=== PATIENT | male | born 1940 | race Caucasian/White ===

== ENCOUNTER 2017-10-22 15:08 | Emergency (ER) | payer MEDICARE, OTHER, SELFPAY ==
[2017-10-22 15:10] VITALS: BP 136/49; PULSE 59; RESP 16; TEMP 36.8; O2SAT 96; BMI 30.8
--- NOTE | 2017-10-22 15:30 | RAD_ITS ---
STUDY: X-RAY - LEFT HAND REASON FOR EXAM: Male, 76 years old. Nail in fingers. TECHNIQUE: 3 view(s) of the hand. COMPARISON: None. FINDINGS: There is a nail spanning the middle phalanges of the left third and fourth fingers. The remainder of the visualized osseous structures are within normal limits. There is no dislocation. There are no radiodense foreign bodies. RAD/Hand Min 3 Views IMPRESSION: Nail spanning the middle phalanges of the left third and fourth fingers. Electronically Signed: Edward Rossi, at 15:54 EDT Tel , Service support ,
--- NOTE | 2017-10-22 15:41 | ED.VISSUMM ---
- ER Visit Summary Date of Service: 10/22/17 Chief Complaint: Nail through and through left long and ring fingers History of Present Illness: The patient is a 76 M past medical history of gout. On no blood thinners. Patient states he was making plantars at home using a pneumatic nail gun and accidentally put a nail through and through his left long finger and then through and through his left ring finger. He is right-hand dominant. States his last tetanus shot was 38 years ago. Physical Examination: Well appearing older male. Vital signs are stable afebrile. Exam is unremarkable except his left hand the palmar distal aspect of the left ring finger is a through and through nail and then he goes into and through and through the distal end of the left ring finger. Both are neurovascularly intact with distal cap refill and touch sensation. Test Results: X-ray of the left hand shows an obvious nail through and through both the left long and ring fingers. There does not appear to be any bony injury. Emergency Department Course and Treatment: Removal of the hardware nail through and through the left long and ring fingers. Digital block of both the long and ring fingers. Once proper anesthetic was obtained. I made an small incision on the ulnar side of the left long finger easily remove the nail from the skin there. There is no involvement of the tendon bone or joint. Then I pulled the nail out of the through and through injury of the left ring finger. Both areas were cleaned thoroughly and washed with saline and also cleaned with iodine. After I removed the nail he had full range of motion back with flexion-extension both the left ring and long fingers. Patient tolerated the procedure exceedingly well. Treatment Plan: Tetanus updated. Keflex 500 4 times daily for 1 week. Follow-up his primary care physician. Both wounds be cleaned and dressed. Disposition: Discharge Impression: Hardware nail through and through soft tissue injury of the left long and ring fingers. Hardware nail removed by ER physician Digital blocks ?2 by ER physician of the left long and ring fingers. This note was generated with [employer] dictation software. It may contain incorrect words, spelling, and punctuation that were not noted in review of the chart prior to signing ED Disposition - Plan for ED Patient: Chief Complaint: Upper Extremity Injury Referrals: Florentino Wright MD [STAFF PHYSICIAN] -
[2017-10-22] MEDS: Diphth,Pertuss(Acell),Tet Vac 0.5 ML Vial IM (15:42)
--- NOTE | 2017-10-22 15:44 | ED.DCSUM_ITS ---
- ER Visit Summary Date of Service: 10/22/17 Chief Complaint: Nail through and through left long and ring fingers History of Present Illness: The patient is a 76 M past medical history of gout. On no blood thinners. Patient states he was making plantars at home using a pneumatic nail gun and accidentally put a nail through and through his left long finger and then through and through his left ring finger. He is right- hand dominant. States his last tetanus shot was 38 years ago. Physical Examination: Well appearing older male. Vital signs are stable afebrile. Exam is unremarkable except his left hand the palmar distal aspect of the left ring finger is a through and through nail and then he goes into and through and through the distal end of the left ring finger. Both are neurovascularly intact with distal cap refill and touch sensation. Test Results: X-ray of the left hand shows an obvious nail through and through both the left long and ring fingers. There does not appear to be any bony injury. Emergency Department Course and Treatment: Removal of the hardware nail through and through the left long and ring fingers. Digital block of both the long and ring fingers. Once proper anesthetic was obtained. I made an small incision on the ulnar side of the left long finger easily remove the nail from the skin there. There is no involvement of the tendon bone or joint. Then I pulled the nail out of the through and through injury of the left ring finger. Both areas were cleaned thoroughly and washed with saline and also cleaned with iodine. After I removed the nail he had full range of motion back with flexion- extension both the left ring and long fingers. Patient tolerated the procedure exceedingly well. Treatment Plan: Tetanus updated. Keflex 500 4 times daily for 1 week. Follow- up his primary care physician. Both wounds be cleaned and dressed. Disposition: Discharge Impression: Hardware nail through and through soft tissue injury of the left long and ring fingers. Hardware nail removed by ER physician Digital blocks ?2 by ER physician of the left long and ring fingers. This note was generated with [employer] dictation software. It may contain incorrect words, spelling, and punctuation that were not noted in review of the chart prior to signing ED Disposition - Plan for ED Patient: Chief Complaint: Upper Extremity Injury Referrals: Florentino Wright MD [STAFF PHYSICIAN] -
--- NOTE | 2017-10-22 16:10 | ED.DEP ---
ED Disposition - Plan for ED Patient: Disposition: Home or Assisted Living Chief Complaint: Upper Extremity Injury Instructions: ED Wound Puncture General Prescriptions: Cephalexin [Keflex] 500 mg PO Q6 7 Days cap Referrals: Choco Burgos DO [Primary Care Provider] - 3-5 Days Additional Instructions: Clean both fingers twice daily and apply antibiotic ointment to the puncture wounds. Return if redness, fever or streaks up the arm. These are all signs of infection. Vicodin as needed for pain. Keflex 1 pill 4 times a day till gone try to prevent infection. Follow-up with in 3-5 days or return to ER if worse.
[2017-10-22] MEDS: Cephalexin 250 MG Capsule 500 MG PO (16:43)
[2017-10-22 16:44] VITALS: BP 132/75; PULSE 58; RESP 14; O2SAT 99
== END 2017-10-22 16:45 | disposition home or self-care (01) ==
PROVIDERS: Emergency Provider Emergency Medicine; Family Provider Family Medicine; PCP Family Medicine
DX: S61.243A Puncture wound with foreign body of left middle finger without damage to nail, initial encounter (principal); S61.245A Puncture wound with foreign body of left ring finger without damage to nail, initial encounter; M10.9 Gout, unspecified; Z23 Encounter for immunization; Z79.899 Other long term (current) drug therapy; W45.0XXA Nail entering through skin, initial encounter; W29.4XXA Contact with nail gun, initial encounter; Y93.89 Activity, other specified; Y92.008 Other place in unspecified non-institutional (private) residence as the place of occurrence of the external cause; Y99.8 Other external cause status
CPT/HCPCS: 10120; 73130; 90715; 99283

== ENCOUNTER → 2018-03-27 16:18 | Outpatient (CLI) | payer MEDICARE, OTHER, SELFPAY ==
[2018-03-27 17:41] LABS: Absolute Lymphocyte Count 2.61 X10^3/ul (0.83-4.51); Absolute Neutrophil Count 3.4 X10^3/uL (2.0-7.7); Basophil# 0.01 X10^3/uL; Basophil% 0.1 % (0-1); Eosinophil# 0.22 X10^3/uL; Eosinophils% 3.1 % (0-5); Hematocrit 44.4 % (40-54); Hemoglobin 14.4 g/dl (13.0-16.5); Lymphocyte # 2.61 X10^3/ul (4.0); Lymphocyte % 36.8 % (19-41); Mean Corp Hgb Conc 32.4 g/gl (32-36); Mean Corpuscular Hgb 33.8 pg (27.0-32.0); Mean Corpuscular Volume 104.2 fL (80-94); Mean Platelet Vol. 9.9 fl (6.2-12.0); Monocyte# 0.88 X10^3/uL; Monocyte% 12.4 % (0-10); Neutrophil # 3.36 X10^3/uL (2.7-7.7); Neutrophil % 47.5 % (47-70); Platelet Count 272 K/mm3 (150-450); RBC Distribution Width CV 13.7 % (11.6-14.6); RBC Distribution Width SD 52.5 fl (35.1-43.9); Red Blood Count 4.26 M/mm3 (4.6-6.2); White Blood Count 7.1 K/mm3 (4.4-11.0)
[2018-03-27 17:46] LABS: POSITIVE COUNT NO; POSITIVE DIFFERENTIAL NO; POSITIVE MORPHOLOGY NO
[2018-03-27 18:29] LABS: ALB/GLOB Ratio 1.2 RATIO (0.9-2.4); AST(SGOT) 25 U/L (15-37); Alanine Aminotransfer ALT/SGPT 41 U/L (16-61); Albumin, Serum 4.1 g/dL (3.2-5.0); Alkaline Phosphatase 65 U/L (45-117); Anion Gap 7 (5-15); BUN 22 mg/dL (7-18); BUN/Creat Ratio 20.8 RATIO (10-20); Calcium,Total 8.5 mg/dL (8.5-10.1); Chloride 102 mmol/L (98-107); Cholesterol 135 mg/dL (200); Creatinine, Serum 1.06 mg/dL (0.70-1.30); EST Glomerular Filtration Rate 72 mL/min (>60); Est Glom Filt Rate - Afr Amer 87 mL/min (>60); Globulin 3.5 g/dL (2.2-4.2); Glucose 102 mg/dL (74-106); High Density Lipoprotein 29 mg/dL; Potassium 4.1 mmol/L (3.5-5.1); Protein, Total 7.6 g/dL (6.4-8.2); Sodium Level 139 mmol/L (136-145); T4 Free Direct 0.88 ng/dL (0.76-1.46); Thyroid Stim Hormone (TSH) 2.07 uIU/mL (0.358-3.74); Triglycerides 327 mg/dL; Very Low Density Lipoprotein 65 mg/dL (5-40)
== END ==
PROVIDERS: Visit Provider Family Medicine
DX: M10.9 Gout, unspecified (principal); M19.90 Unspecified osteoarthritis, unspecified site; R00.1 Bradycardia, unspecified; E78.5 Hyperlipidemia, unspecified; I87.2 Venous insufficiency (chronic) (peripheral); R13.10 Dysphagia, unspecified
CPT/HCPCS: 36415; 80053; 80061; 84439; 84443; 84550; 85025

== ENCOUNTER → 2018-03-31 13:05 | Outpatient (CLI) | payer MEDICARE, OTHER, SELFPAY ==
--- NOTE | 2018-03-31 13:00 | SP.MBSS_ITS ---
PRIMARY / SECONDARY DIAGNOSIS: dysphagia (R13.10) REFERRING PHYSICIAN: Dr. Choco Burgos MD CURRENT DIET: regular textures, thin liquids DENTITION: WFL MENTAL STATUS: WNL, mild disfluencies RESPIRATORY STATUS: O2 via room air PREVIOUS MODIFIED BARIUM SWALLOW STUDY: none REASON FOR REFERRAL: Patient is a 77 year old male referred for a modified barium swallow (MBS) study to objectively assess the Patients oropharyngeal swallow function under fluoroscopy secondary to reported issues with PO intake tolerance, to include a persistent globus sensation that occurs approximately 5-10 minutes into a meal with perceived aerophagia, with the Patient reporting sensations that his swallow will occasionally ?slow down? and ?build up? within the substernal area. The Patient reports initial onset approximately 8-10 years prior, with multiple endoscopic assessments performed secondary to esophageal ulcers, with the Patient further reporting a prior esophageal dilatation that occurred during this timeframe (approximately 5 years prior). The Patients symptoms have gradually increased, though not significantly, and often are ameliorated with a liquid chaser. The Patient denies odynophagia, substernal discomfort, ageusia / dysgeusia, early satiety, xerostomia, or sialorrhea; further denies any aspiration related pulmonary complications. The Patient reports losing 10lbs over the last year, though this is intentional. The Patient ambulated to the study without difficulties, denies any limitations regarding ambulation, is independent for all ADL?s and IADL?s, no significant medical complications reported. MEDICAL HISTORY: Peptic ulcer with hemorrhage, arthritis, gout, prior rotator cuff surgery, chronic back pain. STUDY FINDINGS: Patient participated in a Modified Barium Swallow (MBS) study on 03/31/2018. Dr. Herring was the radiologist present for this evaluation. This study was recorded in the lateral view and images were sent to PACs for storage. The following consistencies were presented to this patient for analysis of oropharyngeal swallow function: thin liquids, pudding, and a regular textured, Smita Doone cookie. Results of the MBS are as follows: PENETRATION / ASPIRATION SCALE (HEARD): 1 = does not enter airway 2 = enters airway/above vocal folds/ejected 3 = enters airway/above vocal folds/not ejected 4 = enters airway/contacts vocal folds/ejected 5 = enters airway/contacts vocal folds/not ejected 6 = enters airway/below vocal folds/ejected 7 = enters airway/below vocal folds/not ejected despite effort 8 = enters airway/below vocal folds/no effort VIDEOFLOROSCOPIC SCALE SCORE (HEARD): Grade I = aspiration of material that has penetrated into the laryngeal vestibule, intact cough reflex Grade II = aspiration < 10 % of the bolus, intact cough reflex Grade III = aspiration of < 10 % of the bolus, reduced cough reflex or aspiration of > 10 % of the bolus, intact cough reflex Grade IV = aspiration of > 10 % of the bolus, reduced cough reflex PENETRATION / ASPIRATION SCALE (SCORE) WITH VIDEOFLOROSCOPIC SCALE SCORE: Thin liquid - 5 mL tsp.: 1 Thin liquids via cup (single sip): 1 Thin liquids via cup (single sip): 1 Thin liquids via cup (single sip): 1 Pudding via spoon: 1 Regular textured cookie: 1 Thin liquids via straw (single sip): 1 Thin liquids via straw (sequential swallows): 8 - Grade III Thin liquids via straw (single sip): 1, 8* - Grade III Thin liquids via straw (single sip): 1 Thin liquids via straw (single sip): 1 * denotes post prandial migration of previously penetrated / aspirated materials IMPRESSION: DIAGNOSIS: mild oropharyngeal dysphagia (R13.12) ORAL PHASE CHARACTERIZED BY: LABIAL SEAL: no labial escape TONGUE CONTROL DURING BOLUS MANIPULATION: cohesive bolus between tongue to palatal seal BOLUS PREPARATION / MASTICATION: timely and efficient chewing and mashing BOLUS TRANSPORT / LINGUAL MOTION: brisk tongue motion ORAL RESIDUE: trace residue lining oral structures PHARYNGEAL PHASE CHARACTERIZED BY: INITIATION OF PHARYNGEAL SWALLOW: bolus head in pyriforms at first hyoid excursion during sequential trials of thin liquids via straw; bolus head in valleculae at first hyoid excursion across all remaining trials SOFT PALATE ELEVATION: no bolus between soft palate and pharyngeal wall LARYNGEAL ELEVATION: complete superior movement of thyroid cartilage with complete approximation of arytenoids cartilage to epiglottic petiole ANTERIOR HYOID EXCURSION: complete anterior movement EPIGLOTTIC MOVEMENT: complete epiglottic inversion LARYNGEAL VESTIBULE CLOSURE AT HEIGHT OF SWALLOW: complete laryngeal vestibule closure with no air/contrast in laryngeal vestibule PHARYNGEAL STRIPPING WAVE: pharyngeal stripping wave present / complete PHARYNGOESOPHAGEAL SEGMENT OPENING: complete distension and complete duration with no obstruction of flow TONGUE BASE RETRACTION: trace column of contrast between tongue base and posterior pharyngeal wall PHARYNGEAL RESIDUE: trace residue within or on pharyngeal structures ESOPHAGEAL PHASE CHARACTERIZED BY: ESOPHAGEAL BOLUS CLEARANCE IN THE UPRIGHT POSITION: complete clearance; esophageal coating EFFECTS OF TREATMENT STRATEGIES ATTEMPTED: Cough and reswallow = effective Reduced bolus size = effective DIET TEXTURE RECOMMENDATIONS: Will recommend a regular textured, thin liquid diet. 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 The Patients swallow profile was primarily marked by pharyngeal swallow timing / dyssynchrony leading to prandial penetration and subsequent SILENT aspiration during sequential ingestion of thin liquids via straw, though was within normal limits across all remaining trials with reduced bolus volumes. Sufficient volitional cough was elicited upon clinician prompting to expel all penetrated and aspirated materials. Mild cricopharyngeal bar located at the C-6 level, no effect on pharyngoesophageal motility. RECOMMENDATIONS: The above mentioned aspiration event occurred with a very small amount of contrast that is not unsurprising when considering the properties of silent aspiration (tendency to occur with smaller volumes / viscosities), with the remaining trials demonstrating a functional oropharyngeal swallow process. When considering the entire study results, and the Patients overall good health, sufficient ambulatory functioning, and lack of pulmonary or neurological compromise, recommendations to continue with regular textures and thin liquids appear appropriate. No concerning esophageal findings were present, though based on the Patients reported symptoms and history of esophageal dilatation it would be appropriate to consider further referral for esophageal workup via hydrator. The Patient was able to comprehend and express recommended intake precautions detailed above with sufficient detail to suggest high likelihood of compliance. Provided brief overview of signs and symptoms of aspiration, with recommendations for the Patient to further discuss symptoms with PCP. No further skilled speech- language services warranted at this time targeting dysphagia. ADDITIONAL COMMENTS/RECOMMENDATIONS: Results and recommendations were discussed with the Patient immediately following MBS completion, with the Patient verbalizing understanding and agreement with all recommendations and education provided. IMAGE COUNT: [id number] G-CODES: SWALLOWING [id number] Current Status: CI SWALLOWING G8997 Goal Status: CI SWALLOWING G8998 Discharge Status: BUTCH Geller M.A. CCC-TRAPEZE ARTIST [facility] Speech-Language Pathology Department [email or web address]
--- NOTE | 2018-03-31 13:07 | RAD_ITS ---
STUDY: SWALLOWING STUDY REASON FOR EXAM: Male, 77 years old. Dysphagia. TECHNIQUE: The examination was performed with Speech Pathology in attendance. Under fluoroscopic observation, the patient ingested thin barium, thick barium, barium pudding, and barium coated cracker. FLUOROSCOPY TIME: 1:54 minutes/seconds. 1781 spot images were obtained. RADIOLOGIST INVOLVEMENT: Radiologist was present and providing direct supervision. COMPARISON: None. FINDINGS: The following was observed during swallowing of the various mixtures of barium: Thin Barium: There was no evidence of aspiration or laryngeal penetration. Barium Pudding: There was no evidence of aspiration or laryngeal penetration. Barium Coated Cracker: There was no evidence of aspiration or laryngeal penetration. RAD/Swallowing Function w/Video IMPRESSION: Normal tailored barium swallow study. No evidence of increased risk for aspiration. The swallow study findings were discussed with the patient by the speech pathologist at the conclusion of the examination. Please see speech pathology report for more information and recommendations. Electronically Signed: Destin Herring MD at 14:03 EDT Tel [phone], Service support ,
== END ==
PROVIDERS: Family Provider Family Medicine; PCP Family Medicine; Referring Provider Family Medicine; Visit Provider Family Medicine
DX: R13.10 Dysphagia, unspecified (principal)
CPT/HCPCS: 74230; 92611; G8996; G8997; G8998

== ENCOUNTER → 2019-05-09 08:40 | Outpatient (CLI) | payer MEDICARE, OTHER, SELFPAY ==
[2019-05-09 12:43] LABS: Absolute Lymphocyte Count 1.98 X10^3/uL (0.83-4.51); Absolute Neutrophil Count 2.5 X10^3/uL (2.0-7.7); Basophil# 0.02 X10^3/uL; Basophil% 0.4 % (0-1); Eosinophil# 0.35 X10^3/uL; Eosinophils% 6.4 % (0-5); Hemoglobin 13.4 g/dL (13.0-16.5); Lymphocyte # 1.98 X10^3/ul (4.0); Lymphocyte % 36.2 % (19-41); Mean Corp Hgb Conc 32.7 g/dL (32-36); Mean Corpuscular Hgb 34.1 pg (27.0-32.0); Mean Corpuscular Volume 104.3 fL (80-94); Mean Platelet Vol. 9.9 fl (6.2-12.0); Monocyte# 0.63 X10^3/uL; Monocyte% 11.5 % (0-10); NRBC Flagged by Analyzer 0 % (0-5); Neutrophil # 2.49 X10^3/uL (2.7-7.7); Neutrophil % 45.5 % (47-70); Platelet Count 301 K/mm3 (150-450); RBC Distribution Width CV 13.5 % (11.6-14.6); RBC Distribution Width SD 52.8 fl (35.1-43.9); Red Blood Count 3.93 M/mm3 (4.6-6.2); White Blood Count 5.5 K/mm3 (4.4-11.0)
[2019-05-09 13:04] LABS: AST(SGOT) 15 U/L (15-37); Alanine Aminotransfer ALT/SGPT 23 U/L (16-61); Albumin, Serum 3.7 g/dL (3.2-5.0); Alkaline Phosphatase 81 U/L (45-117); Anion Gap 5 (5-15); BUN 20 mg/dL (7-18); BUN/Creat Ratio 19.4 RATIO (10-20); Calcium,Total 8.5 mg/dL (8.5-10.1); Chloride 105 mmol/L (98-107); Cholesterol 136 mg/dL (200); Creatinine, Serum 1.03 mg/dL (0.70-1.30); EST Glomerular Filtration Rate 74 mL/min (>60); Est Glom Filt Rate - Afr Amer 90 mL/min (>60); Globulin 3.6 g/dL (2.2-4.2); Glucose 97 mg/dL (74-106); High Density Lipoprotein 34 mg/dL; PSA,Total - Annual Screen 1.06 ng/mL (0.00-4.00); Potassium 4.2 mmol/L (3.5-5.1); Protein, Total 7.3 g/dL (6.4-8.2); Sodium Level 139 mmol/L (136-145); Triglycerides 123 mg/dL; Uric Acid 3.8 mg/dL (3.5-7.2); Very Low Density Lipoprotein 25 mg/dL (5-40)
== END ==
PROVIDERS: Family Provider Family Medicine; PCP Family Medicine; Visit Provider Family Medicine
DX: E78.5 Hyperlipidemia, unspecified (principal); M10.9 Gout, unspecified; Z51.81 Encounter for therapeutic drug level monitoring; Z12.5 Encounter for screening for malignant neoplasm of prostate
CPT/HCPCS: 36415; 80053; 80061; 84153; 84550; 85025; G0103

== ENCOUNTER 2019-05-31 12:08 | Emergency (ER) | payer MEDICARE, OTHER, SELFPAY ==
[2019-05-31 12:10] VITALS: BP 65/40; PULSE 90; RESP 16; TEMP 36.7; BMI 30.5
[2019-05-31] MEDS: 0.9% Normal Saline 1,000 ML 999 ML IV ×2 (12:10→12:45)
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
--- NOTE | 2019-05-31 12:12 | EKG12_ITS ---
Test Reason : HAND LACERATION Blood Pressure : / mmHG Vent. Rate : 057 BPM Atrial Rate : 057 BPM P-R Int : 144 ms QRS Dur : 066 ms QT Int : 448 ms P-R-T Axes : 091 069 032 degrees QTc Int : 436 ms Sinus bradycardia with Fusion complexes Otherwise normal ECG Confirmed by SWATHI CALLAWAY, BEVERLY ([id number]), commercial production editor JOSE MARK ([id number]) on 06/01/2019 10:15:21 AM Referred By: MANGO Confirmed By:MAYTE ECHEVARRIA MD
[2019-05-31] MEDS: Ondansetron 4 MG/2 ML Vial IV (12:15)
--- NOTE | 2019-05-31 12:15 | ED.DCSUM_ITS ---
History of Present Illness Chief Complaint: Laceration Informant: Patient, Retreader Onset: Today Context: Sudden Onset Timing: Continuous Quality: Injury left wrist Location: Left wrist Current Severity: Moderate Maximum Severity: Moderate Worsened by: Miter saw Relieved by: Nothing Associated Symptoms: Unable to extend fingers or thumb Narrative: Patient is a 78-year-old [id number] male with history of gout who presents by ambulance after sustaining significant injury to the left wrist. Last tetanus 1 year ago. He states he had a bagel to eat at 0600 and cheese at 1100. Patient denies antibiotic allergies. Patient denies history of coronary disease or respiratory disease. Prior similar symptoms: No Recent Illness/Hospitalization: No - Past Medical History (1) History of gout Status: Acute Past Medical History - Allergies and Home Meds Allergies/Adverse Reactions: Allergies No Known Allergies Allergy (Verified 10/22/17 15:10) Primary Care Physician: Choco Burgos DO [Primary Care Provider] - Prior records reviewed: Yes Surgical History: no surgical history Lives: Alone Smoking Status: Former smoker Alcohol: None Drugs: None Review of Systems General: Denies: Chills, Fever Eyes: Denies: Visual changes - bilaterally, Blurred Vision - bilaterally Cardiovascular: Denies: Chest pain, Palpitations Respiratory: Denies: Dyspnea, Dyspnea on exertion Gastrointestinal: Reports: Nausea. Denies: Abdominal pain, Vomiting, Diarrhea Genitourinary: Denies: Dysuria, Frequency Musculoskeletal: Reports: Extremity Pain. Denies: Myalgias, Arthralgias, Neck pain, Back pain Skin: Reports: Wounds. Denies: Rash Neurological: Reports: Weakness, Parasthesia, Numbness. Denies: Headache Endocrine: Denies: Polyuria, Polydipsia Hematologic: Denies: Easy bruising, Easy bleeding Physical Exam Vital Signs/Narrative: Vital Signs Temp Pulse Resp BP 05/31/19 12:10 98.0 F 90 16 65/40 L Inital Vital Signs reviewed: Yes General: Well nourished, Well developed, No Acute Distress Head: Normocephalic, Atraumatic Eyes: Perrl, EOMI. Negative for: Pale conjunctiva, Scleral icterus ENT: Moist mucous membranes, No rhinorrhea Neck: Supple, Nontender, No lymphadenopathy, No JVD Cardiovascular: Regular rate, Regular rhythm, No murmurs, Normal S1, Normal S2 Respiratory: No distress, CTA bilaterally, Chest nontender Abdomen: Soft, Nontender, Nondistended, Normal bowel sounds Back: Nontender, Normal Inspection Extremities: No edema, - - There is a transverse laceration dorsal side left wrist. Patient is unable to extend his thumb, index finger, long finger, ring finger or little finger. Two-point discrimination is absent in all of his finge rs. Cap refill is delayed. Skin: Normal color, No rash Neurological: Alert, Oriented x3, Cranial nerves II-XII grossly intact, Normal Strength, Normal Sensation Psychological: Normal affect, Normal Mood Diagnostic/Tx/Re-eval 05/31/19 12:12 Wrist 2 Views [RAD] Stat Laboratory Results 05/31/19 05/31/19 12:24 12:24 WBC 6.5 RBC 3.38 L Hgb 11.8 L Hct 36.2 L MCV 107.1 H MCH 34.9 H MCHC 32.6 RDW Std Deviation 52.7 H RDW Coeff of Bola 13.5 Plt Count 239 MPV 9.9 Immature Gran % (Auto) 0.200 Neut % (Auto) 37.4 L Lymph % (Auto) 46.[address] [place] % (Auto) 9.7 Eos % (Auto) 5.6 H Baso % (Auto) 0.3 Absolute Neuts (auto) 2.4 Absolute Lymphs (auto) 3.03 Nucleated RBC % 0 Sodium 143 Potassium 3.6 Chloride 109 H Carbon Dioxide 26.0 Anion Gap 8 BUN 25 H Creatinine 1.09 Estim Creat Clear Calc 55.85 Est GFR (MDRD) Af Amer 84 Est GFR (MDRD) Non-Af 69 BUN/Creatinine Ratio 22.9 H Glucose 123 H Calcium 8.2 L 2 view x-ray of the wrist reveals multiple fragments on the lateral view. There is no significant involvement of the carpal bones or distal radius or ulna. Case was discussed with Dr. Ramirez. He was made aware of patient's history, physical findings and concern. He recommended the bleeding sites be ligated. There were 3 bleeding sites. One I believe is arterial. Using 4-0 Vicryl [id number] stitches were placed. Bleeding was under control. Tourniquet was released. Patient's fingers are now pink with normal capillary refill. Patient was placed in a short arm volar plaster splint. - EKG Initial EKG Interpretation: Sinus Bradycardia - Sinus bradycardia with a ventricular rate of 57. KS interval 146 ms. QS duration 66 ms. QT duration 448 ms. Boomer is normal. With the computer is reading his fusion beats is artifact. - Medical Decision Making X-ray of the wrist was obtained to delineate extent of injury. He received a gram of Ancef. He is made n.p.o. Appropriate preop blood work was obtained. He was referred to [facility]. He became hypotensive. Suspect this is a vagal response since he is bradycardic and pale. He will receive a 500 cc bolus. Since he is complaining of pain is hypotensive he received fentanyl for the pain and for Zofran for nausea. Impression: 1. Complex laceration left wrist, traumatic arthrotomy 2. Laceration of the extensor pollicis longus, extensor pollicis brevis, extensor indicis tendon, extensor commonness tendon and extensor minimus tendon 3. Traumatic paresthesia Procedures - Upper Extremity Splints Upper Extremity Splint: Plaster, - - Short arm volar Splint Fabrication: Fabricated Location: Left ED Disposition - Plan for ED Patient: Disposition: [facility] Diagnosis: Complex laceration left wrist Referrals: Choco Burgos DO [Primary Care Provider] -
[2019-05-31 12:16] VITALS: BP 84/49
[2019-05-31] MEDS: fentaNYL 100 MCG/2 ML Ampul 50 MCG IV ×2 (12:20→12:48)
[2019-05-31] MEDS: Cefazolin 1 GM/50 ML BAG IV (12:22)
[2019-05-31 12:30] VITALS: BP 128/56; PULSE 52; RESP 16; O2SAT 98
[2019-05-31 12:33] LABS: Absolute Lymphocyte Count 3.03 X10^3/uL (0.83-4.51); Absolute Neutrophil Count 2.4 X10^3/uL (2.0-7.7); Basophil# 0.02 X10^3/uL; Basophil% 0.3 % (0-1); Eosinophil# 0.36 X10^3/uL; Eosinophils% 5.6 % (0-5); Hematocrit 36.2 % (40-54); Hemoglobin 11.8 g/dL (13.0-16.5); Lymphocyte # 3.03 X10^3/ul (4.0); Lymphocyte % 46.8 % (19-41); Mean Corp Hgb Conc 32.6 g/dL (32-36); Mean Corpuscular Hgb 34.9 pg (27.0-32.0); Mean Corpuscular Volume 107.1 fL (80-94); Mean Platelet Vol. 9.9 fl (6.2-12.0); Monocyte# 0.63 X10^3/uL; Monocyte% 9.7 % (0-10); NRBC Flagged by Analyzer 0 % (0-5); Neutrophil # 2.42 X10^3/uL (2.7-7.7); Neutrophil % 37.4 % (47-70); Platelet Count 239 K/mm3 (150-450); RBC Distribution Width CV 13.5 % (11.6-14.6); RBC Distribution Width SD 52.7 fl (35.1-43.9); Red Blood Count 3.38 M/mm3 (4.6-6.2); White Blood Count 6.5 K/mm3 (4.4-11.0)
--- NOTE | 2019-05-31 12:35 | ED.RN ---
CAT TOURNIQUET APPLIED BY EMS
--- NOTE | 2019-05-31 12:39 | ED.RN ---
DR. COBIAN AT BEDSIDE SUTURING
[2019-05-31 12:45] LABS: Anion Gap 8 (5-15); BUN 25 mg/dL (7-18); BUN/Creat Ratio 22.9 RATIO (10-20); Calcium,Total 8.2 mg/dL (8.5-10.1); Chloride 109 mmol/L (98-107); Creatinine, Serum 1.09 mg/dL (0.70-1.30); EST Glomerular Filtration Rate 69 mL/min (>60); Est Glom Filt Rate - Afr Amer 84 mL/min (>60); Estimated Creatinine Clearance 55.85 ml/min; Glucose 123 mg/dL (74-106); Potassium 3.6 mmol/L (3.5-5.1); Sodium Level 143 mmol/L (136-145)
--- NOTE | 2019-05-31 12:45 | ED.RN ---
CAT TOURNIQUET REMOVED, BLEEDING CONTROLLED AFTER SUTURING. GAUZE AND SPLINT APPLIED BY DR. COBIAN.
[2019-05-31 12:54] VITALS: BP 116/52; PULSE 60; RESP 17; O2SAT 98
== END 2019-05-31 13:11 | disposition short-term general hospital (02) ==
PROVIDERS: Emergency Provider Emergency Medicine; Family Provider Family Medicine; PCP Family Medicine
DX: S61.512A Laceration without foreign body of left wrist, initial encounter (principal); S66.822A Laceration of other specified muscles, fascia and tendons at wrist and hand level, left hand, initial encounter; R20.2 Paresthesia of skin; R00.1 Bradycardia, unspecified; M10.9 Gout, unspecified; Z79.899 Other long term (current) drug therapy; Z87.891 Personal history of nicotine dependence; W26.9XXA Contact with unspecified sharp object(s), initial encounter; Y93.89 Activity, other specified; Y92.89 Other specified places as the place of occurrence of the external cause; Y99.8 Other external cause status
CPT/HCPCS: 29125; 73100; 80048; 85025; 93005; 96365; 96375; 99285; J7030; A4216; J2405

== ENCOUNTER 2019-08-30 09:00 | Outpatient (RCR) | payer MEDICARE, OTHER, SELFPAY ==
--- NOTE | 2019-06-13 11:57 | HP.OTEVAL ---
Patient's Visit Information RUTH GUZMAN is a 78 year old M, referred to Occupational Therapy by Sen Ramirez MD, with a diagnosis of left hand injury extensor tendon/ carpal bone fracture. Date of Evaluation: 06/12/19 Occupational Therapist: Phuong Gómez, MILE/Henry, CHT - Subjective Subjective: This 78-year-old male was seen for OT eval with dx of left-hand laceration- pt states while working on making wooden steps pt had contact with power saw- This happened on 05/31/19. Pt underwent left hand tenosynovectomy of left hand and wrist/ Repair of ECRB and ECU- pt arrives with custom orthosis- one resting and one for exercises. Per Dr. herrera pt can perform ROM digits at PIP/ tendon glides in exercise splint. - ADLs Comments: pt limited with all ADLs and IADLs at this time- pt states his dtr livers two houses down from him and helps him as needed. - Pain left hand 4 Pain Intensity Range: 3, 6 - ROM ROM Comments: left IF PIP 0/90. left MF PIP 0/75. left RF PIP 0/75. left LF PIP 0/70. left MCP resting at 15* flex. full left thumb ROM - Strength Strength Comments: will test at later date - Edema Wrist: right 18cm left 19.5cm PIP: right MF 6.6 left MF 7.0 Proximal Phalanx: right 21cm left 22cm - Sensation Sensation Comments: reports light touch on dorsal side of hand- limited sensation around incisiion - Quick DASH-Disab of Arm,Shoulder& Hand Quick DASH Score: 52.2725 - Goals Goal:100% adherence to protocol: Yes Comment: ECRB and ECU repair protocol- dr. gruber Goal:Daily scar massage when approriate: Yes Goal:ROM equal to unaffected hand: Yes Goal:Automotive Worker Foreman/Pinch strength at least 75% of unaffected hand: Yes Goal:No pain with affected hand use: Yes Goal:PIP Circumferences equal to unaffected hand: Yes Goal:Full use of affected hand in daily activities including: Yes Goal:Decrease scar hypersensitivity: Yes - Rehabilitation General Assessment: pt is 1 week and 5 days s/p from ECRB and ECU repair and tenosynovectomy of left hand and wrist. Due to healing structures pt limited with ROM and use of his left hand for ADLs and IADLs. Pt demo need for skilled OT services 1-2x week for 6-8 weeks. Today therapist adj. pt custom orthosis to increase comfort and fit, Therapist ed. pt on scar mtg, desensitization, ed. on tendon protocol and healing. Therapist instructed pt in PIP ROM of digits and tendon glide ex while in exercise orthosis. Pt demo understanding and agree to POC. Rehabilitation Potential: Good - Anticipated Interventions Anticipated Interventions: A/AAROM/PROM, Strengthening, Edema Control, Scar Care, Triggerpoint Release, Desensitization, Sensory Retraining, Modalities, Orthoses, Joint Protection/Energy Conservation, Ergonomic Education - Visit Plan Frequency: 1-2x /Week Duration: 6 Weeks TEXT: Thank you for the opportunity to evaluate your patient. For Medicare and Medicare HMO plans, please review the plan of care and approve it. It will need to be FAXED BACK to us at [phone] for Medicare purposes. Please let me know if there are questions or concerns regarding this plan of care. Physician Signature: Date:
--- NOTE | 2019-07-12 12:28 | HP.OTREVAL ---
Sen Ramirez MD, It has been my pleasure to treat RUTH GUZMAN over the last 10 visits for left hand injury extensor tendon/ carpal bone fracture. Please see the progress note below for an update on the occupational therapy plan of care! Subjective: pt arrives with othosis- as he is in ex. othosis at this time pt in moving fingers more- Objective/Function: PT demo with limited left digit flex/ext and wrist flex/ext- with MCP supported pt demo with full digit PIP and DIP flex/ext. No ability to ext MCP they are demo with 15* lag. wrist flex of 15* and ext to 0*. Therapist adj. night orthosis to increase MCPs at rest to 0* and changed strapping to decrease pts initiation of wrist flex. with exercise orthosis. Pt demo with possible scar adhesions limiting pts ROM progress at this time. Therapist is has pt using elastomer at night for scar, scar mtg, place and hold wrist ext/ and MCP ext exercise.- pt in exercise orthosis to increase tendon glides- pt performing opposition of digits, edema control and wrist flex/ext ex to increase pts functional ROM. Plan Frequency: 1-2x /Week Duration: 6 Weeks Plan: pt to see Tuesday07/20/19 Anticipated Interventions Anticipated Interventions: A/AAROM/PROM, Strengthening, Edema Control, Scar Care, Triggerpoint Release, Desensitization, Sensory Retraining, Modalities, Orthoses, Joint Protection/Energy Conservation, Ergonomic Education Please do not hesitate to contact me at [phone] by phone or if you have questions or concerns regarding this new plan of care! Sincerely, Phuong Gómez, DAKSHAR/L, CHT
--- NOTE | 2019-08-28 09:39 | HP.OTREVAL ---
Sne Ramirez MD, It has been my pleasure to treat RUTH GUZMAN over the last 21 visits for left hand injury extensor tendon/ carpal bone fracture. Please see the progress note below for an update on the occupational therapy plan of care! Subjective: pt states he is doing ok hasn't notice a change in his ROM. pt reports he using his hand as much as he can- and cont. use of night orthosis. Objective/Function: Pt demo limited digit ext- therapy has used Manual scar edel. functional estim to stimulate ext. mech- use of FES with flex of digits to get counterfource from FES wrist ext. left wrist 35/25. 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 left lateral pinch 10#. left tripod pinch 8#. MCP TROM 30* average-. pt has been wearing orthosis that places his wrist and digits in hyper-extension- pt has reverse blocking orthosis- pt useing elastomer at night and attempting to return use of left hand with daily occupations. Plan Frequency: 1-2x /Week Duration: 6 Weeks Plan: pt return to for re-check- will see what doctor decides from there. Anticipated Interventions Anticipated Interventions: A/AAROM/PROM, Strengthening, Edema Control, Scar Care, Triggerpoint Release, Desensitization, Sensory Retraining, Modalities, Orthoses, Joint Protection/Energy Conservation, Ergonomic Education Please do not hesitate to contact me at [phone] by phone or if you have questions or concerns regarding this new plan of care! Sincerely, Phuong Gómez, OTR/L, CHT
--- NOTE | 2019-11-13 12:02 | HP.OTDCSUM ---
It has been my pleasure to treat RUTH GUZMAN under orders from Dr. Sen Ramirez MD, for the diagnosis of left hand injury extensor tendon/ carpal bone fracture for a total of 22 visit(s). Please see the following information for a summary of their discharge status. % Improvement: 70 Objective/Function: Pt demo limited digit ext- therapy has used Manual scar edel. functional estim to stimulate ext. mech- use of FES with flex of digits to get counterfource from FES wrist ext. left wrist 35/25. left manager customer service 32#. left lateral pinch 10#. left tripod pinch 8#. MCP TROM 30* average-. pt has been wearing orthosis that places his wrist and digits in hyper-extension- pt has reverse blocking orthosis- pt useing elastomer at night and attempting to return use of left hand with daily occupations. Patient Goals: Regain Mobility, Use Hand/Wrist/Arm Normally Again, Be More Independent in ADLS Goal:100% adherence to protocol: Yes Goal:Daily scar massage when approriate: Yes Goal:ROM equal to unaffected hand: Yes Goal:Porter Head/Pinch strength at least 75% of unaffected hand: Yes Goal:No pain with affected hand use: Yes Goal:PIP Circumferences equal to unaffected hand: Yes Goal:Full use of affected hand in daily activities including: Yes Goal:Decrease scar hypersensitivity: Yes Plan: will place pt on hold If there are questions or concerns regarding this patient's occupational therapy, please fell free to call me at [phone]. Thank you for the referral of this patient. Sincerely, Phuong Gómez, OTR/L, CHT
== END 2019-08-30 19:00 | disposition home or self-care (01) ==
LOC: OT 09:00
PROVIDERS: Family Provider Family Medicine; PCP Family Medicine; Referring Provider Orthopaedic Surgery; Visit Provider Orthopaedic Surgery
DX: S66.901D Unspecified injury of unspecified muscle, fascia and tendon at wrist and hand level, right hand, subsequent encounter (principal); S66.902D Unspecified injury of unspecified muscle, fascia and tendon at wrist and hand level, left hand, subsequent encounter; S62.109D Fracture of unspecified carpal bone, unspecified wrist, subsequent encounter for fracture with routine healing; W31.2XXD Contact with powered woodworking and forming machines, subsequent encounter
CPT/HCPCS: 97035; 97110; 97140; 97166; 97530; 97763

== ENCOUNTER → 2019-11-23 11:38 | Outpatient (CLI) | payer MEDICARE, OTHER, SELFPAY ==
[2019-11-23 15:20] LABS: Absolute Lymphocyte Count 1.82 X10^3/uL (0.83-4.51); Absolute Neutrophil Count 2.3 X10^3/uL (2.0-7.7); Basophil# 0.02 X10^3/uL; Basophil% 0.4 % (0-1); Eosinophils% 4.1 % (0-5); Hematocrit 37.7 % (40-54); Hemoglobin 12.1 g/dL (13.0-16.5); Lymphocyte # 1.82 X10^3/ul (4.0); Lymphocyte % 37.4 % (19-41); Mean Corp Hgb Conc 32.1 g/dL (32-36); Mean Corpuscular Hgb 33.8 pg (27.0-32.0); Mean Corpuscular Volume 105.3 fL (80-94); Mean Platelet Vol. 10.1 fl (6.2-12.0); Monocyte# 0.48 X10^3/uL; Monocyte% 9.9 % (0-10); NRBC Flagged by Analyzer 0 % (0-5); Neutrophil # 2.34 X10^3/uL (2.7-7.7); Neutrophil % 48.2 % (47-70); Platelet Count 284 K/mm3 (150-450); RBC Distribution Width CV 15.3 % (11.6-14.6); RBC Distribution Width SD 59.9 fl (35.1-43.9); Red Blood Count 3.58 M/mm3 (4.6-6.2); White Blood Count 4.9 K/mm3 (4.4-11.0)
[2019-11-23 15:46] LABS: Erythrocyte Sedimentation Rate 19 mm/hr (0-20)
[2019-11-23 16:59] LABS: Ferritin 32 ng/mL (26-388); Folates, (Folic Acid) > 100.00 ng/mL (3.1-55.4); Free T3 2.8 pg/mL (2.18-3.98); Iron 116 ug/dL (65-175); Prolactin 7.1 ng/mL; T4 Free Direct 0.93 ng/dL (0.76-1.46); T4 Total, Thyroxin 7.7 ug/dL (4.5-12.1); Thyroid Stim Hormone (TSH) 2.34 uIU/mL (0.358-3.74)
[2019-11-23 18:00] LABS: Vitamin B12 > 2000 pg/mL (211-911)
[2019-11-30 02:52] LABS: Methylmalonic Acid Bld 199
[2019-12-04 16:08] LABS: Endomysial Antibody IgA Negative (Negative); Immunoglobulin A 294 mg/dL (61-437); Testosterone, % Free 1.41 % (1.50-4.20); Testosterone, Free 3.31 ng/dL (5.00-21.00); Thyroxin Bind Glob (TBG) 11 ug/mL (13-39)
[2019-12-05 09:38] LABS: Anti-Thyroglobulin AB 1.9 IU/mL (0.0-0.9); Testosterone, Total 235 ng/dL (264-916); Thyroglobulin RIA 69 ng/mL (.); Thyroid Peroxidase AB 71 IU/mL (0-34); t-Transglutaminase IgA <2 U/mL (0-3)
== END ==
PROVIDERS: PCP Family Medicine; Visit Provider Family Medicine
DX: R53.83 Other fatigue (principal); R94.6 Abnormal results of thyroid function studies; R20.2 Paresthesia of skin; K21.9 Gastro-esophageal reflux disease without esophagitis; R10.9 Unspecified abdominal pain; E53.8 Deficiency of other specified B group vitamins; D53.9 Nutritional anemia, unspecified; M62.81 Muscle weakness (generalized); R79.89 Other specified abnormal findings of blood chemistry
CPT/HCPCS: 36415; 82024; 82607; 82728; 82746; 82784; 83516; 83540; 83921; 84146; 84402; 84403; 84432; 84436; 84439; 84442; 84443; 84481; 85025; 85652; 86255; 86376; 86800

== ENCOUNTER 2020-04-17 21:38 | Emergency (ER) | payer MEDICARE, OTHER, SELFPAY ==
[2020-04-17 21:39] VITALS: BP 139/50; PULSE 65; RESP 16; TEMP 36.3; O2SAT 98; BMI 29.7
--- NOTE | 2020-04-17 21:59 | ED.VISSUMM ---
- ER Visit Summary Date of Service: 04/17/20 Chief Complaint: Right hand pain History of Present Illness: The patient is a 79 M who presents with pain in his right hand. Patient states he had carpal tunnel surgery today. Patient states he was told to have it checked if his fingers turn blue. Patient noted some blueness of his right fifth finger. Patient describes the pain as mild aching. Patient states he was having some paresthesias in his right hand prior to his surgery and these have not changed. Patient denies any weakness. Patient states he has been keeping his hand elevated. Physical Examination: Vital signs are stable. Patient is afebrile. Patient is in no acute distress. Examination of the right hand reveals some ecchymosis over the palmar aspect of the right hand as well as the palmar aspect of the right fifth finger. There is no cyanosis. Capillary refill is less than 2 seconds in all digits. Sensation was intact to light touch in all digits. A volar splint was in place. Range of motion of the right wrist was limited secondary to the splint. Emergency Department Course and Treatment: The Robert wrap was removed. Some of the Webril cast padding was cut on the ulnar aspect of the right hand. The Robert wrap was replaced loosely. Patient was instructed to keep his hand elevated. Patient was instructed to follow-up with his surgeon as scheduled. Patient understood and was agreeable with the plan. All questions were answered. Disposition: Discharge home Impression: Postoperative ecchymosis This note was generated with [employer] dictation software. It may contain incorrect words, spelling, and punctuation that were not noted in review of the chart prior to signing ED Disposition - Plan for ED Patient: Disposition: Home or Assisted Living Diagnosis: Postoperative ecchymosis Instructions: ED EXTREMITY CONTUSION Upper Referrals: Choco Burgos DO [Primary Care Provider] - 5-7 Days Sen Ramirez MD [NON-STAFF] - Keep Dustin appointment
== END 2020-04-17 22:12 | disposition home or self-care (01) ==
LOC: ED 22:11
PROVIDERS: Emergency Provider Emergency Medicine; PCP Family Medicine
DX: M79.641 Pain in right hand (principal)
CPT/HCPCS: 99282

== ENCOUNTER 2020-04-27 13:35 | Emergency (ER) | payer MEDICARE, OTHER, SELFPAY ==
[2020-04-27] VITALS (14 sets, daily range): BP systolic 108–145; BP diastolic 50–77; PULSE 53–82; RESP 13–22; TEMP 36.9; O2SAT 99–100; BMI 34.4
--- NOTE | 2020-04-27 14:03 | RAD_ITS ---
STUDY: X-RAY - LEFT ANKLE REASON FOR EXAM: Male, 79 years old. DOG TRIPPED PT, INJURING LEFT ANKLE WITH FALL, DEFORMITY, HEARD BONES POP WHEN HE FELL. NO LOC. TECHNIQUE: 2 view(s) of the ankle. COMPARISON: None. FINDINGS: There is an osseous density projecting over the distal tibia on both AP and lateral views. Abnormal orientation of the talus on the AP view with rotation of the mid and forefoot. Widening of the medial and anterior tibiotalar articulation. There is soft tissue swelling. RAD/Ankle 2 Views IMPRESSION: Fracture dislocation of the tibiotalar articulation, limited detail on [address] is recommended. Electronically Signed: Nishant Ga MD (Brooks) at 14:34 EST , Service support ,
--- NOTE | 2020-04-27 14:04 | ED.VISSUMM ---
- ER Visit Summary Date of Service: 04/27/20 Chief Complaint: Fall History of Present Illness: The patient is a 79 M who presents after a fall that occurred today. Patient states his dog was running and knocked him over. Patient states he twisted his left ankle and felt a pop. Patient states the pain is aching. Patient states pain is worse with any movement. Patient denies any paresthesias or weakness. Patient denies any head injury or loss of consciousness. Patient denies any other injuries. Physical Examination: Vital signs are stable. Patient is afebrile. Patient is in no acute distress. Musculoskeletal exam reveals tenderness over the left ankle. There is a deformity noted. Pedal pulses are equal bilaterally. Sensation was intact to light touch in all digits capillary refill was less than 2 seconds in all digits. There is no tenderness over the proximal fibula or fifth metatarsal. Test Results: Two-view x-rays of the left ankle were obtained. My interpretation, there is a fracture of the distal fibula and dislocation of the tibiotalar joint. The radiologist also interpreted the x-ray and agrees. Repeat x-rays of the left ankle were obtained. There were 3 views. My interpretation, there is near complete reduction of the tibiotalar joint and good alignment of the distal fibula fracture. There is still some widening of the medial joint space. Radiologist also interpreted the x-rays and agrees. Emergency Department Course and Treatment: Patient was given a dose of morphine here initially. Patient was consented for conscious sedation. Patient agrees with conscious sedation. Patient was given a dose of propofol, 70 mg IV. Patient was sedated with this. The ankle was reduced. A well-padded custom made posterior and sugar tong splint was applied using Ortho-Glass. Patient tolerated the procedure well. There were no episodes of hypoxia. Patient awoke at the end of the procedure without difficulty. Repeat x-rays were obtained. Patient had recent carpal tunnel surgery at [facility] and wishes to follow-up with [facility]. Patient was advised that his hand surgeon will not follow his ankle fracture but another orthopedic surgeon there will. Patient states he has a prescription for Vicodin at home. Patient was advised to use this as needed for pain. Patient understands and is agreeable with the plan. All questions were answered. Disposition: Discharge home Impression: 1. Acute fracture dislocation left ankle This note was generated with Dragon dictation software. It may contain incorrect words, spelling, and punctuation that were not noted in review of the chart prior to signing ED Disposition - Plan for ED Patient: Disposition: Home or Assisted Living Diagnosis: Fracture dislocation of left ankle joint Instructions: ED Ankle Fracture Referrals: Choco Burgos DO [Primary Care Provider] - 5-7 Days Additional Instructions: Follow-up with [facility] orthopedic surgery for further treatment of your fracture. This may require surgery. Call tomorrow to schedule an appointment.
[2020-04-27] MEDS: Morphine 4 MG/ML Syringe IV (14:09)
[2020-04-27] MEDS: Propofol 200 MG/20 ML Vial IV BOLUS (15:47)
--- NOTE | 2020-04-27 15:59 | RAD_ITS ---
STUDY: X-RAY - LEFT ANKLE REASON FOR EXAM: Male, 79 years old. post reduction left ankle TECHNIQUE: 3 view(s) of the ankle. COMPARISON: None. FINDINGS: Obliquely oriented fracture of the distal fibula identified. There is improved alignment of the tibiotalar articulation with persistent widening of the medial joint. Calcaneal enthesophyte and spur present. The visualized subtalar, talonavicular, calcaneocuboid and tarsal articulations are normal. There is soft tissue swelling. RAD/Ankle min 3 Views IMPRESSION: Near complete reduction of tibiotalar joint dislocation. LOPEZ C distal fibular fracture. Electronically Signed: Nishant Ga MD (Brooks) at 16:24 EST , Service support ,
== END 2020-04-27 17:32 | disposition home or self-care (01) ==
PROVIDERS: Emergency Provider Emergency Medicine; PCP Family Medicine
DX: S82.892A Other fracture of left lower leg, initial encounter for closed fracture (principal); W01.0XXA Fall on same level from slipping, tripping and stumbling without subsequent striking against object, initial encounter
CPT/HCPCS: 27788; 29515; 73600; 73610; 96374; 96375; 99152; 99285; J7030; A4216

== ENCOUNTER → 2020-05-02 13:17 | Outpatient (CLI) | payer MEDICARE, OTHER, SELFPAY ==
[2020-04-27 13:39] VITALS: BMI 34.4
--- NOTE | 2020-05-02 13:23 | CT_ITS ---
STUDY: CT LEFT ANKLE WITHOUT CONTRAST REASON FOR EXAM: Male, 79 years old. FRACTURE LEFT ANKLE 04/27/20. HIT BY RUNNING DOG RADIATION DOSAGE (If Supplied By Facility): CTDIvol = ( 6.26 ) mGy, DLP = ( 159.93 ) mGycm TECHNIQUE: Thin section transaxial imaging of the ankle was obtained, with sagittal and coronal reconstructed images. Individualized dose optimization techniques were used for this CT. COMPARISON: and April 2020 FINDINGS: There is a fracture of the posterior distal tibia with intra-articular extension and a small, 1 mm step-off. There is a fracture of the distal fibula beginning approximately 1 cm proximal to the joint surface and extending proximally in a short oblique orientation with mild displacement of the components, approximately 5 mm. There is a lateral subluxation of the talus with respect to the tibia with widening of the medial joint space. Talus and calcaneus are intact with located subtalar joints. There is a large os trigonum. Midfoot is intact. There is soft tissue edema and peripheral arterial calcification. Appearance is stable since prior. CT/Extremity Lower without Contra IMPRESSION: 1. Stable exam. 2. Posterior malleolar fracture. 3. Lopez C distal fibular fracture. 4. Tibiotalar subluxation Electronically Signed: Lobito Cheng, at 19:00 EST Tel , Service support ,
== END ==
PROVIDERS: PCP Family Medicine; Referring Provider Physician Assistant Surgical; Visit Provider Physician Assistant Surgical
DX: S93.05XA Dislocation of left ankle joint, initial encounter (principal); S82.842A Displaced bimalleolar fracture of left lower leg, initial encounter for closed fracture
CPT/HCPCS: 73700

== ENCOUNTER 2020-05-07 19:40 | Emergency (ER) | payer MEDICARE, OTHER, SELFPAY ==
[2020-04-27 13:39] VITALS: BMI 34.4
[2020-05-07 19:41] VITALS: BP 123/43; PULSE 69; RESP 16; TEMP 36.6; O2SAT 98; BMI 29.6
--- NOTE | 2020-05-07 20:01 | EKG12_ITS ---
Test Reason : SOB Blood Pressure : / mmHG Vent. Rate : 062 BPM Atrial Rate : 062 BPM P-R Int : 158 ms QRS Dur : 076 ms QT Int : 408 ms P-R-T Axes : 024 073 052 degrees QTc Int : 414 ms Normal sinus rhythm Normal ECG Confirmed by SWATHI CALLAWAY, BEVERLY ([id number]), script editor SHARIF MARINELLI ([id number]) on 05/09/2020 2:06:06 PM Referred By: ALINE Confirmed By:MAYTE ECHEVARRIA MD
--- NOTE | 2020-05-07 20:01 | CT_ITS ---
STUDY: CTA CHEST REASON FOR EXAM: Male, 79 years old. SOB WITH NAUSEA,PT HAS FRACTURED LEG AND DUE TO HAVE SURGERY THIS WEEK RADIATION DOSAGE (If Supplied By Facility): CTDIvol = ( 13.90 ) mGy, DLP = ( 441.27 ) mGycm TECHNIQUE: The examination was performed with the intravenous administration of IV 100mL Isovue-370. Post-processing of the angiographic images was performed, with multiplanar reformation and 3D reconstruction. Individualized dose optimization techniques were used for this CT. COMPARISON: None. FINDINGS: There is no evidence of pulmonary embolus. There is no evidence of thoracic aortic aneurysm or dissection. There are patchy peripheral ground glass opacities throughout both lungs. There are no pleural effusions. There is pneumothorax. There is a 3.7 x 2.7 cm heterogeneous nodule in the left lobe of the thyroid. There is no thoracic lymphadenopathy. The heart and pericardium are within normal limits. Images through the upper abdomen demonstrate no significant abnormality. There are no destructive osseous lesions. CT/CTA Chest W/WO Contrast IMPRESSION: No evidence of pulmonary embolus. No evidence of thoracic aortic aneurysm or dissection. Patchy peripheral groundglass opacities in both lungs. COVID Pneumonia should be excluded. 3.7 x 2.7 cm heterogeneous nodule in the left lobe of the thyroid. A follow-up ultrasound is recommended. Electronically Signed: Edward Rossi, at 21:44 EST Tel , Service support ,
--- NOTE | 2020-05-07 20:04 | ED.DCSUM_ITS ---
- ER Visit Summary Date of Service: 05/07/20 Chief Complaint: [Shortness of breath] History of Present Illness: The patient is a 79 M [presents to the emergency department complaint of shortness of breath that started 11 days ago and has been intermittent. Patient states that every now and then he will have these episodes where he will feel like he cannot catch his breath or take a deep breath and he will feel very dyspneic. Patient had an episode today going to the bathroom where he was short so short of breath that he could not speak. Patient states that he broke his leg about 11 days ago and ever since that time he has been having episodes like this. Patient discussed with his physician and there was concern about possible blood clot so he presents for evaluation. Patient does not have history of PE or DVT. Patient has no heart history. Not currently having any chest discomfort. No COVID-19 exposures known. He is not had a fever or significant cough. Patient is scheduled to have surgery on his left leg in about 8 days.] Physical Examination: [HEENT-PERRLA, EOMI. Cranial nerves II through XII grossly intact. TMs clear. Mucous membranes moist. No adenopathy. Cardiovascular-regular rate and rhythm without murmur or ectopy Lungs-aeration bilaterally with some coarse breath sounds and faint rales in the bases. No significant tachypnea. No accessory muscle use or retractions. Abdomen-normoactive bowel sounds, soft, nontender, no rebound or rigidity, no peritoneal signs. Extremities-intact ?4, normal range of motion, normal pulses, atraumatic] Test Results: [CBC with differential obtained showed a white count of 6.8, hem oglobin 12.7, hematocrit 39, placed 258. Chemistries unremarkable. Covid antigen test was negative. CTA of the chest obtained showed no evidence of PE or dissection however he did have bilateral groundglass opacities consistent with Covid.] Emergency Department Course and Treatment: [Patient had a PCR Covid test ordered which will be a send out. Patient was started on dexamethasone 10 mg IV and also will be given Levaquin 750 mg p.o.] Treatment Plan: [We will be treated with Levaquin for 4 more days. He is advised to self isolate and quarantine till he gets his results back from the PCR testing. Patient advised to return if increasing shortness of breath or condition should worsen anyway.] Disposition: [Discharged home in stable condition] Impression: [Dyspnea Viral pneumonia-suspect COVID-19] This note was generated with [employer] dictation software. It may contain incorrect words, spelling, and punctuation that were not noted in review of the chart prior to signing ED Disposition - Plan for ED Patient: Referrals: Choco Burgos DO [Primary Care Provider] -
[2020-05-07] MEDS: 0.9% Normal Saline 1,000 ML 150 ML IV (20:27)
[2020-05-07] MEDS: Aspirin 81 MG TAB.CHEW 324 MG PO (20:28)
[2020-05-07 20:56] LABS: Absolute Lymphocyte Count 0.56 X10^3/uL (0.83-4.51); Absolute Neutrophil Count 5.8 X10^3/uL (2.0-7.7); Basophil# 0.01 X10^3/uL; Basophil% 0.1 % (0-1); Hematocrit 39.1 % (40-54); Hemoglobin 12.7 g/dL (13.0-16.5); Lymphocyte # 0.56 X10^3/ul (4.0); Lymphocyte % 8.2 % (19-41); Mean Corp Hgb Conc 32.5 g/dL (32-36); Mean Corpuscular Volume 104.8 fL (80-94); Mean Platelet Vol. 9.4 fl (6.2-12.0); Monocyte# 0.39 X10^3/uL; Monocyte% 5.7 % (0-10); NRBC Flagged by Analyzer 0 % (0-5); Neutrophil # 5.83 X10^3/uL (2.7-7.7); Neutrophil % 85.9 % (47-70); POSITIVE DIFFERENTIAL YES; Platelet Count 258 K/mm3 (150-450); RBC Distribution Width CV 13.6 % (11.6-14.6); RBC Distribution Width SD 52.4 fl (35.1-43.9); Red Blood Count 3.73 M/mm3 (4.6-6.2); White Blood Count 6.8 K/mm3 (4.4-11.0)
[2020-05-07 20:57] LABS: Differential Indicated SCAN CRITERIA MET
[2020-05-07 21:15] LABS: Anion Gap 5 (5-15); BUN 27 mg/dL (7-18); BUN/Creat Ratio 29.6 RATIO (10-20); Calcium,Total 8.2 mg/dL (8.5-10.1); Chloride 106 mmol/L (98-107); Creatinine, Serum 0.91 mg/dL (0.70-1.30); EST Glomerular Filtration Rate 85 mL/min (>60); Est Glom Filt Rate - Afr Amer 103 mL/min (>60); Estimated Creatinine Clearance 63.68 ml/min; Glucose 131 mg/dL (74-106); Potassium 3.7 mmol/L (3.5-5.1); Sodium Level 138 mmol/L (136-145)
[2020-05-07 22:19] VITALS: RESP 18
--- NOTE | 2020-05-07 22:23 | ED.DEP ---
ED Disposition - Plan for ED Patient: Instructions: Coronavirus Disease 2019 (COVID-19): Caring for Yourself or Others, Coronavirus Disease 2019 (COVID-19): Overview, ED Upper Resp Infec Abx Tx Prescriptions: Levofloxacin [Levaquin] 750 mg PO DAILY #4 tab Prescription Printed Referrals: Choco Burgos DO [Primary Care Provider] - 5-7 Days
[2020-05-07] MEDS: levoFLOXacin 750 MG Tablet PO (22:38)
[2020-05-07] MEDS: dexAMETHasone 10 MG/ML Vial IV (22:39)
[2020-05-07 22:44] VITALS: BP 134/65; PULSE 68; RESP 18; O2SAT 96
== END 2020-05-07 23:01 | disposition home or self-care (01) ==
LOC: ED 20:51
PROVIDERS: Emergency Provider Emergency Medicine; PCP Family Medicine
DX: R06.00 Dyspnea, unspecified (principal); J12.9 Viral pneumonia, unspecified
CPT/HCPCS: 71275; 80048; 84484; 85025; 87426; 87635; 93005; 96361; 96374; 99284; J7030; Q9967; A4216; U0003

== ENCOUNTER 2020-05-09 13:37 | Inpatient (IN) | payer MEDICARE, OTHER, SELFPAY ==
[2020-05-09] VITALS (10 sets, daily range): BP systolic 90–128; BP diastolic 52–61; PULSE 56–78; RESP 16–28; TEMP 36.8–38.7; O2SAT 92–97; BMI 29.8; BMI 28.1; BMI 28.2
--- NOTE | 2020-05-09 14:05 | RAD_ITS ---
STUDY: X-RAY CHEST REASON FOR EXAM: Male, 79 years old. Increased shortness of breath, fever, cough TECHNIQUE: Single AP portable view of the chest. COMPARISON: None. FINDINGS: EKG electrodes are seen. Infiltration is seen in the right upper lobe as well as at in the left upper lobe and both lower lobes. This is most pronounced in the right upper lobe. There is no demonstrated pleural abnormality. Normal size heart. Normal mediastinum and talita. Normal visualized pulmonary arteries. There is atherosclerotic tortuosity of the aortic arch and descending thoracic aorta. There are diffuse degenerative changes of the visualized thoracic spine. Metallic anchors are seen overlying the right humeral head. There is no demonstrated abnormality of the visualized soft tissue structures of the upper abdomen. RAD/Chest 1 View (Portable) IMPRESSION: Bilateral infiltrates more prominent in the right upper lobe. Pneumonia related to COVID should be ruled out. Electronically Signed: Destin Herring, at 14:27 EST , Service support ,
[2020-05-09 14:15] LABS: Absolute Lymphocyte Count 0.77 X10^3/uL (0.83-4.51); Absolute Neutrophil Count 12.4 X10^3/uL (2.0-7.7); Basophil# 0.01 X10^3/uL; Basophil% 0.1 % (0-1); Hematocrit 39.1 % (40-54); Hemoglobin 13.1 g/dL (13.0-16.5); Lymphocyte # 0.77 X10^3/ul (4.0); Lymphocyte % 5.7 % (19-41); Mean Corp Hgb Conc 33.5 g/dL (32-36); Mean Corpuscular Hgb 34.6 pg (27.0-32.0); Mean Corpuscular Volume 103.2 fL (80-94); Mean Platelet Vol. 9.7 fl (6.2-12.0); Monocyte# 0.37 X10^3/uL; Monocyte% 2.7 % (0-10); NRBC Flagged by Analyzer 0 % (0-5); Neutrophil # 12.35 X10^3/uL (2.7-7.7); Neutrophil % 90.8 % (47-70); Platelet Count 353 K/mm3 (150-450); RBC Distribution Width CV 13.5 % (11.6-14.6); RBC Distribution Width SD 51.6 fl (35.1-43.9); Red Blood Count 3.79 M/mm3 (4.6-6.2); White Blood Count 13.6 K/mm3 (4.4-11.0)
--- NOTE | 2020-05-09 14:16 | ED.DCSUM_ITS ---
- ER Visit Summary Date of Service: 05/09/20 Chief Complaint: Shortness of breath History of Present Illness: The patient is a [address] Burgos. He reports his shortness of breath began approximately 1 week ago. He states its been sporadic and increased overnight. It was severe overnight. It is mild currently. He reports that he has a tickle in his throat that makes him cough and it is nonproductive. He has a fever that began today. He denies sick contacts. He does wear a mask. Patient fractured his left ankle 12 days ago. He was seen in the emergency department 2 days ago and had a CT of the chest that showed no PE. CT was concerning for Covid. Test was sent and has not returned. Physical Examination: Vitals: 101.6, 06/29/1956, 78, 28, 92% on room air which is not hypoxic. General: Well-nourished and well-developed. Head: Normocephalic atraumatic. Neck: Supple, no lymphadenopathy. No JVD. Nontender. Cardiovascular: Regular rate and rhythm. No murmurs. Respiratory: No respiratory distress. Diffuse crackles bilaterally. Abdominal: Soft, nontender, nondistended, normal bowel sounds. No guarding, rebound, or peritoneal signs. Back: Nontender. Extremities: Nontender, no edema. Short leg splint on the left. He has normal sensation to light touch and less than 2-second cap refill in his toes. Skin: Normal color, no rash. Neurologic: Alert and oriented ?3. Cranial nerves II through XII are intact. Normal strength and sensation. Psych: Normal affect. Test Results: CBC shows a white count of 13.6, hematocrit 39.1, segmented neutrophils 91, lymphocytes of 6. Chem-7 shows a BUN of 22 and calcium of 8.2. LFTs show an albumin of 2.9. Fibrinogen 760. Lactic acid is 2.1. CRP is 100. Procalcitonin 0.12. Covid rapid antigen is negative. Clinical Impression(s) from Imaging Studies Chest X-Ray 05/09/20 14:05 IMPRESSION: Bilateral infiltrates more prominent in the right upper lobe. Pneumonia related to COVID should be ruled out. Electronically Signed: Destin Herring, at 14:27 EST , Service support , Emergency Department Course and Treatment: Patient had a CTA of his chest 2 days ago. This was not repeated. Patient had an IV placed. He was given dexamethasone IV and Tylenol p.o. patient is unable to ambulate. He reports that he has been hopping around with a walker at home and is so weak that he can no longer do that. He is on Levaquin already and was not given more antibiotics. Treatment Plan: In my opinion patient CT from 2 days ago and chest x-ray are consistent with Covid. He is already on Levaquin. Despite the fact that his test is negative he will be treated as Covid with false negative testing. He was discussed with Dr. Christine and will be admitted for further evaluation and treatment. Disposition: Admitted in improved condition. Impression: 1. COVID-19 infection. This note was generated with [employer] dictation software. It may contain incorrect words, spelling, and punctuation that were not noted in review of the chart prior to signing ED Disposition - Plan for ED Patient: Referrals: Choco Burgos DO [Primary Care Provider] -
[2020-05-09 14:25] LABS: Fibrinogen 760 mg/dl (203-444)
[2020-05-09 14:30] LABS: ALB/GLOB Ratio 0.7 RATIO (0.9-2.4); AST(SGOT) 27 U/L (15-37); Alanine Aminotransfer ALT/SGPT 27 U/L (16-61); Albumin, Serum 2.9 g/dL (3.2-5.0); Alkaline Phosphatase 71 U/L (45-117); Anion Gap 6 (5-15); BUN 22 mg/dL (7-18); BUN/Creat Ratio 22.1 RATIO (10-20); CPK Total, Creatine Kinase 46 U/L (39-308); Calcium,Total 8.2 mg/dL (8.5-10.1); Chloride 106 mmol/L (98-107); EST Glomerular Filtration Rate 77 mL/min (>60); Est Glom Filt Rate - Afr Amer 93 mL/min (>60); Estimated Creatinine Clearance 57.95 ml/min; Globulin 4.1 g/dL (2.2-4.2); Glucose 93 mg/dL (74-106); Potassium 3.7 mmol/L (3.5-5.1); Sodium Level 140 mmol/L (136-145)
[2020-05-09 14:33] LABS: Procalcitonin 0.12 ng/mL (0.00-0.09)
[2020-05-09 14:34] LABS: Lactic Acid 2.1 mmol/L (0.4-1.9)
[2020-05-09] MEDS: Acetaminophen 500 MG Tablet 1000 MG PO (14:44)
[2020-05-09] MEDS: dexAMETHasone 4 MG/ML Vial 6 MG IV (14:45)
[2020-05-09] MEDS: levoFLOXacin 750 MG Tablet PO (17:06)
[2020-05-09 18:10] LABS: Reflex Lactate? Y
[2020-05-09 19:29] LABS: Alkaline Phosphatase 70 U/L (45-117)
--- NOTE | 2020-05-09 19:48 | PCM.HP.STD ---
Problem List (1) Shortness of breath Status: Acute (2) Nonproductive cough Status: Acute History of Present Illness Date of Admission: 05/09/20 Chief Complaint: Increased shortness of breath, nonproductive cough The patient is a 79 year old M who was seen in the emergency room at [facility] with a chief complaint of increasing shortness of breath over the past week. He was seen in the emergency room on 05/07/2020 with complaints of some shortness of breath and underwent a work-up which included a Covid PCR test (this is not resulted yet) and a CTA of the chest which showed no evidence of pulmonary emboli. He had been placed on dexamethasone on discharge to home and Levaquin but the patient did not get either 1 of these failed-he felt that the side effects did not warrant taking the medication. Patient suffered a broken left ankle on 04/27/2020 and has been in a cast since that time and is awaiting surgery soon. Patient complains of a nonproductive cough, he did not complain of any chills to this examiner but he is running a temperature in the emergency room of 101.6. He did complain about running a temperature starting today. In the emergency room included labs which showed a white blood cell count of 13.6, hemoglobin was normal, fibrinogen was elevated at 760, BUN was 22, lactic acid was 2.1, C-reactive protein was 100, and procalcitonin was 0.12. Patient's rapid COVID-19 antigen was negative. Patient required supplemental oxygen to maintain his pulse ox above 94%. Patient will be admitted to [place] [address] for presumed Covid 19 pneumonia, he will be placed on remdesivir and dexamethasone. I had a brief discussion with infectious diseases by phone today and Dr. Enriquez recommended that based on the information I provided him, the patient be treated for probable Covid pneumonia. I will obtain a urine antigen for strep and Legionella. Past Medical History Past Medical History (Chronic Problems): Chronic Problems Peptic ulcer with hemorrhage (Chronic) Allergies No Known Allergies Allergy (Verified 04/27/20 13:36) Home Medications: Ambulatory Orders Medication Instructions Recorded Celecoxib [Celebrex] 200 mg PO DAILY 04/27/20 Hydrocodone/Acetaminophen 1 tab PO TID PRN PRN 04/27/20 [Hydrocodone-Acetamin 10-325 mg] Zolpidem Tartrate [Ambien 5 mg PO QHS PRN PRN 04/27/20 (Generic)] Allopurinol 300 mg PO DAILY 05/09/20 Levofloxacin [Levaquin] 750 mg PO DAILY 05/09/20 Surgical History: no surgical history Psychiatric History: No pertinent psych hx Lives: Alone Smoking Status: Never smoker Tobacco Use: Non-smoker Alcohol: None Drugs: None - *Family History Maternal History Items: No pertinent history Paternal History Items: No pertinent history Review of Systems Constitutional: Reports: Fever, Weakness, Fatigue. Denies: Anorexia, Chills, Night Sweats, Weight Change Eyes: Denies: Conjunctivae Inflammation, Double vision, Drainage HEENT: Denies: Difficulty Swallowing, Dysphasia, Ear Pain, Eye Pain, Hearing Changes, Nasal bleeding, Nasal Congestion, Post Nasal Drip Cardiovascular: Denies: Chest Pain, Claudication, Chest Pressure, Chest Tightness, Edema, Heaviness, Palpitations Respiratory: Reports: Shortness of Breath, Shortness of breath at rest, Shortness of breath upon exertion. Denies: Cough, Hemoptysis, Pleuritic Pain, Sputum production, Wheezing Gastrointestinal: Denies: Abdominal Pain, Constipation, Diarrhea, Hematemesis, Hematochezia, Nausea, Melena, Vomiting Genitourinary: Denies: Dysuria, Frequency, Hematuria, Hesitancy, Nocturia, Retention, Urgency Musculoskeletal: Denies: Back Pain, Foot Pain, Hand Pain, Joint Pain, Joint stiffness, Joint swelling, Joint Tenderness, Leg Pain Skin: Denies: Dryness, Jaundice, Pruritis, Rash Neurological: Denies: Blurred vision, Double vision, Slurred speech, Difficulty swallowing, Focal weakness, Headaches, Incoordination, Numbness, Tingling Psychiatric: Denies: Anxiety, Depression, Homicidal Ideations, Suicidal Ideations Endocrine: Denies: Change in Body Habitus, Heat/ Cold Intolerance, Polydipsia, Polyuria Hematologic/ Lymphatic: Denies: Adenopathy, Anemia, Easy Bruising, Easy Bleeding, Petechiae, Purpura VTE Information - Inpt Only VTE Present on Admission: No VTE Mechan Device Prophylaxis: None VTE Pharm Prophylaxis ordered?: Yes - Physical Exam Vitals/I&O's: Vital Signs Temp Pulse Resp BP Pulse Ox 98.6 F 59 L 18 103/56 L 97 05/09/20 17:40 12/04/20 17:40 05/09/20 17:40 05/09/20 17:40 05/09/20 17:40 Oxygen Flow Rate (L/min) 2 Oxygen Delivery Method Nasal Cannula Weight: 84 kg Body Mass Index (BMI) 28.1 General: Alert, Oriented x3, Cooperative, No apparent distress, Well developed, Well nourished HEENT: Atraumatic, PERRLA, EOMI, Normocephalic Oral: Moist Mucosa Neck: Supple, No JVD, Negative Carotid Bruits, Trachea Midline, Thyroid Normal Size and Texture Lungs: No rhonchi, No wheeze, No rales, Diminished Cardiovascular: Regular rate, Regular Rhythm, Normal S1, Normal S2, No murmurs, PMI Normal, No rub noted, No Gallop Abdomen: Bowel Sounds Present, Soft, Non Tender, Non-Distended, No hernias noted Extremities: No clubbing, Capillary Refill Less than 3 Seconds, - - There is a cast present over the patient's left lower leg encompassing the left ankle Skin: No rashes, No breakdown Neurological: Cranial nerves II-XII grossly intact, Neuro grossly intact, Sensory exam intact to light touch and pain, Coordination normal Psych/Mental Status: Normal Affect, Appropriate, Alert and oriented to time, place, person, mood and affect Microbiology Past 72 Hours 05/09/20 14:50 Mucosa - Nose SARS-CoV-2 Antigen (Rapid) - Final Laboratory Results 05/09/20 13:45: WBC 13.6 H, RBC 3.79 L, Hgb 13.1, Hct 39.1 L, MCV 103.2 H, MCH 34.6 H, MCHC 33.5, RDW Std Deviation 51.6 H, RDW Coeff of Bola 13.5, Plt Count 353, MPV 9.7, Immature Gran % (Auto) 0.700, Neut % (Auto) 90.8 H, Lymph % (Auto) 5.7 L, [place] % (Auto) 2.7, Eos % (Auto) 0.0, Baso % (Auto) 0.1, Absolute Neuts (auto) 12.4 H, Absolute Lymphs (auto) 0.77 L, Nucleated RBC % 0 05/09/20 13:45: Fibrinogen 760 H 05/09/20 13:45: Sodium 140, Potassium 3.7, Chloride 106, Carbon Dioxide 28.0, Anion Gap 6, BUN 22 H, Creatinine 1.00, Estim Creat Clear Calc 57.95, Est GFR (MDRD) Af Amer 93, Est GFR (MDRD) Non-Af 77, BUN/Creatinine Ratio 22.1 H, Glucose 93, Calcium 8.2 L, Total Bilirubin 0.40, AST 27, ALT 27, Alkaline Phosphatase 71, Total Creatine Kinase 46, C-React Prot Ext Range 100.00 H, Total Protein 7.0, Albumin 2.9 L, Globulin 4.1, Albumin/Globulin Ratio 0.7 L 05/09/20 13:45: Lactic Acid 2.1 H* 05/09/20 13:45: Procalcitonin 0.12 H 05/09/20 18:51: Lactic Acid Pending 05/09/20 18:51: Alkaline Phosphatase 70 Current Medications Acetaminophen (Acetaminophen 325 Mg Tablet) 650 mg PO Q6H PRN PRN PRN Reason: Pain Score 1-10/Temp > 100.7 F Allopurinol (Allopurinol 300 Mg Tablet) 300 mg PO DAILY [facility] Celecoxib (Celecoxib 200 Mg Capsule) 200 mg PO DAILY [facility] Dexamethasone (Dexamethasone 4 Mg Tablet) 6 mg PO DAILY [facility] Enoxaparin Sodium (Enoxaparin 40 Mg/0.4 Ml Syringe) 40 mg SC BID [place] Remdesivir 200 mg/ Sodium (Chloride) 250 mls @ 125 mls/hr IV X1 ONE Stop: 05/09/20 21:59 Remdesivir 100 mg/ Sodium (Chloride) 250 mls @ 125 mls/hr IV DAILY@2200 [place] Stop: 05/13/20 23:59 Sodium Chloride () 250 mls @ 15 mls/hr IV .[id number] PRN PRN Reason: Saline Flush Sodium Chloride () 250 mls @ 15 mls/hr IV .[id number] PRN PRN Reason: Additional IVPB Infusion Ondansetron HCl (Ondansetron 4 Mg/2 Ml Vial) 4 mg IV Q8H PRN PRN PRN Reason: NAUSEA/VOMITING Sodium Chloride (0.9% Saline Lock 10 Ml Syringe) 10 - 40 ml IV UD PRN PRN Reason: SALINE FLUSH Zolpidem Tartrate (Zolpidem Tartrate 5 Mg Tablet) 5 mg PO QHS PRN PRN PRN Reason: SLEEP Assessment/Plan All Active Problems History of gout (Acute) Shortness of breath (Acute) Nonproductive cough (Acute) #1 COVID-19 pneumonia-patient's PCR is pending at this time-it was obtained 2 days ago. Patient will be treated for probable COVID-19 pneumonia, he will be given dexamethasone and remdesivir. #2 hypoxia secondary to #1-patient's pulse ox will be monitored #3 recent left ankle fracture (posterior malleolar fracture, Lopez C distal fibular fracture, tibiotalar subluxation with reduction and PT see the patient Inpatient E&M: 53686 Init Hosp L3
[2020-05-09 20:08] LABS: Lactic Acid 3.2 mmol/L (0.4-1.9)
[2020-05-09] MEDS: Enoxaparin 40 MG/0.4 ML Syringe SC (20:16)
[2020-05-10] MEDS: BENZOCAINE/MENTHOL 1 LOZENGE MUCOUS MEM (02:36)
[2020-05-10 02:37] VITALS: BP 129/70; PULSE 60; RESP 18; TEMP 36.7; O2SAT 97
[2020-05-10] MEDS: HYDROcodone Bitartrate/Apap 5/325 Tablet PO ×4 (03:22→23:44)
[2020-05-10 07:11] LABS: Absolute Lymphocyte Count 0.57 X10^3/uL (0.83-4.51); Absolute Neutrophil Count 12.4 X10^3/uL (2.0-7.7); Basophil# 0.01 X10^3/uL; Basophil% 0.1 % (0-1); Hematocrit 35.9 % (40-54); Hemoglobin 11.8 g/dL (13.0-16.5); Lymphocyte # 0.57 X10^3/ul (4.0); Lymphocyte % 4.3 % (19-41); Mean Corp Hgb Conc 32.9 g/dL (32-36); Mean Corpuscular Volume 103.5 fL (80-94); Mean Platelet Vol. 9.8 fl (6.2-12.0); Monocyte# 0.27 X10^3/uL; NRBC Flagged by Analyzer 0 % (0-5); Neutrophil # 12.37 X10^3/uL (2.7-7.7); POSITIVE DIFFERENTIAL YES; Platelet Count 304 K/mm3 (150-450); RBC Distribution Width CV 13.9 % (11.6-14.6); RBC Distribution Width SD 53.6 fl (35.1-43.9); Red Blood Count 3.47 M/mm3 (4.6-6.2); White Blood Count 13.3 K/mm3 (4.4-11.0)
[2020-05-10 07:18] LABS: Differential Indicated SCAN CRITERIA MET
[2020-05-10 07:45] LABS: ALB/GLOB Ratio 0.6 RATIO (0.9-2.4); AST(SGOT) 28 U/L (15-37); Alanine Aminotransfer ALT/SGPT 27 U/L (16-61); Albumin, Serum 2.3 g/dL (3.2-5.0); Alkaline Phosphatase 64 U/L (45-117); Anion Gap 6 (5-15); BUN 28 mg/dL (7-18); BUN/Creat Ratio 33.2 RATIO (10-20); Chloride 105 mmol/L (98-107); Creatinine, Serum 0.84 mg/dL (0.70-1.30); EST Glomerular Filtration Rate 93 mL/min (>60); Est Glom Filt Rate - Afr Amer 113 mL/min (>60); Estimated Creatinine Clearance 68.99 ml/min; Glucose 125 mg/dL (74-106); Protein, Total 6.3 g/dL (6.4-8.2); Sodium Level 137 mmol/L (136-145)
[2020-05-10 07:56] LABS: Differential Comment SCANNED
[2020-05-10 09:00] VITALS: BP 116/70; PULSE 57; RESP 16; TEMP 36.9; O2SAT 92
[2020-05-10] MEDS: Allopurinol 300 MG Tablet PO (09:05)
[2020-05-10] MEDS: Enoxaparin 40 MG/0.4 ML Syringe SC ×2 (09:06→21:25)
[2020-05-10] MEDS: dexAMETHasone 4 MG Tablet 6 MG PO (09:06)
[2020-05-10] MEDS: Celecoxib 200 MG Capsule PO (09:06)
--- NOTE | 2020-05-10 13:10 | CASEMGMT ---
RN CM called patient in room for initial transition planning/care coordination assessment. RN LOIS introduced self and role at [facility]. Patient alert and oriented. Patient willing to participate in assessment and is able to answer all questions appropriately. Care providers, pharmacy, and demographics verified. Patient wishes to discharge home, denies need for home health at this time. Patient states he has no further needs or concerns at this time. CM to follow for discharge planning needs that may arise. PCP: Yordan Specialists: none Preferred Pharmacy: [facility] Insurance: [employer] Prescription Benefit: yes Living Will/HPOA: yes, Anna Higuera HPOA LNOK: Living Arrangements: patient lives with in a 2 story house with possible bed and bath on first floor. Patient has 3 steps and railing to enter the home. Patient states he was independent at home. Transportation: DME/HHC: Patient denies DME or previous HHC. DME reviewed with patient and agreeable to [employer] for possible home oxygen at discharge. Disposition Plan: Patient to discharge home with family support and follow-up plans in place. Nieves VASQUES, RN, CM
--- NOTE | 2020-05-10 13:15 | CASEMGMT ---
RN CM called patient in room for initial transition planning/care coordination assessment. RN LOIS introduced self and role at [facility]. Patient alert and oriented. Patient willing to participate in assessment and is able to answer all questions appropriately. Care providers, pharmacy, and demographics verified. Patient wishes to discharge home, denies need for home health at this time. Patient states he has no further needs or concerns at this time. CM to follow for discharge planning needs that may arise. PCP: Aubrey Specialists: none Preferred Pharmacy: [facility] Prescription Benefit: yes Living Will/HPOA: yes, daughter Zohreh Magaña HPOA LNOK: daughter Living Arrangements: Patient lives alone in a 2 story home with bed and bath on first floor. No steps to enter the home. Patient states he is independent at home but has had family staying with him since he broke his leg. Transportation: daughter DME/HHC: Patient state he has walker and crutches at home. DME reviewed with patient and would like [employer] at discharge for possible home oxygen Disposition Plan: Patient to discharge home with family support and follow-up plans in place. Nieves VASQUES, RN, CM
--- NOTE | 2020-05-10 13:59 | NT.THERAPY_ITS ---
Nutrition Therapy Report - History Nutrition Services has been consulted to:: Manage nutrient details of diet order Current diet / nutrition support order:: Regular general w/ Ensure Enlive - Anthropometric Measurements Height:: 5 ft 8 in Weight:: 84 kg Body Mass Index (BMI):: 28.1 - Relevant Labs Relevant Labs:: WBC 13.3 K/mm3 (4.4-11.0) H 05/10/20 05:40 RBC 3.47 M/mm3 (4.6-6.2) L 05/10/20 05:40 Hgb 11.8 g/dL (13.0-16.5) L 05/10/20 05:40 Hct 35.9 % (40-54) L 05/10/20 05:40 MCV 103.5 fL (80-94) H 05/10/20 05:40 MCH 34.0 pg (27.0-32.0) H 05/10/20 05:40 RDW Std Deviation 53.6 fl (35.1-43.9) H 05/10/20 05:40 Neut % (Auto) 93.0 % (47-70) H 05/10/20 05:40 Lymph % (Auto) 4.3 % (19-41) L 05/10/20 05:40 Absolute Neuts (auto) 12.4 X10^3/uL (2.0-7.7) H 05/10/20 05:40 Absolute Lymphs (auto) 0.57 X10^3/uL (0.83-4.51) L 05/10/20 05:40 Fibrinogen 760 mg/dl (203-444) H 05/09/20 13:45 BUN 28 mg/dL (7-18) H 05/10/20 05:40 BUN/Creatinine Ratio 33.2 RATIO (10-20) H 05/10/20 05:40 Glucose 125 mg/dL (74-106) H 05/10/20 05:40 Lactic Acid 3.2 mmol/L (0.4-1.9) H* 05/09/20 18:51 Calcium 8.0 mg/dL (8.5-10.1) L 05/10/20 05:40 C-React Prot Ext Range 100.00 mg/L (0.0-3.0) H 12/04/20 13:45 Total Protein 6.3 g/dL (6.4-8.2) L 05/10/20 05:40 Albumin 2.3 g/dL (3.2-5.0) L 05/10/20 05:40 Albumin/Globulin Ratio 0.6 RATIO (0.9-2.4) L 05/10/20 05:40 Procalcitonin 0.12 ng/mL (0.00-0.09) H 05/09/20 13:45 - Assessment Food / Nutrition-Related History:: Talked to pt via telephone d/t Covid precautions. Pt states Regular diet at home and po intake poor x 1-2 wks. UBW: 88.451 kg - wt loss of 5.1% (sig for malnutrition in same time frame). Pt agreeable to ONS for increased nutrition if consumed. 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 [ End ] Nutrition education provided?: No - MNT Monitoring Further MNT monitoring and evaluation required?: Yes MNT Follow-up in:: 3-5 days - please call RD/LD if questions [phone]
[2020-05-10 14:01] VITALS: BMI 28.1
[2020-05-10 15:26] VITALS: BP 116/57; PULSE 73; RESP 18; TEMP 36.6; O2SAT 93
--- NOTE | 2020-05-10 16:43 | PCM.PROGNOTE ---
Patient Problems: Active and Suspected Problems Shortness of breath (Acute) Nonproductive cough (Acute) Subjective: Patient was seen and examined today, he is now on room air and his pulse ox is 93%. Patient does not complain of any shortness of breath, fevers, or chills. Patient's white blood cell count this morning was 13.3. Objective: General: Alert, Oriented x3, Cooperative, No apparent distress, Well developed, Well nourished HEENT: Atraumatic, PERRLA, EOMI, Normocephalic Oral: Moist Mucosa Neck: Supple, No JVD, Negative Carotid Bruits, Trachea Midline, Thyroid Normal Size and Texture Lungs: No rhonchi, No wheeze, No rales, Diminished Cardiovascular: Regular rate, Regular Rhythm, Normal S1, Normal S2, No murmurs, PMI Normal, No rub noted, No Gallop Abdomen: Bowel Sounds Present, Soft, Non Tender, Non-Distended, No hernias noted Extremities: No clubbing, Capillary Refill Less than 3 Seconds, - - There is a cast present over the patient's left lower leg encompassing the left ankle Skin: No rashes, No breakdown Neurological: Cranial nerves II-XII grossly intact, Neuro grossly intact, Sensory exam intact to light touch and pain, Coordination normal Psych/Mental Status: Normal Affect, Appropriate, Alert and oriented to time, place, person, mood and affect - Physical Exam Vitals/I&O's: Vital Signs Temp Pulse Resp BP Pulse Ox 97.9 F 73 18 116/57 L 93 05/10/20 15:26 05/10/20 15:26 05/10/20 15:26 05/10/20 15:26 05/10/20 15:26 Oxygen Flow Rate (L/min) 1 Oxygen Delivery Method Room Air Weight: 84 kg Body Mass Index (BMI) 28.1 Intake and Output for Last 24 Hours 05/08/20 05/09/20 05/10/20 23:59 23:59 23:59 Intake Total 250 / 250 460 / 460 Balance 250 / 250 460 / 460 Microbiology Past 72 Hours 05/09/20 23:20 Interface Orders Legionella Antigen - Final 05/09/20 23:20 Interface Orders Streptococcus pneumoniae Antigen (M - Final 05/09/20 14:50 Mucosa - Nose SARS-CoV-2 Antigen (Rapid) - Final Laboratory Results 05/09/20 18:51: Lactic Acid 3.2 H* 05/09/20 18:51: Alkaline Phosphatase 70 05/10/20 05:40: WBC 13.3 H, RBC 3.47 L, Hgb 11.8 L, Hct 35.9 L, MCV 103.5 H, MCH 34.0 H, MCHC 32.9, RDW Std Deviation 53.6 H, RDW Coeff of Bola 13.9, Plt Count 304, MPV 9.8, Immature Gran % (Auto) 0.600, Neut % (Auto) 93.0 H, Lymph % (Auto) 4.3 L, [place] % (Auto) 2.0, Eos % (Auto) 0.0, Baso % (Auto) 0.1, Absolute Neuts (auto) 12.4 H, Absolute Lymphs (auto) 0.57 L, Nucleated RBC % 0, Differential Comment SCANNED 05/10/20 05:40: Sodium 137, Potassium 4.0, Chloride 105, Carbon Dioxide 26.0, Anion Gap 6, BUN 28 H, Creatinine 0.84, Estim Creat Clear Calc 68.99, Est GFR (MDRD) Af Amer 113, Est GFR (MDRD) Non-Af 93, BUN/Creatinine Ratio 33.2 H, Glucose 125 H, Calcium 8.0 L, Total Bilirubin 0.40, AST 28, ALT 27, Alkaline Phosphatase 64, Total Protein 6.3 L, Albumin 2.3 L, Globulin 4.0, Albumin/Globulin Ratio 0.6 L Current Medications Acetaminophen (Acetaminophen 325 Mg Tablet) 650 mg PO Q6H PRN PRN PRN Reason: Pain Score 1-10/Temp > 100.7 F Hydrocodone Bitart/Acetaminophen (Hydrocodone Bitartrate/Apap 5/325 Tablet) 2 tablet PO Q6H PRN PRN PRN Reason: Pain Score 4-10 Allopurinol (Allopurinol 300 Mg Tablet) 300 mg PO DAILY [facility] Last Admin: 05/10/20 09:05 Dose: 300 mg Documented by: Celecoxib (Celecoxib 200 Mg Capsule) 200 mg PO DAILY [facility] Last Admin: 05/10/20 09:06 Dose: 200 mg Documented by: Dexamethasone (Dexamethasone 4 Mg Tablet) 6 mg PO DAILY [facility] Last Admin: 05/10/20 09:06 Dose: 6 mg Documented by: Enoxaparin Sodium (Enoxaparin 40 Mg/0.4 Ml Syringe) 40 mg SC BID [facility] Last Admin: 05/10/20 09:06 Dose: 40 mg Documented by: Remdesivir 100 mg/ Sodium (Chloride) 250 mls @ 125 mls/hr IV DAILY@2200 [place] Stop: 05/13/20 23:59 Sodium Chloride () 250 mls @ 15 mls/hr IV .[id number] PRN PRN Reason: Saline Flush Sodium Chloride () 250 mls @ 15 mls/hr IV .[id number] PRN PRN Reason: Additional IVPB Infusion Ondansetron HCl (Ondansetron 4 Mg/2 Ml Vial) 4 mg IV Q8H PRN PRN PRN Reason: NAUSEA/VOMITING Sodium Chloride (0.9% Saline Lock 10 Ml Syringe) 10 - 40 ml IV UD PRN PRN Reason: SALINE FLUSH Throat Lozenges (Benzocaine/Menthol 1 Lozenge) 1 lozenge MUCOUS MEM Q4H PRN PRN PRN Reason: sore throat Last Admin: 05/10/20 02:36 Dose: 1 lozenge Documented by: Zolpidem Tartrate (Zolpidem Tartrate 5 Mg Tablet) 5 mg PO QHS PRN PRN PRN Reason: SLEEP Medical Necessity - Tobacco Use Smoking Status: Never smoker Tobacco Use: Non-smoker Assessment/Plan All Active Problems History of gout (Resolved) Shortness of breath (Acute) Nonproductive cough (Acute) #1 COVID-19 pneumonia-patient's PCR is pending at this time-it was obtained 3 days ago. Patient will be treated for probable COVID-19 pneumonia-continue present medications #2 hypoxia secondary to #1-patient's pulse ox will be monitored, patient is currently on room air #3 recent left ankle fracture (posterior malleolar fracture, Lopez C distal fibular fracture, tibiotalar subluxation with reduction and PT see the patient Inpatient E&M: 71741 Subs Hosp L2
[2020-05-10 21:20] VITALS: BP 133/61; PULSE 59; RESP 16; TEMP 36.8; O2SAT 93
[2020-05-10] MEDS: 0.9% Saline Lock 10 ML Syringe IV (22:27)
[2020-05-10 23:00] VITALS: O2SAT 93
[2020-05-11] VITALS (8 sets, daily range): BP systolic 119–142; BP diastolic 59–75; PULSE 49–63; RESP 16–28; TEMP 36.6–36.8; O2SAT 91–97
--- NOTE | 2020-05-11 07:52 | NURSING ---
Pt called for assistance in room, states he feels like passing out. Also felt like he had a fever. Pts face is bright red. Denies chills. Vitals taken, see intervention. spo2 was 89% and respirations 28min. this nurse applied o2 at 2L [place] and spo2 91%. Pt c/o what feels like 6/10 pressure in his head and also describes what he is feeling as an allergic reaction. This nurse going to text hospitalist to come see pt.
--- NOTE | 2020-05-11 07:57 | NURSING ---
Dr. Christine in room with pt updated on his complaints of pressure to head, feelings of allergic reaction.
[2020-05-11] MEDS: dexAMETHasone 4 MG Tablet 6 MG PO (08:06)
[2020-05-11] MEDS: HYDROcodone Bitartrate/Apap 5/325 Tablet PO ×2 (08:07→16:29)
[2020-05-11] MEDS: Enoxaparin 40 MG/0.4 ML Syringe SC ×2 (08:07→22:00)
[2020-05-11] MEDS: Allopurinol 300 MG Tablet PO (08:07)
[2020-05-11] MEDS: Celecoxib 200 MG Capsule PO (08:07)
--- NOTE | 2020-05-11 08:40 | PCM.PROGNOTE ---
Patient Problems: Active and Suspected Problems Shortness of breath (Acute) Nonproductive cough (Acute) Subjective: Patient was seen and examined today, he is requiring low-flow nasal cannula oxygen to maintain his pulse ox above 93%. Patient's PCR for COVID-19 that was performed on 05/07/2020 was negative. Objective: General: Alert, Oriented x3, Cooperative, No apparent distress, Well developed, Well nourished HEENT: Atraumatic, PERRLA, EOMI, Normocephalic Oral: Moist Mucosa Neck: Supple, No JVD, Negative Carotid Bruits, Trachea Midline, Thyroid Normal Size and Texture Lungs: No rhonchi, No wheeze, No rales, Diminished Cardiovascular: Regular rate, Regular Rhythm, Normal S1, Normal S2, No murmurs, PMI Normal, No rub noted, No Gallop Abdomen: Bowel Sounds Present, Soft, Non Tender, Non-Distended, No hernias noted Extremities: No clubbing, Capillary Refill Less than 3 Seconds, - - There is a cast present over the patient's left lower leg encompassing the left ankle Skin: No rashes, No breakdown Neurological: Cranial nerves II-XII grossly intact, Neuro grossly intact, Sensory exam intact to light touch and pain, Coordination normal Psych/Mental Status: Normal Affect, Appropriate, Alert and oriented to time, place, person, mood and affect - Physical Exam Vitals/I&O's: Vital Signs Temp Pulse Resp BP Pulse Ox 97.9 F 54 L 28 H 142/75 H 91 05/11/20 07:55 05/11/20 07:55 05/11/20 07:55 05/11/20 07:55 05/11/20 07:55 Oxygen Flow Rate (L/min) 2 Oxygen Delivery Method Nasal Cannula Weight: 84 kg Body Mass Index (BMI) 28.1 Intake and Output for Last 24 Hours 05/09/20 05/10/20 05/11/20 23:59 23:59 23:59 Intake Total 250 / 250 910 / 1360 1100 / 1100 Output Total 500 / 500 375 / 375 Balance 250 / 250 410 / 860 725 / 725 Microbiology Past 72 Hours 05/09/20 23:20 Interface Orders Legionella Antigen - Final 05/09/20 23:20 Interface Orders Streptococcus pneumoniae Antigen (M - Final 05/09/20 14:50 Mucosa - Nose SARS-CoV-2 Antigen (Rapid) - Final Current Medications Acetaminophen (Acetaminophen 325 Mg Tablet) 650 mg PO Q6H PRN PRN PRN Reason: Pain Score 1-10/Temp > 100.7 F Hydrocodone Bitart/Acetaminophen (Hydrocodone Bitartrate/Apap 5/325 Tablet) 2 tablet PO Q6H PRN PRN PRN Reason: Pain Score 4-10 Last Admin: 05/11/20 08:07 Dose: 2 tablet Documented by: Allopurinol (Allopurinol 300 Mg Tablet) 300 mg PO DAILY [facility] Last Admin: 05/11/20 08:07 Dose: 300 mg Documented by: Celecoxib (Celecoxib 200 Mg Capsule) 200 mg PO DAILY [facility] Last Admin: 05/11/20 08:07 Dose: 200 mg Documented by: Dexamethasone (Dexamethasone 4 Mg Tablet) 6 mg PO DAILY [facility] Last Admin: 05/11/20 08:06 Dose: 6 mg Documented by: Enoxaparin Sodium (Enoxaparin 40 Mg/0.4 Ml Syringe) 40 mg SC BID [facility] Last Admin: 05/11/20 08:07 Dose: 40 mg Documented by: Remdesivir 100 mg/ Sodium (Chloride) 250 mls @ 125 mls/hr IV DAILY@2200 [facility] Stop: 05/13/20 23:59 Last Infusion: 05/11/20 01:32 Dose: Infused Documented by: Sodium Chloride () 250 mls @ 15 mls/hr IV .[id number] PRN PRN Reason: Saline Flush Sodium Chloride () 250 mls @ 15 mls/hr IV .[id number] PRN PRN Reason: Additional IVPB Infusion Ondansetron HCl (Ondansetron 4 Mg/2 Ml Vial) 4 mg IV Q8H PRN PRN PRN Reason: NAUSEA/VOMITING Sodium Chloride (0.9% Saline Lock 10 Ml Syringe) 10 - 40 ml IV UD PRN PRN Reason: SALINE FLUSH Last Admin: 05/10/20 22:27 Dose: 10 ml Documented by: Throat Lozenges (Benzocaine/Menthol 1 Lozenge) 1 lozenge MUCOUS MEM Q4H PRN PRN PRN Reason: sore throat Last Admin: 05/10/20 02:36 Dose: 1 lozenge Documented by: Zolpidem Tartrate (Zolpidem Tartrate 5 Mg Tablet) 5 mg PO QHS PRN PRN PRN Reason: SLEEP Medical Necessity - Tobacco Use Smoking Status: Never smoker Tobacco Use: Non-smoker Assessment/Plan All Active Problems History of gout (Resolved) Shortness of breath (Acute) Nonproductive cough (Acute) #1 COVID-19 pneumonia-patient's PCR was negative, I will repeat his chest x-ray today, it is still believed he may have COVID-19 despite the negative antigen and PCR test. #2 hypoxia secondary to #1-patient's pulse ox will be monitored, patient is currently on low-flow nasal cannula #3 recent left ankle fracture (posterior malleolar fracture, Lopez C distal fibular fracture, tibiotalar subluxation with reduction and PT see the patient Inpatient E&M: [id number] Subs Hosp L2
--- NOTE | 2020-05-11 08:45 | RAD_ITS ---
STUDY: X-RAY CHEST REASON FOR EXAM: Male, 79 years old. COVID PNEUMONIA TECHNIQUE: Single AP portable view of the chest. COMPARISON: 05/09/2020 FINDINGS: There is mild increased patchy airspace disease within the bilateral upper lobes and peripheral distribution compared to prior exam with mild increased interstitial markings. There is no demonstrated pleural abnormality. Normal size heart. Normal mediastinum and talita. Normal visualized pulmonary arteries. Normal visualized aortic arch and descending thoracic aorta. Normal visualized thoracic spine. Normal visualized ribs, clavicles, and shoulders. There is no demonstrated abnormality of the visualized soft tissue structures of the upper abdomen. RAD/Chest 1 View (Portable) IMPRESSION: Mildly increased density of patchy airspace disease and interstitial markings compared to previous. Electronically Signed: Abebe Zheng DO at 10:25 EST , Service support ,
[2020-05-11 09:35] LABS: Absolute Lymphocyte Count 0.81 X10^3/uL (0.83-4.51); Absolute Neutrophil Count 8.2 X10^3/uL (2.0-7.7); Basophil# 0.02 X10^3/uL; Basophil% 0.2 % (0-1); Hematocrit 38.3 % (40-54); Hemoglobin 12.7 g/dL (13.0-16.5); Lymphocyte # 0.81 X10^3/ul (4.0); Lymphocyte % 8.6 % (19-41); Mean Corp Hgb Conc 33.2 g/dL (32-36); Mean Corpuscular Hgb 34.7 pg (27.0-32.0); Mean Corpuscular Volume 104.6 fL (80-94); Mean Platelet Vol. 9.5 fl (6.2-12.0); Monocyte# 0.31 X10^3/uL; Monocyte% 3.3 % (0-10); NRBC Flagged by Analyzer 0 % (0-5); Neutrophil # 8.23 X10^3/uL (2.7-7.7); Neutrophil % 87.2 % (47-70); POSITIVE MORPHOLOGY YES; Platelet Count 355 K/mm3 (150-450); RBC Distribution Width CV 13.8 % (11.6-14.6); RBC Distribution Width SD 53.9 fl (35.1-43.9); Red Blood Count 3.66 M/mm3 (4.6-6.2); White Blood Count 9.4 K/mm3 (4.4-11.0)
[2020-05-11 09:50] LABS: Differential Indicated SCAN CRITERIA MET
[2020-05-11 10:06] LABS: ALB/GLOB Ratio 0.6 RATIO (0.9-2.4); AST(SGOT) 21 U/L (15-37); Alanine Aminotransfer ALT/SGPT 29 U/L (16-61); Albumin, Serum 2.5 g/dL (3.2-5.0); Alkaline Phosphatase 69 U/L (45-117); Anion Gap 6 (5-15); BUN 37 mg/dL (7-18); BUN/Creat Ratio 37.1 RATIO (10-20); Calcium,Total 8.2 mg/dL (8.5-10.1); Chloride 106 mmol/L (98-107); EST Glomerular Filtration Rate 77 mL/min (>60); Est Glom Filt Rate - Afr Amer 93 mL/min (>60); Estimated Creatinine Clearance 57.95 ml/min; Glucose 152 mg/dL (74-106); Potassium 4.7 mmol/L (3.5-5.1); Protein, Total 6.5 g/dL (6.4-8.2); Sodium Level 140 mmol/L (136-145)
[2020-05-11 10:09] LABS: Differential Comment SCANNED; Reactive Lymphocyte RARE
[2020-05-12] VITALS (13 sets, daily range): BP systolic 116–131; BP diastolic 58–76; PULSE 46–69; RESP 16–18; TEMP 36.6–36.8; O2SAT 93–96
[2020-05-12] MEDS: HYDROcodone Bitartrate/Apap 5/325 Tablet PO ×3 (00:40→18:49)
[2020-05-12 06:02] LABS: Absolute Lymphocyte Count 1.09 X10^3/uL (0.83-4.51); Absolute Neutrophil Count 7.6 X10^3/uL (2.0-7.7); Basophil# 0.02 X10^3/uL; Basophil% 0.2 % (0-1); Hematocrit 36.8 % (40-54); Hemoglobin 12.4 g/dL (13.0-16.5); Lymphocyte # 1.09 X10^3/ul (4.0); Lymphocyte % 11.7 % (19-41); Mean Corp Hgb Conc 33.7 g/dL (32-36); Mean Corpuscular Hgb 34.7 pg (27.0-32.0); Mean Corpuscular Volume 103.1 fL (80-94); Mean Platelet Vol. 10.2 fl (6.2-12.0); Monocyte# 0.55 X10^3/uL; Monocyte% 5.9 % (0-10); NRBC Flagged by Analyzer 0 % (0-5); Neutrophil # 7.56 X10^3/uL (2.7-7.7); Neutrophil % 81.1 % (47-70); POSITIVE MORPHOLOGY YES; Platelet Count 383 K/mm3 (150-450); RBC Distribution Width CV 13.6 % (11.6-14.6); RBC Distribution Width SD 51.8 fl (35.1-43.9); Red Blood Count 3.57 M/mm3 (4.6-6.2); White Blood Count 9.3 K/mm3 (4.4-11.0)
[2020-05-12 06:04] LABS: Differential Indicated SCAN CRITERIA MET
[2020-05-12 06:30] LABS: ALB/GLOB Ratio 0.6 RATIO (0.9-2.4); AST(SGOT) 23 U/L (15-37); Alanine Aminotransfer ALT/SGPT 31 U/L (16-61); Albumin, Serum 2.3 g/dL (3.2-5.0); Alkaline Phosphatase 66 U/L (45-117); Anion Gap 3 (5-15); BUN 41 mg/dL (7-18); BUN/Creat Ratio 47.6 RATIO (10-20); Calcium,Total 8.2 mg/dL (8.5-10.1); Chloride 107 mmol/L (98-107); Creatinine, Serum 0.86 mg/dL (0.70-1.30); EST Glomerular Filtration Rate 91 mL/min (>60); Est Glom Filt Rate - Afr Amer 110 mL/min (>60); Estimated Creatinine Clearance 67.38 ml/min; Globulin 3.6 g/dL (2.2-4.2); Glucose 117 mg/dL (74-106); Potassium 4.4 mmol/L (3.5-5.1); Protein, Total 5.9 g/dL (6.4-8.2); Sodium Level 139 mmol/L (136-145)
[2020-05-12] MEDS: Celecoxib 200 MG Capsule PO (08:46)
[2020-05-12] MEDS: Allopurinol 300 MG Tablet PO (08:47)
[2020-05-12] MEDS: dexAMETHasone 4 MG Tablet 6 MG PO (08:47)
[2020-05-12] MEDS: Enoxaparin 40 MG/0.4 ML Syringe SC ×2 (08:47→20:12)
--- NOTE | 2020-05-12 16:18 | PCM.HP.ID ---
Problem List (1) Shortness of breath Status: Acute Reason for Consult: hypoxia Consulted by: Dr. Christine History of Present Illness: The patient is a 79 year old M with recent fracture L foot, presented to ED 05/09 with 10-14 days cough, dyspnea, weakness. Came to ED 05/07, CTA neg for PE, covid pcr neg. Came back 05/09, covid Ag neg, hypoxic, lymphopenic. Started on dex and remdesivir, feeling better. Loves alone. Capo had covid about a month ago but he was not exposed. Full ROS performed and neg except as noted above. - Medical History Past Medical History (Chronic Problems): Chronic Problems Peptic ulcer with hemorrhage (Chronic) Allergies/Adverse Reactions: Allergies No Known Allergies Allergy (Verified 04/27/20 13:36) Home Medications: Ambulatory Orders Medication Instructions Recorded Celecoxib [Celebrex] 200 mg PO DAILY 04/27/20 Hydrocodone/Acetaminophen 1 tab PO TID PRN PRN 04/27/20 [Hydrocodone-Acetamin 10-325 mg] Zolpidem Tartrate [Ambien 5 mg PO QHS PRN PRN 04/27/20 (Generic)] Allopurinol 300 mg PO DAILY 05/09/20 Levofloxacin [Levaquin] 750 mg PO DAILY 05/09/20 - Social History Tobacco Use: non-smoker Vital Signs Temp Pulse Resp BP Pulse Ox 97.9 F 56 L 18 131/58 H 95 05/12/20 14:54 05/12/20 14:54 05/12/20 14:54 05/12/20 14:54 05/12/20 14:54 Oxygen Flow Rate (L/min) 4 Oxygen Delivery Method Nasal Cannula Weight: 84 kg Body Mass Index (BMI) 28.1 Microbiology Past 72 Hours 05/09/20 14:05 Blood Culture - Preliminary Blood Culture (Wb) - Anticubital Right No growth in 48 hours. 05/09/20 13:45 Blood Culture - Preliminary Blood Culture (Wb) - No Site/Description Given No growth in 48 hours. 05/09/20 23:20 Legionella Antigen - Final Interface Orders Streptococcus pneumoniae Antigen (M - Final 05/09/20 14:50 SARS-CoV-2 Antigen (Rapid) - Final Mucosa - Nose Laboratory Tests Past 24 Hrs 05/12/20 05/12/20 05:05 05:05 WBC 9.3 RBC 3.57 L Hgb 12.4 L Hct 36.8 L MCV 103.1 H MCH 34.7 H MCHC 33.7 RDW Std Deviation 51.8 H RDW Coeff of Bola 13.6 Plt Count 383 MPV 10.2 Immature Gran % (Auto) 1.100 H Neut % (Auto) 81.1 H Lymph % (Auto) 11.7 L Charlton % (Auto) 5.9 Eos % (Auto) 0.0 Baso % (Auto) 0.2 Absolute Neuts (auto) 7.6 Absolute Lymphs (auto) 1.09 Nucleated RBC % 0 Sodium 139 Potassium 4.4 Chloride 107 Carbon Dioxide 29.0 Anion Gap 3 L BUN 41 H Creatinine 0.86 Estim Creat Clear Calc 67.38 Est GFR (MDRD) Af Amer 110 Est GFR (MDRD) Non-Af 91 BUN/Creatinine Ratio 47.6 H Glucose 117 H Calcium 8.2 L Total Bilirubin 0.40 AST 23 ALT 31 Alkaline Phosphatase 66 Total Protein 5.9 L Albumin 2.3 L Globulin 3.6 Albumin/Globulin Ratio 0.6 L - Other Studies Radiology: [] reviewed Other Studies: [] Route of nutrition/ use of supplements: [] Nutritional Intake: [] IV Site: [] Murguia Catheter: [] - Physical Exam General: Alert, Oriented x3, Cooperative, No apparent distress HEENT: Atraumatic, PERRLA, EOMI Neck: Supple, No Nodes Lungs: Diminished Cardiovascular: Regular rate, Regular Rhythm Abdomen: Soft, Non Tender, Non-Distended Extremities: No edema Skin: No rashes IV Site: Peripheral, without redness Musculoskeletal: No Tenderness to Palpation of Joints or Extremities, - - L foot in cast Neurological: Cranial nerves II-XII grossly intact - Assessment/Plan Antibiotics: [] Assessment/Plan: [] Active and Suspected Problems Shortness of breath (Acute) Nonproductive cough (Acute) Hypoxia with suspected covid - lymphopenia on admission. At risk for dvt/PE due to foot in cast, but neg CTA of chest 05/07. Will check d-dimer. Is on lovenox 40mg bid. On dex, remdesivir. Covid pcr neg 05/07, covid Ag neg 05/09. Will check covid Abs. Had reported sx for about 2 weeks at this point. Will follow, thank you
--- NOTE | 2020-05-12 16:53 | CON.PCM_ITS ---
Problem List (1) Fracture of ankle, bimalleolar, left, closed Status: Acute Qualifiers: Encounter type: subsequent encounter Fracture healing: with routine healing Qualified Code(s): S82.842D - Displaced bimalleolar fracture of left lower leg, subsequent encounter for closed fracture with routine healing (2) Dislocation of left ankle joint Status: Acute Qualifiers: Encounter type: subsequent encounter Qualified Code(s): S93.05XD - Dislocation of left ankle joint, subsequent encounter Reason for Consult Date of Consultation: 05/12/20 Reason for Consultation: 1. Left ankle bimalleolar fracture. 2. Left ankle joint dislocation History of Present Illness: The patient is a 79 year old M who was seen in the emergency room at [facility] on 05/09/2020 with a chief complaint of increasing shortness of breath over the past week. He was seen in the emergency room on 05/07/2020 with complaints of some shortness of breath and underwent a work-up which included a Covid PCR test and a CTA of the chest which showed no evidence of pulmonary emboli. He had been placed on dexamethasone on discharge to home and Levaquin Patient complains of a nonproductive cough, he did not complain of any chills to this examiner but he is running a temperature in the emergency room of 101.6. He did complain about running a temperature starting today. Patient was admitted for possible Covid related pneumonia. Patient has been following with me in patient basis for a left ankle fracture that he suffered on April 27, 2020. Surgery was planned for May. Since the patient is admitted, I was consulted for further treatment of his left ankle fracture. Past Medical History Past Medical History (Chronic Problems): Chronic Problems Peptic ulcer with hemorrhage (Chronic) Allergies No Known Allergies Allergy (Verified 04/27/20 13:36) Home Medications: Ambulatory Orders Medication Instructions Recorded Celecoxib [Celebrex] 200 mg PO DAILY 04/27/20 Hydrocodone/Acetaminophen 1 tab PO TID PRN PRN 04/27/20 [Hydrocodone-Acetamin 10-325 mg] Zolpidem Tartrate [Ambien 5 mg PO QHS PRN PRN 04/27/20 (Generic)] Allopurinol 300 mg PO DAILY 05/09/20 Levofloxacin [Levaquin] 750 mg PO DAILY 05/09/20 Surgical History: no surgical history Psychiatric History: No pertinent psych hx Lives: Alone Smoking Status: Never smoker Tobacco Use: Non-smoker Alcohol: None Drugs: None - *Family History Maternal History Items: No pertinent history Paternal History Items: No pertinent history Review of Systems Constitutional: Denies: Anorexia, Chills, Fever, Night Sweats Eyes: Reports: Cataracts. Denies: Blurred vision HEENT: Reports: Difficulty Hearing. Denies: Difficulty Swallowing Cardiovascular: Denies: Chest Pain, Claudication, Chest Pressure Respiratory: Reports: Cough, Shortness of Breath, Shortness of breath at rest, Shortness of breath upon exertion Gastrointestinal: Denies: Abdominal Pain, Constipation Genitourinary: Denies: Dysuria Musculoskeletal: Reports: Joint Pain - Admits to minimal left ankle pain Skin: Denies: Dryness Neurological: Reports: Balance problems Psychiatric: Denies: Anxiety, Depression Endocrine: Denies: Change in Body Habitus, Heat/ Cold Intolerance Patient Problems: Active and Suspected Problems Fracture of ankle, bimalleolar, left, closed (Acute) Dislocation of left ankle joint (Acute) Shortness of breath (Acute) Nonproductive cough (Acute) Subjective: Patient seen at bedside resting comfortably. Patient admits to no pain in his left ankle at this time. He has kept the dressing to his left lower extremity clean, dry, intact. He will his only place his left foot on the ground to rest. He has not been placing any pressure on his left foot. Overall, he admits to no symptoms in his left ankle at this time. He does admit to shortness of breath that is improved. Patient denies any other acute complaints at this time. Objective: Lower extremity physical exam: Dressing is clean, dry, intact the left lower extremity. Evidence of rewrapping of Robert bandages noted. Capillary fill time is less than 3 seconds all digits of the left foot. No pain upon palpation or compression of the left ankle at this time. Foot and ankle appear in a rectus position at this time underneath the tibia. Neurovascular status is intact to the digits at this time. Negative Homans' sign noted of the left lower extremity. - Physical Exam Vitals/I&O's: Vital Signs Temp Pulse Resp BP Pulse Ox 97.9 F 56 L 18 131/58 H 95 05/12/20 14:54 05/12/20 14:54 05/12/20 14:54 05/12/20 14:54 05/12/20 14:54 Oxygen Flow Rate (L/min) 4 Oxygen Delivery Method Nasal Cannula Weight: 84 kg Body Mass Index (BMI) 28.1 Intake and Output for Last 24 Hours 05/10/20 05/11/20 05/12/20 23:59 23:59 23:59 Intake Total 910 / 1360 1650 / 2000 900 / 900 Output Total 500 / 500 1650 / 1650 325 / 325 Balance 410 / 860 0 / 350 575 / 575 General: Alert, Oriented x3, Cooperative HEENT: Atraumatic, PERRLA Neck: Supple Lungs: Diminished Cardiovascular: Regular rate, Regular Rhythm, Normal S1, Normal S2 Abdomen: Bowel Sounds Present, Soft, Non Tender, Non-Distended Extremities: Capillary Refill Less than 3 Seconds, No Calf Tenderness Skin: No rashes, No breakdown Musculoskeletal: No Tenderness to Palpation of Joints or Extremities - No pain upon palpation or compression of the left ankle. Neurological: Sensory exam intact to light touch and pain Psych/Mental Status: Alert and oriented to time, place, person, mood and affect Microbiology Past 72 Hours 05/09/20 14:05 Blood Culture (Wb) - Anticubital Right Blood Culture - Preliminary No growth in 48 hours. 05/09/20 13:45 Blood Culture (Wb) - No Site/Description Given Blood Culture - Preliminary No growth in 48 hours. 05/09/20 23:20 Interface Orders Legionella Antigen - Final 05/09/20 23:20 Interface Orders Streptococcus pneumoniae Antigen (M - Final 05/09/20 14:50 Mucosa - Nose SARS-CoV-2 Antigen (Rapid) - Final Laboratory Results 05/12/20 05:05: WBC 9.3, RBC 3.57 L, Hgb 12.4 L, Hct 36.8 L, MCV 103.1 H, MCH 34.7 H, MCHC 33.7, RDW Std Deviation 51.8 H, RDW Coeff of Bola 13.6, Plt Count 383, MPV 10.2, Immature Gran % (Auto) 1.100 H, Neut % (Auto) 81.1 H, Lymph % (Auto) 11.7 L, Amador % (Auto) 5.9, Eos % (Auto) 0.0, Baso % (Auto) 0.2, Absolute Neuts (auto) 7.6, Absolute Lymphs (auto) 1.09, Nucleated RBC % 0 05/12/20 05:05: Sodium 139, Potassium 4.4, Chloride 107, Carbon Dioxide 29.0, Anion Gap 3 L, BUN 41 H, Creatinine 0.86, Estim Creat Clear Calc 67.38, Est GFR (MDRD) Af Amer 110, Est GFR (MDRD) Non-Af 91, BUN/Creatinine Ratio 47.6 H, Glucose 117 H, Calcium 8.2 L, Total Bilirubin 0.40, AST 23, ALT 31, Alkaline Phosphatase 66, Total Protein 5.9 L, Albumin 2.3 L, Globulin 3.6, Albumin/Globulin Ratio 0.6 L Current Medications Acetaminophen (Acetaminophen 325 Mg Tablet) 650 mg PO Q6H PRN PRN PRN Reason: Pain Score 1-10/Temp > 100.7 F Hydrocodone Bitart/Acetaminophen (Hydrocodone Bitartrate/Apap 5/325 Tablet) 2 tablet PO Q6H PRN PRN PRN Reason: Pain Score 4-10 Last Admin: 05/12/20 08:48 Dose: 2 tablet Documented by: Allopurinol (Allopurinol 300 Mg Tablet) 300 mg PO DAILY [facility] Last Admin: 05/12/20 08:47 Dose: 300 mg Documented by: Celecoxib (Celecoxib 200 Mg Capsule) 200 mg PO DAILY [facility] Last Admin: 05/12/20 08:46 Dose: 200 mg Documented by: Dexamethasone (Dexamethasone 4 Mg Tablet) 6 mg PO DAILY [facility] Stop: 05/18/20 10:01 Last Admin: 05/12/20 08:47 Dose: 6 mg Documented by: Enoxaparin Sodium (Enoxaparin 40 Mg/0.4 Ml Syringe) 40 mg SC BID [facility] Last Admin: 05/12/20 08:47 Dose: 40 mg Documented by: Remdesivir 100 mg/ Sodium (Chloride) 250 mls @ 125 mls/hr IV DAILY@2200 [facility] Stop: 05/13/20 23:59 Last Infusion: 05/12/20 00:07 Dose: Infused Documented by: Sodium Chloride () 250 mls @ 15 mls/hr IV .[id number] PRN PRN Reason: Saline Flush Sodium Chloride () 250 mls @ 15 mls/hr IV .[id number] PRN PRN Reason: Additional IVPB Infusion Ondansetron HCl (Ondansetron 4 Mg/2 Ml Vial) 4 mg IV Q8H PRN PRN PRN Reason: NAUSEA/VOMITING Sodium Chloride (0.9% Saline Lock 10 Ml Syringe) 10 - 40 ml IV UD PRN PRN Reason: SALINE FLUSH Last Admin: 05/10/20 22:27 Dose: 10 ml Documented by: Throat Lozenges (Benzocaine/Menthol 1 Lozenge) 1 lozenge MUCOUS MEM Q4H PRN PRN PRN Reason: sore throat Last Admin: 05/10/20 02:36 Dose: 1 lozenge Documented by: Zolpidem Tartrate (Zolpidem Tartrate 5 Mg Tablet) 5 mg PO QHS PRN PRN PRN Reason: SLEEP Assessment/Plan All Active Problems Fracture of ankle, bimalleolar, left, closed (Acute) Dislocation of left ankle joint (Acute) History of gout (Resolved) Shortness of breath (Acute) Nonproductive cough (Acute) Assessment: This is a 79-year-old male admitted for Covid pneumonia with a left ankle bimalleolar fracture and a left ankle dislocation that occurred on April 27, 2020. Plan: Patient chart reviewed and patient evaluated. Full discussion had with the patient about the patient's current clinical condition. Full discussion had with the patient's daughter, Zohreh, about the patient's current clinical condition as well. I discussed with the patient the CT scan findings that were taken as an outpatient. I discussed with the patient the current clinical condition of the left ankle. I discussed with the patient continued conservative therapy versus surgical intervention of his left ankle. Continue conservative therapy would include continued use of the posterior splint with transitioning to a below the knee cast as an outpatient. I discussed the risks and benefits of conservative therapy, including but not limited to delayed or nonhealing bone, continued pain, onset of arthritis, deformity of left foot and ankle. Surgical intervention would include the open reduction with internal fixation of the left ankle bimalleolar fracture and syndesmosis as previously discussed. I discussed the risks and benefits of surgical intervention, including but not limited to delayed or nonhealing wounds, delayed or nonhealing bone, DVT, damage to surrounding structures, infection, continued pain, loss of limb, loss of life. All the patient's questions were answered to his satisfaction and all of his concerns were addressed. No guarantees were made as to the outcome of the procedure. Furthermore, since the assumption is that the patient does have COVID-19, it is recommended that the surgery be delayed approximately 2 weeks from the onset of symptoms. Patient displayed verbal understanding. At this time, patient is electing to continue conservative therapy for his left ankle. He states that he does not want surgery at this time. He states that he may decide to perform surgery at a later time, but due to the multiple medical problems that he is experiencing at this time, he is electing to perform conservative therapy for the foreseeable future.. This sentiment was echoed by the patient's daughter, Zohreh, as well. Again, I discussed the risks of conservative therapy. Patient displayed verbal understanding, and like to proceed with conservative therapy at this time. At this time, the surgery that was scheduled for May 15 will be canceled. Patient is to keep the dressing to the left lower extremity clean, dry, intact. Reinforce the dressing as needed. Patient is to continue nonweightbearing to the left lower extremity at this time. Patient is to continue elevating his left foot above the level of heart as often as possible. Patient is to continue ice around his left knee 30 minutes every hour as needed for the pain. Patient is to continue his normal pain medication regimen as set forth by his pain management physician. Physical therapy, please continue to work with the patient for nonweightbearing to the left lower extremity. Patient will follow up with me in outpatient basis that will be arranged when patient gets discharged from an inpatient stay. I will follow up with the patient in an outpatient basis. Please do not hesitate to reach out to me with any questions or concerns. Thank you very much for the consultation and allowing me to take part in the care of your patient. Office Visits / Consults: [id number] IP Consult L3
--- NOTE | 2020-05-12 17:23 | PN_ITS ---
Patient Problems: Active and Suspected Problems Fracture of ankle, bimalleolar, left, closed (Acute) Dislocation of left ankle joint (Acute) Shortness of breath (Acute) Nonproductive cough (Acute) Reason for Visit: COVID 19 Subjective: Breathing well. States his symptoms began shortly after his ankle fracture. Vitals/I&O's: Vital Signs Temp Pulse Resp BP Pulse Ox 36.6 C 56 L 18 131/58 H 95 05/12/20 14:54 05/12/20 14:54 05/12/20 14:54 05/12/20 14:54 05/12/20 14:54 Oxygen Flow Rate (L/min) 4 Oxygen Delivery Method Nasal Cannula Weight: 84 kg Body Mass Index (BMI) 28.1 Intake and Output for Last 24 Hours 05/10/20 05/11/20 05/12/20 23:59 23:59 23:59 Intake Total 910 / 1360 1650 / 2000 900 / 900 Output Total 500 / 500 1650 / 1650 325 / 325 Balance 410 / 860 0 / 350 575 / 575 General: Alert, No apparent distress HEENT: Atraumatic, Normocephalic Oral: Moist Mucosa, No Gingival or Mucosal Lesions/ Ulcerations Neck: No Nodes, Thyroid Normal Size and Texture Lungs: Clear to auscultation, Normal air movement, No rhonchi, No wheeze, No rales Cardiovascular: Regular rate, Regular Rhythm, Normal S1, Normal S2, No murmurs Abdomen: Bowel Sounds Present, Soft, Non Tender, Non-Distended, No Hepato- splenomegaly Extremities: No edema, No Calf Tenderness Psych/Mental Status: Normal Affect, Appropriate Microbiology Past 72 Hours 05/09/20 14:05 Blood Culture (Wb) - Anticubital Right Blood Culture - Preliminary No growth in 48 hours. 05/09/20 13:45 Blood Culture (Wb) - No Site/Description Given Blood Culture - Preliminary No growth in 48 hours. 05/09/20 23:20 Interface Orders Legionella Antigen - Final 05/09/20 23:20 Interface Orders Streptococcus pneumoniae Antigen (M - Final 05/09/20 14:50 Mucosa - Nose SARS-CoV-2 Antigen (Rapid) - Final Laboratory Results 05/12/20 05:05: WBC 9.3, RBC 3.57 L, Hgb 12.4 L, Hct 36.8 L, MCV 103.1 H, MCH 34.7 H, MCHC 33.7, RDW Std Deviation 51.8 H, RDW Coeff of Bola 13.6, Plt Count 383, MPV 10.2, Immature Gran % (Auto) 1.100 H, Neut % (Auto) 81.1 H, Lymph % (Auto) 11.7 L, Latimer % (Auto) 5.9, Eos % (Auto) 0.0, Baso % (Auto) 0.2, Absolute Neuts (auto) 7.6, Absolute Lymphs (auto) 1.09, Nucleated RBC % 0 05/12/20 05:05: Sodium 139, Potassium 4.4, Chloride 107, Carbon Dioxide 29.0, Anion Gap 3 L, BUN 41 H, Creatinine 0.86, Estim Creat Clear Calc 67.38, Est GFR (MDRD) Af Amer 110, Est GFR (MDRD) Non-Af 91, BUN/Creatinine Ratio 47.6 H, Glucose 117 H, Calcium 8.2 L, Total Bilirubin 0.40, AST 23, ALT 31, Alkaline Phosphatase 66, Total Protein 5.9 L, Albumin 2.3 L, Globulin 3.6, Albumin/Globulin Ratio 0.6 L Current Medications Acetaminophen (Acetaminophen 325 Mg Tablet) 650 mg PO Q6H PRN PRN PRN Reason: Pain Score 1-10/Temp > 100.7 F Hydrocodone Bitart/Acetaminophen (Hydrocodone Bitartrate/Apap 5/325 Tablet) 2 tablet PO Q6H PRN PRN PRN Reason: Pain Score 4-10 Last Admin: 05/12/20 08:48 Dose: 2 tablet Documented by: Allopurinol (Allopurinol 300 Mg Tablet) 300 mg PO DAILY [facility] Last Admin: 05/12/20 08:47 Dose: 300 mg Documented by: Celecoxib (Celecoxib 200 Mg Capsule) 200 mg PO DAILY [facility] Last Admin: 05/12/20 08:46 Dose: 200 mg Documented by: Dexamethasone (Dexamethasone 4 Mg Tablet) 6 mg PO DAILY [facility] Stop: 05/18/20 10:01 Last Admin: 05/12/20 08:47 Dose: 6 mg Documented by: Enoxaparin Sodium (Enoxaparin 40 Mg/0.4 Ml Syringe) 40 mg SC BID [facility] Last Admin: 05/12/20 08:47 Dose: 40 mg Documented by: Remdesivir 100 mg/ Sodium (Chloride) 250 mls @ 125 mls/hr IV DAILY@2200 [place] Stop: 05/13/20 23:59 Last Infusion: 05/12/20 00:07 Dose: Infused Documented by: Sodium Chloride () 250 mls @ 15 mls/hr IV .[id number] PRN PRN Reason: Saline Flush Sodium Chloride () 250 mls @ 15 mls/hr IV .[id number] PRN PRN Reason: Additional IVPB Infusion Ondansetron HCl (Ondansetron 4 Mg/2 Ml Vial) 4 mg IV Q8H PRN PRN PRN Reason: NAUSEA/VOMITING Sodium Chloride (0.9% Saline Lock 10 Ml Syringe) 10 - 40 ml IV UD PRN PRN Reason: SALINE FLUSH Last Admin: 05/10/20 22:27 Dose: 10 ml Documented by: Throat Lozenges (Benzocaine/Menthol 1 Lozenge) 1 lozenge MUCOUS MEM Q4H PRN PRN PRN Reason: sore throat Last Admin: 05/10/20 02:36 Dose: 1 lozenge Documented by: Zolpidem Tartrate (Zolpidem Tartrate 5 Mg Tablet) 5 mg PO QHS PRN PRN PRN Reason: SLEEP STROKE Vital Signs/Narrative: Vital Signs Temp Pulse Resp BP Pulse Ox 05/12/20 14:54 36.6 C 56 L 18 131/58 H 95 Medical Necessity - Tobacco Use Smoking Status: Never smoker Tobacco Use: Non-smoker Assessment/Plan All Active Problems Fracture of ankle, bimalleolar, left, closed (Acute) Dislocation of left ankle joint (Acute) History of gout (Resolved) Shortness of breath (Acute) Nonproductive cough (Acute) 1. acute COVID 19 pneumonia * on dexa and rem * ID following * wean oxygen as tolerated * symptoms began around the 24th * CT findings cw COVID and I recommend treatment and isolation accordingly. The Ag and PCR tests are false negative 2. left bimalleolar fracture * continue splints and NWB * follow up with podiatry as outpt 3. VTE prophylaxis: LMWH Inpatient E&M: 63956 Subs Hosp L2
--- NOTE | 2020-05-12 18:10 | RAD_ITS ---
STUDY: X-RAY - LEFT ANKLE REASON FOR EXAM: Male, 79 years old. LEFT ANKLE FRACTURE. ASSESS FOR ALIGNMENT. TECHNIQUE: 3 view(s) of the ankle. COMPARISON: Comparison is made with prior study dated 04/27/2020. FINDINGS: Stable oblique fracture of the distal fibula. Stable asymmetry of the ankle mortise. Plantar spurs. The visualized subtalar, talonavicular, calcaneocuboid and tarsal articulations are normal. The soft tissue structures are unremarkable. RAD/Ankle min 3 Views IMPRESSION: Satisfactory reduction of the distal fibular fracture. Asymmetry of the ankle mortise. Electronically Signed: Destin Herring, at 14:12 EST , Service support ,
[2020-05-13] VITALS (12 sets, daily range): BP systolic 129–137; BP diastolic 65–80; PULSE 45–62; RESP 16–20; TEMP 36.8–37.1; O2SAT 92–95
[2020-05-13] MEDS: HYDROcodone Bitartrate/Apap 5/325 Tablet PO ×3 (02:46→19:36)
[2020-05-13 06:56] LABS: Hematocrit 37.5 % (40-54); Hemoglobin 12.3 g/dL (13.0-16.5); Mean Corp Hgb Conc 32.8 g/dL (32-36); Mean Corpuscular Hgb 33.7 pg (27.0-32.0); Mean Corpuscular Volume 102.7 fL (80-94); Mean Platelet Vol. 10.4 fl (6.2-12.0); Platelet Count 337 K/mm3 (150-450); RBC Distribution Width CV 13.4 % (11.6-14.6); RBC Distribution Width SD 51.5 fl (35.1-43.9); Red Blood Count 3.65 M/mm3 (4.6-6.2)
[2020-05-13 07:11] LABS: D-Dimer Quantitative (DVT/PE) 1.19 FEU/ug/m (0.27-0.49)
[2020-05-13 07:30] LABS: ALB/GLOB Ratio 0.6 RATIO (0.9-2.4); AST(SGOT) 25 U/L (15-37); Alanine Aminotransfer ALT/SGPT 38 U/L (16-61); Albumin, Serum 2.2 g/dL (3.2-5.0); Alkaline Phosphatase 64 U/L (45-117); Anion Gap 6 (5-15); BUN 34 mg/dL (7-18); BUN/Creat Ratio 48.3 RATIO (10-20); Calcium,Total 7.8 mg/dL (8.5-10.1); Chloride 104 mmol/L (98-107); EST Glomerular Filtration Rate 115 mL/min (>60); Est Glom Filt Rate - Afr Amer 139 mL/min (>60); Estimated Creatinine Clearance 57.95 ml/min; Globulin 3.6 g/dL (2.2-4.2); Glucose 110 mg/dL (74-106); Potassium 4.5 mmol/L (3.5-5.1); Protein, Total 5.8 g/dL (6.4-8.2); Sodium Level 136 mmol/L (136-145)
[2020-05-13] MEDS: Allopurinol 300 MG Tablet PO (10:04)
[2020-05-13] MEDS: dexAMETHasone 4 MG Tablet 6 MG PO (10:04)
[2020-05-13] MEDS: Celecoxib 200 MG Capsule PO (10:04)
[2020-05-13] MEDS: Enoxaparin 40 MG/0.4 ML Syringe SC ×2 (10:05→19:37)
--- NOTE | 2020-05-13 11:16 | PCM.PN.ID ---
Patient Problems: Active and Suspected Problems Fracture of ankle, bimalleolar, left, closed (Acute) Dislocation of left ankle joint (Acute) Shortness of breath (Acute) Nonproductive cough (Acute) Subjective: Not feeling well, still cough and dyspnea, weakness. - Physical Exam Vitals/I&O's: Vital Signs Temp Pulse Resp BP Pulse Ox 98.3 F 55 L 16 129/65 H 94 05/13/20 10:08 05/13/20 10:08 05/13/20 10:08 05/13/20 10:08 05/13/20 10:08 Oxygen Flow Rate (L/min) 4 Oxygen Delivery Method Nasal Cannula Weight: 84 kg Body Mass Index (BMI) 28.1 Intake and Output for Last 24 Hours 05/11/20 05/12/20 05/13/20 23:59 23:59 23:59 Intake Total 1650 / 2000 1150 / 1400 500 / 500 Output Total 1650 / 1650 325 / 825 700 / 700 Balance 0 / 350 825 / 575 -200 / -200 General: Alert, Cooperative Lungs: Diminished Cardiovascular: Regular rate, Regular Rhythm Abdomen: Soft, Non Tender, Non-Distended Skin: No rashes Microbiology Past 72 Hours 05/09/20 14:05 Blood Culture (Wb) - Anticubital Right Blood Culture - Preliminary No growth in 48 hours. 05/09/20 13:45 Blood Culture (Wb) - No Site/Description Given Blood Culture - Preliminary No growth in 48 hours. Laboratory Results 05/13/20 06:00: WBC 9.0, RBC 3.65 L, Hgb 12.3 L, Hct 37.5 L, MCV 102.7 H, MCH 33.7 H, MCHC 32.8, RDW Std Deviation 51.5 H, RDW Coeff of Bola 13.4, Plt Count 337, MPV 10.4 05/13/20 06:00: D-Dimer Quant (PE/DVT) 1.19 H* 05/13/20 06:00: Sodium 136, Potassium 4.5, Chloride 104, Carbon Dioxide 26.0, Anion Gap 6, BUN 34 H, Creatinine 0.70, Estim Creat Clear Calc 57.95, Est GFR (MDRD) Af Amer 139, Est GFR (MDRD) Non-Af 115, BUN/Creatinine Ratio 48.3 H, Glucose 110 H, Calcium 7.8 L, Total Bilirubin 0.30, AST 25, ALT 38, Alkaline Phosphatase 64, Total Protein 5.8 L, Albumin 2.2 L, Globulin 3.6, Albumin/Globulin Ratio 0.6 L 05/13/20 06:00: SARS Serology Pending Current Medications Acetaminophen (Acetaminophen 325 Mg Tablet) 650 mg PO Q6H PRN PRN PRN Reason: Pain Score 1-10/Temp > 100.7 F Hydrocodone Bitart/Acetaminophen (Hydrocodone Bitartrate/Apap 5/325 Tablet) 2 tablet PO Q6H PRN PRN PRN Reason: Pain Score 4-10 Last Admin: 05/13/20 02:46 Dose: 2 tablet Documented by: Allopurinol (Allopurinol 300 Mg Tablet) 300 mg PO DAILY [facility] Last Admin: 05/13/20 10:04 Dose: 300 mg Documented by: Celecoxib (Celecoxib 200 Mg Capsule) 200 mg PO DAILY [facility] Last Admin: 05/13/20 10:04 Dose: 200 mg Documented by: Dexamethasone (Dexamethasone 4 Mg Tablet) 6 mg PO DAILY [facility] Stop: 05/18/20 10:01 Last Admin: 05/13/20 10:04 Dose: 6 mg Documented by: Enoxaparin Sodium (Enoxaparin 40 Mg/0.4 Ml Syringe) 40 mg SC BID [facility] Last Admin: 05/13/20 10:05 Dose: 40 mg Documented by: Remdesivir 100 mg/ Sodium (Chloride) 250 mls @ 125 mls/hr IV DAILY@2200 [facility] Stop: 05/13/20 23:59 Last Infusion: 05/12/20 22:12 Dose: Infused Documented by: Sodium Chloride () 250 mls @ 15 mls/hr IV .[id number] PRN PRN Reason: Saline Flush Sodium Chloride () 250 mls @ 15 mls/hr IV .[id number] PRN PRN Reason: Additional IVPB Infusion Ondansetron HCl (Ondansetron 4 Mg/2 Ml Vial) 4 mg IV Q8H PRN PRN PRN Reason: NAUSEA/VOMITING Sodium Chloride (0.9% Saline Lock 10 Ml Syringe) 10 - 40 ml IV UD PRN PRN Reason: SALINE FLUSH Last Admin: 05/10/20 22:27 Dose: 10 ml Documented by: Throat Lozenges (Benzocaine/Menthol 1 Lozenge) 1 lozenge MUCOUS MEM Q4H PRN PRN PRN Reason: sore throat Last Admin: 05/10/20 02:36 Dose: 1 lozenge Documented by: Zolpidem Tartrate (Zolpidem Tartrate 5 Mg Tablet) 5 mg PO QHS PRN PRN PRN Reason: SLEEP Medical Necessity - Tobacco Use Smoking Status: Never smoker Tobacco Use: Non-smoker Route of nutrition/ use of supplements: [] Nutritional Intake: [] IV Site: [] Murguia Catheter: [] - Assessment/Plan Antibiotics: [] Assessment/Plan: [] Active and Suspected Problems Shortness of breath (Acute) Nonproductive cough (Acute) Hypoxia with suspected covid - lymphopenia on admission. At risk for dvt/PE due to foot in cast, but neg CTA of chest 05/07. D-dimer was 1.2. Is on lovenox 40mg bid. On dex, remdesivir. Covid pcr neg 05/07, covid Ag neg 05/09. Pending covid Abs. Had reported sx for about 2 weeks at this point. Will follow
--- NOTE | 2020-05-13 12:49 | CASEMGMT ---
Addendum entered by Marisel Jacinto 05/13/20 13:47: Pt's daughter called back, states they do plan to bring pt home. Pt does not want home care. She would like both the oxygen and commode ordered through [facility]. Daughter would prefer a commode with a U shaped seat, [facility] does not have these. She is aware, may purchase one on her own. SW/CM looked at [facility], [employer], [employer] and daughter called [facility]--all but [facility] do have the commode with the U shaped seat, these would be private pay however. SW let daughter know about [employer] [facility] and [employer], daughter may order this additionally. SW did call [facility] to make sure they have a 3 in 1 commode available for tomorrow, spoke w/Kasey. They do have one, and will set it aside for this pt. CM will follow up with the ordering of the 3 in 1 commode and O2 for pt tomorrow or when pt is ready for discharge. SILVERIO Conroy Original Note: SW spoke w/daughter in regard to discharge plan. She states pt is concerned about going home however she may still want to get pt home with the care they had in place, along with a friend who is a nurse. She states if pt were to go home is wondering about oxygen and a bedside commode. JORDYN explained we will get this arranged for pt, asked about DME companies. Daughter has no preference, SW explained we will likely use [facility], daughter agreeable to this. SW explained also we can try to set up home care as well. JORDYN then did review SNF list of places taking pts w/COVID, she states that she is agreeable to referral being sent to [facility] in [place], but would not want any other facility. She is not completely sure of what is the best plan for pt. She plans to speak w/pt and call this SW back. JORDYN will send referral to [facility] shortly, final plan still to be determined, home w/O2 and bedside commode, and possible home care, vs. SNF. SILVERIO Conroy
--- NOTE | 2020-05-13 13:11 | CT_ITS ---
STUDY: CTA CHEST REASON FOR EXAM: Male, 79 years old. COVID, SOB, DRY COUGH, WEAKNESS, RECENT LOWER EXTREMITY FX RADIATION DOSAGE (If Supplied By Facility): CTDIvol = ( 9.59 ) mGy, DLP = ( 523.31 ) mGycm TECHNIQUE: The examination was performed with the intravenous administration of IV 100mL Isovue-370. Post-processing of the angiographic images was performed, with multiplanar reformation and 3D reconstruction. Individualized dose optimization techniques were used for this CT. COMPARISON: Comparison is made with prior study dated 05/07/2020. FINDINGS: Stable 3.7 cm x 2.7 cm heterogeneous nodule in the left lobe of the thyroid. Normal enhancement of the main pulmonary artery and right and left pulmonary arteries. Normal enhancement of the bilateral peripheral pulmonary arteries. There is no demonstrated pulmonary embolism. Normal thoracic aorta and visualized great vessels. There is no demonstrated aortic dissection. Normal heart and pericardium. Normal mediastinum. Normal hilar regions. Normal visualized trachea and bronchi. The lungs are well expanded. Diffuse groundglass appearance of both lungs. This is worse in the upper lobes as well as in the left lower lobe. These affect progressed as compared to prior study. Normal pleura. Normal chest wall structures. There are degenerative changes of thoracic spine. Small hiatal hernia. Fatty infiltration of the liver. CT/CTA Chest W/WO Contrast IMPRESSION: No evidence of pulmonary embolism. Since prior study, there has been a progression of diffuse groundglass appearance in the lungs worse in the upper lobes as well as in the left lower lobe. Stable hypodense nodule in the left lobe of the liver. There is substernal extension of the left lobe. Electronically Signed: Destin Herring, at 14:39 EST , Service support ,
--- NOTE | 2020-05-13 13:27 | PN_ITS ---
Patient Problems: Active and Suspected Problems Fracture of ankle, bimalleolar, left, closed (Acute) Dislocation of left ankle joint (Acute) Shortness of breath (Acute) Nonproductive cough (Acute) Reason for Visit: COVID 19 Subjective: Short of breath with speaking. Vitals/I&O's: Vital Signs Temp Pulse Resp BP Pulse Ox 36.8 C 55 L 16 129/65 H 94 05/13/20 10:08 05/13/20 10:08 05/13/20 10:08 05/13/20 10:08 05/13/20 10:08 Oxygen Flow Rate (L/min) 4 Oxygen Delivery Method Nasal Cannula Weight: 84 kg Body Mass Index (BMI) 28.1 Intake and Output for Last 24 Hours 05/11/20 05/12/20 05/13/20 23:59 23:59 23:59 Intake Total 1650 / 2000 1150 / 1400 500 / 500 Output Total 1650 / 1650 325 / 825 700 / 700 Balance 0 / 350 825 / 575 -200 / -200 General: Alert, Cooperative, No apparent distress HEENT: Atraumatic, Normocephalic Oral: Moist Mucosa, No Gingival or Mucosal Lesions/ Ulcerations Neck: No Nodes, Thyroid Normal Size and Texture Lungs: Clear to auscultation, Normal air movement, No rhonchi, No wheeze Cardiovascular: Regular rate, Regular Rhythm, Normal S1, Normal S2 Abdomen: Bowel Sounds Present, Soft, Non Tender, Non-Distended, No Hepato- splenomegaly Extremities: No edema, No Calf Tenderness Microbiology Past 72 Hours 05/09/20 14:05 Blood Culture (Wb) - Anticubital Right Blood Culture - Preliminary No growth in 48 hours. 05/09/20 13:45 Blood Culture (Wb) - No Site/Description Given Blood Culture - Preliminary No growth in 48 hours. Laboratory Results 05/13/20 06:00: WBC 9.0, RBC 3.65 L, Hgb 12.3 L, Hct 37.5 L, MCV 102.7 H, MCH 33.7 H, MCHC 32.8, RDW Std Deviation 51.5 H, RDW Coeff of Bola 13.4, Plt Count 337, MPV 10.4 05/13/20 06:00: D-Dimer Quant (PE/DVT) 1.19 H* 05/13/20 06:00: Sodium 136, Potassium 4.5, Chloride 104, Carbon Dioxide 26.0, Anion Gap 6, BUN 34 H, Creatinine 0.70, Estim Creat Clear Calc 57.95, Est GFR (MDRD) Af Amer 139, Est GFR (MDRD) Non-Af 115, BUN/Creatinine Ratio 48.3 H, Glucose 110 H, Calcium 7.8 L, Total Bilirubin 0.30, AST 25, ALT 38, Alkaline Phosphatase 64, Total Protein 5.8 L, Albumin 2.2 L, Globulin 3.6, Albumin/Globulin Ratio 0.6 L 05/13/20 06:00: SARS Serology Pending Current Medications Acetaminophen (Acetaminophen 325 Mg Tablet) 650 mg PO Q6H PRN PRN PRN Reason: Pain Score 1-10/Temp > 100.7 F Hydrocodone Bitart/Acetaminophen (Hydrocodone Bitartrate/Apap 5/325 Tablet) 2 tablet PO Q6H PRN PRN PRN Reason: Pain Score 4-10 Last Admin: 05/13/20 11:40 Dose: 2 tablet Documented by: Allopurinol (Allopurinol 300 Mg Tablet) 300 mg PO DAILY [facility] Last Admin: 05/13/20 10:04 Dose: 300 mg Documented by: Celecoxib (Celecoxib 200 Mg Capsule) 200 mg PO DAILY [facility] Last Admin: 05/13/20 10:04 Dose: 200 mg Documented by: Dexamethasone (Dexamethasone 4 Mg Tablet) 6 mg PO DAILY [facility] Stop: 05/18/20 10:01 Last Admin: 05/13/20 10:04 Dose: 6 mg Documented by: Enoxaparin Sodium (Enoxaparin 40 Mg/0.4 Ml Syringe) 40 mg SC BID [facility] Last Admin: 05/13/20 10:05 Dose: 40 mg Documented by: Remdesivir 100 mg/ Sodium (Chloride) 250 mls @ 125 mls/hr IV DAILY@2200 [facility] Stop: 05/13/20 23:59 Last Infusion: 05/12/20 22:12 Dose: Infused Documented by: Sodium Chloride () 250 mls @ 15 mls/hr IV .[id number] PRN PRN Reason: Saline Flush Sodium Chloride () 250 mls @ 15 mls/hr IV .[id number] PRN PRN Reason: Additional IVPB Infusion Ondansetron HCl (Ondansetron 4 Mg/2 Ml Vial) 4 mg IV Q8H PRN PRN PRN Reason: NAUSEA/VOMITING Sodium Chloride (0.9% Saline Lock 10 Ml Syringe) 10 - 40 ml IV UD PRN PRN Reason: SALINE FLUSH Last Admin: 05/10/20 22:27 Dose: 10 ml Documented by: Throat Lozenges (Benzocaine/Menthol 1 Lozenge) 1 lozenge MUCOUS MEM Q4H PRN PRN PRN Reason: sore throat Last Admin: 05/10/20 02:36 Dose: 1 lozenge Documented by: Zolpidem Tartrate (Zolpidem Tartrate 5 Mg Tablet) 5 mg PO QHS PRN PRN PRN Reason: SLEEP STROKE Vital Signs/Narrative: Vital Signs Temp Pulse Resp BP Pulse Ox 05/13/20 10:08 36.8 C 55 L 16 129/65 H 94 Medical Necessity - Tobacco Use Smoking Status: Never smoker Tobacco Use: Non-smoker Assessment/Plan All Active Problems Fracture of ankle, bimalleolar, left, closed (Acute) Dislocation of left ankle joint (Acute) History of gout (Resolved) Shortness of breath (Acute) Nonproductive cough (Acute) 1. acute COVID 19 pneumonia * on dexa and rem * ID following * wean oxygen as tolerated * symptoms began around the 24th * CT findings cw COVID and I recommend treatment and isolation accordingly. The Ag and PCR tests are false negative * check CTA chest. 2. left bimalleolar fracture * continue splints and NWB * follow up with podiatry as outpt 3. VTE prophylaxis: LMWH Inpatient E&M: [id number] [facility] Hosp L2
--- NOTE | 2020-05-13 18:45 | PCS.PANDOC ---
PANDEMIC DOCUMENTATION INITIATED: Date: 05/13/2020 Time: 0014
[2020-05-13] MEDS: NYSTATIN 500,000 UNIT/5 ML UDC 500000 UNIT PO ×2 (20:10→23:05)
[2020-05-14] MEDS: HYDROcodone Bitartrate/Apap 5/325 Tablet PO ×3 (02:10→15:09)
[2020-05-14 02:16] VITALS: BP 142/71; PULSE 57; RESP 18; TEMP 36.5; O2SAT 93
[2020-05-14 03:09] VITALS: PULSE 52
[2020-05-14 07:07] LABS: SARS-COV-2 TOTAL ABS Reactive (Nonreactive)
[2020-05-14 07:50] VITALS: PULSE 46
[2020-05-14 07:50] LABS: Hematocrit 38.7 % (40-54); Hemoglobin 12.7 g/dL (13.0-16.5); Mean Corp Hgb Conc 32.8 g/dL (32-36); Mean Corpuscular Hgb 33.5 pg (27.0-32.0); Mean Corpuscular Volume 102.1 fL (80-94); Mean Platelet Vol. 10.2 fl (6.2-12.0); Platelet Count 292 K/mm3 (150-450); RBC Distribution Width CV 13.3 % (11.6-14.6); RBC Distribution Width SD 50.5 fl (35.1-43.9); Red Blood Count 3.79 M/mm3 (4.6-6.2); White Blood Count 9.3 K/mm3 (4.4-11.0)
[2020-05-14 08:20] LABS: ALB/GLOB Ratio 0.8 RATIO (0.9-2.4); AST(SGOT) 18 U/L (15-37); Alanine Aminotransfer ALT/SGPT 36 U/L (16-61); Albumin, Serum 2.4 g/dL (3.2-5.0); Alkaline Phosphatase 68 U/L (45-117); Anion Gap 5 (5-15); BUN 31 mg/dL (7-18); Calcium,Total 7.8 mg/dL (8.5-10.1); Chloride 100 mmol/L (98-107); Creatinine, Serum 0.76 mg/dL (0.70-1.30); EST Glomerular Filtration Rate 106 mL/min (>60); Est Glom Filt Rate - Afr Amer 128 mL/min (>60); Estimated Creatinine Clearance 57.95 ml/min; Globulin 3.1 g/dL (2.2-4.2); Glucose 109 mg/dL (74-106); Potassium 5.1 mmol/L (3.5-5.1); Protein, Total 5.5 g/dL (6.4-8.2); Sodium Level 134 mmol/L (136-145)
[2020-05-14 08:30] VITALS: BP 132/76; RESP 24; TEMP 36.8; O2SAT 93
[2020-05-14 08:49] VITALS: PULSE 80
[2020-05-14] MEDS: NYSTATIN 500,000 UNIT/5 ML UDC 500000 UNIT PO ×3 (08:58→17:54)
[2020-05-14] MEDS: Enoxaparin 40 MG/0.4 ML Syringe SC (08:58)
[2020-05-14] MEDS: dexAMETHasone 4 MG Tablet 6 MG PO (08:59)
[2020-05-14] MEDS: Celecoxib 200 MG Capsule PO (08:59)
[2020-05-14] MEDS: Allopurinol 300 MG Tablet PO (08:59)
--- NOTE | 2020-05-14 13:43 | PCM.DC ---
- Discharge Diagnoses Current Active Problems: Current Active and Chronic Problems Fracture of ankle, bimalleolar, left, closed (Acute) Dislocation of left ankle joint (Acute) Shortness of breath (Acute) Nonproductive cough (Acute) You will use the following diet at home:: Regular Your food should be the consistency of: Regular Your liquids should be the consistency of: Regular/Thin Discharge Activity: Return to Normal Activity Call your doctor if you observe: Fever of 101 or Higher, Shortness of breath Allergies/Adverse Reactions: Allergies No Known Allergies Allergy (Verified 04/27/20 13:36) Medications to take at Discharge Celecoxib [Celebrex] 200 mg PO DAILY 04/27/20 Hydrocodone/Acetaminophen [Hydrocodone-Acetamin 10-325 mg] 1 tab PO TID PRN PRN 04/27/20 Zolpidem Tartrate [Ambien] 5 mg PO QHS PRN PRN 04/27/20 Allopurinol 300 mg PO DAILY 05/09/20 Dexamethasone [Decadron] 6 mg PO DAILY #4 tab 05/14/20 Nystatin 500,000 unit PO 4X/DAY #20 udc 05/14/20 The following prescriptions were given: Dexamethasone [Decadron] 6 mg PO DAILY #4 tab Transmission Status: Pending to [facility] Nystatin 500,000 unit PO 4X/DAY #20 udc Transmission Status: Pending to [facility] Primary Care Physician: Choco Burgos DO [Primary Care Provider] - Within 2 Weeks Test Results: Test results from this visit will be discussed in further detail at your follow-up appointment, if applicable. Proposed Discharge Date: 05/14/20
--- NOTE | 2020-05-14 13:44 | PCM.DC.SUM ---
Discharge Date and Diagnosis - Problem List Patient Problems: Active and Suspected Problems Fracture of ankle, bimalleolar, left, closed (Acute) Dislocation of left ankle joint (Acute) Shortness of breath (Acute) Nonproductive cough (Acute) Date of Admission: 05/09/20 Date of Discharge: 05/14/20 - Primary Discharge Diagnosis Acute Problems: Active Problems Fracture of ankle, bimalleolar, left, closed (Acute) Dislocation of left ankle joint (Acute) Shortness of breath (Acute) Nonproductive cough (Acute) 1. acute COVID 19 pneumonia on dexa and rem ID following wean oxygen as tolerated symptoms began around the 24 CT findings cw COVID and I recommend treatment and isolation accordingly. The Ag and PCR tests are false negative check CTA chest. 2. Acute hypoxic respiratory failure Patient dropped down to 88% on room air. Patient will require 4 L of oxygen at rest and with activity. 2. left bimalleolar fracture continue splints and NWB follow up with podiatry as outpt - Secondary Discharge Diagnosis Chronic Problems: Chronic Problems Peptic ulcer with hemorrhage (Chronic) Hospital Course and Treatment Operations: None, cholecystecomy Procedures: None, Angiogram Summary of Care Provided: The patient is a 79 year old M presents with shortness of breath. Initially, his antigen was negative. Patient had PCR that was reactive on the eighth. Patient had CAT scan findings consistent with COVID-19. Patient received dexamethasone as well as remdesivir.. Patient was overall doing well yesterday, patient was more short of breath patient did have a CAT scan that did not show any PE. Patient was evaluated for home oxygen. Patient dropped down to 88% room air. Patient will require oxygen with activity and at rest. [] Patient Problems: Active and Suspected Problems Fracture of ankle, bimalleolar, left, closed (Acute) Dislocation of left ankle joint (Acute) Shortness of breath (Acute) Nonproductive cough (Acute) - Physical Exam Vitals/I&O's: Vital Signs Temp Pulse Resp BP Pulse Ox 36.8 C 80 24 H 132/76 H 93 05/14/20 08:30 05/14/20 08:49 05/14/20 08:30 05/14/20 08:30 05/14/20 08:30 Oxygen Flow Rate (L/min) 4 Oxygen Delivery Method Nasal Cannula Weight: 84 kg Body Mass Index (BMI) 28.1 Intake and Output for Last 24 Hours 05/12/20 05/13/20 05/14/20 23:59 23:59 23:59 Intake Total 1150 / 1400 950 / 950 100 / 100 Output Total 325 / 825 1000 / 1000 900 / 900 Balance 825 / 575 -50 / -50 -800 / -800 General: Alert, Cooperative, No apparent distress HEENT: Atraumatic, Normocephalic Oral: Moist Mucosa, No Gingival or Mucosal Lesions/ Ulcerations Neck: No Nodes, Thyroid Normal Size and Texture Lungs: Clear to auscultation, Normal air movement, No rhonchi, No wheeze Cardiovascular: Regular rate, Regular Rhythm, Normal S1, Normal S2 Abdomen: Bowel Sounds Present, Soft, Non Tender, Non-Distended Extremities: No edema, No Calf Tenderness Microbiology Past 72 Hours 05/09/20 14:05 Blood Culture (Wb) - Anticubital Right Blood Culture - Preliminary No growth in 48 hours. 05/09/20 13:45 Blood Culture (Wb) - No Site/Description Given Blood Culture - Preliminary No growth in 48 hours. Laboratory Results 05/13/20 06:00: SARS Serology Reactive H 05/14/20 06:20: WBC 9.3, RBC 3.79 L, Hgb 12.7 L, Hct 38.7 L, MCV 102.1 H, MCH 33.5 H, MCHC 32.8, RDW Std Deviation 50.5 H, RDW Coeff of Bola 13.3, Plt Count 292, MPV 10.2 05/14/20 06:20: Sodium 134 L, Potassium 5.1, Chloride 100, Carbon Dioxide 29.0, Anion Gap 5, BUN 31 H, Creatinine 0.76, Estim Creat Clear Calc 57.95, Est GFR (MDRD) Af Amer 128, Est GFR (MDRD) Non-Af 106, BUN/Creatinine Ratio 41.0 H, Glucose 109 H, Calcium 7.8 L, Total Bilirubin 0.40, AST 18, ALT 36, Alkaline Phosphatase 68, Total Protein 5.5 L, Albumin 2.4 L, Globulin 3.1, Albumin/Globulin Ratio 0.8 L Current Medications Acetaminophen (Acetaminophen 325 Mg Tablet) 650 mg PO Q6H PRN PRN PRN Reason: Pain Score 1-10/Temp > 100.7 F Hydrocodone Bitart/Acetaminophen (Hydrocodone Bitartrate/Apap 5/325 Tablet) 2 tablet PO Q6H PRN PRN PRN Reason: Pain Score 4-10 Last Admin: 05/14/20 08:58 Dose: 2 tablet Documented by: Allopurinol (Allopurinol 300 Mg Tablet) 300 mg PO DAILY [facility] Last Admin: 05/14/20 08:59 Dose: 300 mg Documented by: Celecoxib (Celecoxib 200 Mg Capsule) 200 mg PO DAILY [facility] Last Admin: 05/14/20 08:59 Dose: 200 mg Documented by: Dexamethasone (Dexamethasone 4 Mg Tablet) 6 mg PO DAILY [facility] Stop: 05/18/20 10:01 Last Admin: 05/14/20 08:59 Dose: 6 mg Documented by: Enoxaparin Sodium (Enoxaparin 40 Mg/0.4 Ml Syringe) 40 mg SC BID [facility] Last Admin: 05/14/20 08:58 Dose: 40 mg Documented by: Sodium Chloride () 250 mls @ 15 mls/hr IV .[id number] PRN PRN Reason: Saline Flush Sodium Chloride () 250 mls @ 15 mls/hr IV .[id number] PRN PRN Reason: Additional IVPB Infusion Nystatin (Nystatin 500,000 Unit/5 Ml Udc) 500,000 unit PO 4X/DAY [facility] Last Admin: 05/14/20 08:58 Dose: 500,000 unit Documented by: Ondansetron HCl (Ondansetron 4 Mg/2 Ml Vial) 4 mg IV Q8H PRN PRN PRN Reason: NAUSEA/VOMITING Sodium Chloride (0.9% Saline Lock 10 Ml Syringe) 10 - 40 ml IV UD PRN PRN Reason: SALINE FLUSH Last Admin: 05/10/20 22:27 Dose: 10 ml Documented by: Throat Lozenges (Benzocaine/Menthol 1 Lozenge) 1 lozenge MUCOUS MEM Q4H PRN PRN PRN Reason: sore throat Last Admin: 05/10/20 02:36 Dose: 1 lozenge Documented by: Zolpidem Tartrate (Zolpidem Tartrate 5 Mg Tablet) 5 mg PO QHS PRN PRN PRN Reason: SLEEP Discharge Diet: No Restrictions Discharge Activity: Return to Normal Activity Call your doctor if you observe: Fever of 101 or Higher, Shortness of breath Home Medications: Medications to take at Discharge Celecoxib [Celebrex] 200 mg PO DAILY 04/27/20 Hydrocodone/Acetaminophen [Hydrocodone-Acetamin 10-325 mg] 1 tab PO TID PRN PRN 04/27/20 Zolpidem Tartrate [Ambien] 5 mg PO QHS PRN PRN 04/27/20 Allopurinol 300 mg PO DAILY 05/09/20 Dexamethasone [Decadron] 6 mg PO DAILY #4 tab 05/14/20 Nystatin 500,000 unit PO 4X/DAY #20 udc 05/14/20 Following Prescriptions Were Given to Patient: Dexamethasone [Decadron] 6 mg PO DAILY #4 tab Transmission Status: Pending to [id number] Nystatin 500,000 unit PO 4X/DAY #20 udc Transmission Status: Pending to [id number] Primary Care Physician: Choco Burgos DO [Primary Care Provider] - Within 2 Weeks Please Follow Up With: Chinmay Antunez DPM When: 2 weeks Disposition: Home with Home Health Minutes spent on discharge:: 35 Patient Condition:: Fair Medical Necessity - Tobacco Use Smoking Status: Never smoker Tobacco Use: Non-smoker Meaningful Use Info Meaningful Use Diagnoses (Choose all that apply): None applicable Inpatient E&M: 26389 Disch Hosp
--- NOTE | 2020-05-14 14:22 | NURSING ---
OFELIA Mott: Per primary nurse Angel- unable to do ambulatory/walking O2 test d/t ankle fracture. Per Ortho Consult Dr Antunez 05/12/2020: left ankle fracture that he suffered on April 27, 2020. Surgery was planned for May (This has since been canceled d/t COVID PNA). Plan: Physical therapy, please continue to work with the patient for nonweightbearing to the left lower extremity. Patient will follow up with me in outpatient basis that will be arranged when patient gets discharged from an inpatient stay. OFELIA Durant
[2020-05-14 15:05] VITALS: BP 110/53; PULSE 66; RESP 18; TEMP 37.2; O2SAT 90
--- NOTE | 2020-05-14 15:45 | NURSING ---
Addendum entered and electronically signed by Nieves Dominguez 05/14/20 17:12: 1619- Called [employer] [phone] ext [phone], s/w Fatuma and confirmed received oxygen order. States processing now and will deliver portable tank to patient bedside and concentrator/BSC to patient home. Updated patient's dtr Zohreh, denies any further questions and states that [employer] already delivered home O2 to patient home and her is on his way to get patient. OFELIA Durant Original Note: RNCM assessment: Received call from patient dtr Zohreh Henson d/t concern for DC home today and patient unable to be tested for oxygen with exertion. Does not want patient to come home without oxygen as patient has been on 4L. Aware this designer/writer is going to fax to [employer] and call to clarify oxygen requirements with COVID patient's to see if the guidelines have changed. Plan if guidelines unchanged will ask primary nurse to get patient OOB on weight bearing extremity to transfer to chair as patient will have to do this going home. Dtr acknowledges and agrees to plan. 1540- Called [employer]. s/w Kasey and aware for DC home today. Aware of 90% at rest on ra and non-weight bearing to LLE. States COVID guidelines are changed and will qualify if it is documented that needed by physician. Aware this designer/writer will fax orders at this time. Primary nurse Angel updated. OFELIA Durant
--- NOTE | 2020-05-14 16:14 | PN.ID_ITS ---
Patient Problems: Active and Suspected Problems Fracture of ankle, bimalleolar, left, closed (Acute) Dislocation of left ankle joint (Acute) Shortness of breath (Acute) Nonproductive cough (Acute) Subjective: Feeling better, home today, no fever - Physical Exam Vitals/I&O's: Vital Signs Temp Pulse Resp BP Pulse Ox 98.9 F 66 18 110/53 L 90 05/14/20 15:05 05/14/20 15:05 05/14/20 15:05 05/14/20 15:05 05/14/20 15:05 Oxygen Flow Rate (L/min) 4 Oxygen Delivery Method Room Air Weight: 84 kg Body Mass Index (BMI) 28.1 Intake and Output for Last 24 Hours 05/12/20 05/13/20 05/14/20 23:59 23:59 23:59 Intake Total 1150 / 1400 950 / 950 100 / 100 Output Total 325 / 825 1000 / 1000 1300 / 1300 Balance 825 / 575 -50 / -50 -1200 / -1200 General: Alert, Cooperative Lungs: Clear to auscultation, Diminished Cardiovascular: Regular rate, Regular Rhythm Abdomen: Soft, Non Tender, Non-Distended Skin: No rashes Microbiology Past 72 Hours 05/09/20 14:05 Blood Culture (Wb) - Anticubital Right Blood Culture - Final No growth in 5 days. 05/09/20 13:45 Blood Culture (Wb) - No Site/Description Given Blood Culture - Final No growth in 5 days. Laboratory Results 05/13/20 06:00: SARS Serology Reactive H 05/14/20 06:20: WBC 9.3, RBC 3.79 L, Hgb 12.7 L, Hct 38.7 L, MCV 102.1 H, MCH 33.5 H, MCHC 32.8, RDW Std Deviation 50.5 H, RDW Coeff of Bola 13.3, Plt Count 292, MPV 10.2 05/14/20 06:20: Sodium 134 L, Potassium 5.1, Chloride 100, Carbon Dioxide 29.0, Anion Gap 5, BUN 31 H, Creatinine 0.76, Estim Creat Clear Calc 57.95, Est GFR (MDRD) Af Amer 128, Est GFR (MDRD) Non-Af 106, BUN/Creatinine Ratio 41.0 H, Glucose 109 H, Calcium 7.8 L, Total Bilirubin 0.40, AST 18, ALT 36, Alkaline Phosphatase 68, Total Protein 5.5 L, Albumin 2.4 L, Globulin 3.1, Albumin/Globulin Ratio 0.8 L Current Medications Acetaminophen (Acetaminophen 325 Mg Tablet) 650 mg PO Q6H PRN PRN PRN Reason: Pain Score 1-10/Temp > 100.7 F Hydrocodone Bitart/Acetaminophen (Hydrocodone Bitartrate/Apap 5/325 Tablet) 2 tablet PO Q6H PRN PRN PRN Reason: Pain Score 4-10 Last Admin: 05/14/20 15:09 Dose: 2 tablet Documented by: Allopurinol (Allopurinol 300 Mg Tablet) 300 mg PO DAILY [facility] Last Admin: 05/14/20 08:59 Dose: 300 mg Documented by: Celecoxib (Celecoxib 200 Mg Capsule) 200 mg PO DAILY [facility] Last Admin: 05/14/20 08:59 Dose: 200 mg Documented by: Dexamethasone (Dexamethasone 4 Mg Tablet) 6 mg PO DAILY [facility] Stop: 05/18/20 10:01 Last Admin: 05/14/20 08:59 Dose: 6 mg Documented by: Enoxaparin Sodium (Enoxaparin 40 Mg/0.4 Ml Syringe) 40 mg SC BID [facility] Last Admin: 05/14/20 08:58 Dose: 40 mg Documented by: Sodium Chloride () 250 mls @ 15 mls/hr IV .[id number] PRN PRN Reason: Saline Flush Sodium Chloride () 250 mls @ 15 mls/hr IV .[id number] PRN PRN Reason: Additional IVPB Infusion Nystatin (Nystatin 500,000 Unit/5 Ml Udc) 500,000 unit PO 4X/DAY [facility] Last Admin: 05/14/20 15:08 Dose: 500,000 unit Documented by: Ondansetron HCl (Ondansetron 4 Mg/2 Ml Vial) 4 mg IV Q8H PRN PRN PRN Reason: NAUSEA/VOMITING Sodium Chloride (0.9% Saline Lock 10 Ml Syringe) 10 - 40 ml IV UD PRN PRN Reason: SALINE FLUSH Last Admin: 05/10/20 22:27 Dose: 10 ml Documented by: Throat Lozenges (Benzocaine/Menthol 1 Lozenge) 1 lozenge MUCOUS MEM Q4H PRN PRN PRN Reason: sore throat Last Admin: 05/10/20 02:36 Dose: 1 lozenge Documented by: Zolpidem Tartrate (Zolpidem Tartrate 5 Mg Tablet) 5 mg PO QHS PRN PRN PRN Reason: SLEEP Medical Necessity - Tobacco Use Smoking Status: Never smoker Tobacco Use: Non-smoker Route of nutrition/ use of supplements: [] Nutritional Intake: [] IV Site: [] Murguia Catheter: [] - Assessment/Plan Antibiotics: [] Assessment/Plan: [] Active and Suspected Problems Shortness of breath (Acute) Nonproductive cough (Acute) Hypoxia with suspected covid - lymphopenia on admission. At risk for dvt/PE due to foot in cast, but neg CTA of chest 05/07. D-dimer was 1.2. Is on lovenox 40mg bid. On dex, remdesivir. Covid pcr neg 05/07, covid Ag neg 05/09. (+) covid Abs confirming the dx. Had reported sx for about 2 weeks at this point. D/c home today. Will follow as needed
--- NOTE | 2020-05-15 15:34 | CASEMGMT ---
MALLORY CM Discharge Phone call DC DATE: 03/14/2020 DC Disposition: Home with home oxygen through [employer] DC Diagnosis: COVID 19 Intro role of Case Mgmt to patient via phone. 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 He has a pulse oximeter and his oxygen is staying 91-94%. No questions re: instructions, isolation or medications. No care improvement suggestions were given. Gennaro VASQUES RN AC
== END 2020-05-14 18:15 | disposition home or self-care (01) | DRG 177 ==
LOC: ED 15:19 → MS2 16:53
PROVIDERS: Internal Medicine Infectious Disease; Admitting Provider Internal Medicine; Emergency Provider Emergency Medicine; PCP Family Medicine
DX: U07.1 COVID-19 (principal); J12.89 Other viral pneumonia; S82.842D Displaced bimalleolar fracture of left lower leg, subsequent encounter for closed fracture with routine healing; X58.XXXD Exposure to other specified factors, subsequent encounter; Z87.11 Personal history of peptic ulcer disease; M10.9 Gout, unspecified; R09.02 Hypoxemia; R06.00 Dyspnea, unspecified; R06.02 Shortness of breath
CPT/HCPCS: 36415; 71045; 71275; 73610; 80048; 80053; 82550; 83605; 84075; 84145; 84484; 85025; 85027; 85379; 85384; 86140; 86769; 87040; 87426; 87449; 87635; 93005; 96361; 96374; 97110; 97162; 97166; 97530; 97535; 97802; 99251; 99284; 99285; J7030; J7050; Q9967; A4216; G0463; U0003

== ENCOUNTER → 2020-05-15 07:10 | Outpatient (CLI) | payer MEDICARE, OTHER, SELFPAY ==
[2020-04-27 13:39] VITALS: BMI 34.4
[2020-05-09 09:31] LABS: Hemoglobin A1c 5.4 % (3.8-5.6)
[2020-05-10 14:01] VITALS: BMI 28.1
== END ==
PROVIDERS: PCP Family Medicine; Referring Provider Podiatrist Foot & Ankle Surgery; Visit Provider Podiatrist Foot & Ankle Surgery
DX: Z01.818 Encounter for other preprocedural examination (principal)
CPT/HCPCS: 83036

== ENCOUNTER → 2021-05-07 09:05 | Outpatient (CLI) | payer MEDICARE, OTHER, SELFPAY ==
[2021-05-07 10:02] LABS: Hemoglobin 13.4 g/dL (13.0-16.5); Mean Corp Hgb Conc 33.5 g/dL (32-36); Mean Corpuscular Hgb 34.4 pg (27.0-32.0); Mean Corpuscular Volume 102.6 fL (80-94); Mean Platelet Vol. 9.7 fl (6.2-12.0); Platelet Count 304 K/mm3 (150-450); RBC Distribution Width CV 13.4 % (11.6-14.6); RBC Distribution Width SD 51.3 fl (35.1-43.9); White Blood Count 5.3 K/mm3 (4.4-11.0)
[2021-05-07 10:33] LABS: Anion Gap 7 (5-15); BUN 28 mg/dL (7-18); BUN/Creat Ratio 25.2 RATIO (10-20); Chloride 107 mmol/L (98-107); Creatinine, Serum 1.11 mg/dL (0.70-1.30); EST Glomerular Filtration Rate 68 mL/min (>60); Est Glom Filt Rate - Afr Amer 82 mL/min (>60); Glucose 87 mg/dL (74-106); Potassium 4.3 mmol/L (3.5-5.1); Sodium Level 141 mmol/L (136-145)
== END ==
PROVIDERS: PCP Family Medicine; Referring Provider Urology; Visit Provider Urology
DX: N47.1 Phimosis (principal); Z79.899 Other long term (current) drug therapy
CPT/HCPCS: 36415; 80048; 85027

== ENCOUNTER → 2021-05-14 10:03 | Outpatient (CLI) | payer MEDICARE, OTHER, SELFPAY ==
--- NOTE | 2021-05-14 10:05 | EKG12_ITS ---
Test Reason : PREOP Blood Pressure : / mmHG Vent. Rate : 063 BPM Atrial Rate : 055 BPM P-R Int : 162 ms QRS Dur : 086 ms QT Int : 424 ms P-R-T Axes : 022 084 073 degrees QTc Int : 433 ms Sinus bradycardia with Premature atrial complexes Otherwise normal ECG Confirmed by RICH CALLAWAY, CARL ([id number]), advertising editor FRANCES AGUILERA ([id number]) on 05/15/2021 7:50:46 AM Referred By: Joe Ward Confirmed By:CARL VILLANUEVA MD
[2021-05-14 14:54] LABS: Probe Check PASS; Specimen Processing Control PASS
== END ==
LOC: PSN 10:04
PROVIDERS: PCP Family Medicine; Referring Provider Urology; Visit Provider Urology
DX: Z01.818 Encounter for other preprocedural examination (principal)
CPT/HCPCS: 87635; 93005; C9803; U0005; U0003

== ENCOUNTER 2021-06-18 08:45 | Outpatient (CLI) | payer OTHER, SELFPAY ==
--- NOTE | 2021-06-18 08:59 | BD_ITS ---
STUDY: DUAL ENERGY X-RAY ABSORPTIOMETRY / DXA REASON FOR EXAM: Male, 80 years old. M810 TECHNIQUE: Bone Mineral Density (BMD) measurements of lumbar spine and bilateral hips were obtained. COMPARISON: None. FINDINGS: Lumbar Spine (L1-L4): g/cm2 (0.841) / T-score (-2.3) / Z-score (-1.1) Findings are suggestive of osteopenia with a high fracture risk. Left Femur Total: g/cm2 (0.795) / T-score (-1.6) / Z-score (-0.5) Left Femoral Neck: g/cm2 (0.689) / T-score (-1.8) / Z-score (-0.2) Right Femur Total: g/cm2 (0.850) / T-score (-1.2) / Z-score (-0.1) Right Femoral Neck: g/cm2 (0.713) / T-score (-1.6) / Z-score (-0.1) BD/Dexa Bone Density Study IMPRESSION: The patient is considered osteopenic as outlined below according to World Bishop Organization (WHO) criteria with a moderate fracture risk. Reference Information: The T-score is the number of standard deviations above or below the standard which is normal for young adults at their peak bone mineral density. The World Health Organization (WHO) interprets the T-scores as follows: Above -1 Normal bone density Between -1 and -2.5 Osteopenia Equal to / or below -2.5 Osteoporosis As a practical clinical guideline, osteopenia may be graded as follows: Mild -1 through -1.5 Moderate -1.6 through -2.0 Severe -2.1 through -2.4 The Z-score is the number of standard deviations above or below age-matched controls. A Z-score of less than -1.5 would be considered abnormal. References: 1. NIH Osteoporosis and Related Bone Diseases www osteo.org 2. International Society for Clinical Densitometry www iscd.org 3. National Osteoporosis Foundation www nof.org Electronically Signed: Destin Herring MD at 12:51 EST , Service support ,
== END 2021-06-18 23:59 | disposition home or self-care (01) ==
PROVIDERS: PCP Family Medicine; Referring Provider Physician Assistant Medical; Visit Provider Physician Assistant Medical
DX: M81.0 Age-related osteoporosis without current pathological fracture (principal)
CPT/HCPCS: 77080

== ENCOUNTER 2022-04-28 00:06 | Inpatient (IN) | payer MEDICARE, SELFPAY ==
[2022-04-28] VITALS (16 sets, daily range): BP systolic 118–156; BP diastolic 47–101; PULSE 63–83; RESP 12–24; TEMP 36.5–37.2; O2SAT 93–97; BMI 32.1; BMI 28.2
--- NOTE | 2022-04-28 00:07 | RAD_ITS ---
INDICATION: Neuro deficit, acute, stroke suspected EXAMINATION/TECHNIQUE: X-RAY - XR Chest 1 View COMPARISON: 05/11/2020 FINDINGS: LINES/DEVICES: None. LUNGS: No consolidation, edema or effusion. No pneumothorax. MEDIASTINUM AND CARDIOVASCULAR STRUCTURES: Cardiac silhouette not enlarged. Central airways and mediastinal contour are unremarkable. BONES AND SOFT TISSUES: Ligamentous anchor in the right humeral head, similar compared to the prior. No acute osseous abnormality. Partially visualized opacified bilateral renal collecting system, likely related to recent intravenous contrast. RAD/Chest 1 View IMPRESSION: No acute cardiopulmonary disease. Electronically Signed: Marlon Valenzuela MD at 1:32 EST ,
--- NOTE | 2022-04-28 00:07 | CT_ITS ---
EXAM: CT brain without contrast HISTORY: Neuro deficit, acute, stroke suspected TECHNIQUE: CT Head Stroke Protocol W/O Contrast Injection A radiation dose optimization technique was used for this scan. COMPARISON: None. LIMITATIONS: None. BRAIN: Normal boykin/white matter differentiation. VENTRICLES: No hydrocephalus. Bilateral periventricular hypoattenuation, nonspecific however likely represents chronic microvascular ischemic changes. EXTRA-AXIAL SPACES: No hemorrhages, fluid collections, or masses. CALVARIUM/SKULL BASE: Normal. FACE/SINUSES: Visualized portions normal. SOFT TISSUES: Normal. OTHER: None. CT/STROKE Brain/Head without Cont IMPRESSION: No intracranial hemorrhage or acute territorial infarction. Senescent changes. Findings discussed with Dr. Aayush Chappell via phone at 9:21 PM PST 04/27/2022. N.B. : The above Results were Read Back by Marlon Valenzuela MD to Aayush Chappell DO, and understanding confirmed on 04/28/2022 00:25:58 (ET). Electronically Signed: Marlon Valenzuela MD at 0:24 EST ,
--- NOTE | 2022-04-28 00:08 | CT_ITS ---
EXAM: CTA Head and Neck W/ Contrast Injection (and W/O Contrast Images if performed) HISTORY: Neuro deficit, acute, stroke suspected TECHNIQUE: CTA Head and Neck W/ Contrast Injection (and W/O Contrast Images if performed) Noncontrast axial images were obtained of the brain and neck. NASCET criteria using the distal ICAs for comparison were used for evaluation of stenoses. 3D reconstructions were reviewed. A radiation dose optimization technique was used for this scan. COMPARISON: None. LIMITATIONS: None. CAROTID ARTERIES: Normal. ANTERIOR CEREBRAL ARTERIES: Normal. MIDDLE CEREBRAL ARTERIES: Normal. 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 BASILAR ARTERY: Normal. VERTEBRAL ARTERIES: Normal. VENOUS STRUCTURES: Normal. OTHER: None. AORTIC ARCH: Normal. CAROTID ARTERIES: Normal. VERTEBRAL ARTERIES: Normal. OTHER ARTERIES: Normal. VENOUS STRUCTURES: Normal. BONES/SOFT TISSUES: 3.5 cm irregular left thyroid nodule. OTHER: None. CT/STROKE CTA Head AND Neck W/Con IMPRESSION: No flow-limiting stenosis, aneurysm or dissection in the head and neck. Irregular left thyroid nodule measuring 3.5 cm, should be further characterized with thyroid ultrasound. Findings discussed with Dr. Aayush Chappell by phone at 9:47 PM PST 04/27/2022. N.B. : The above Results were Read Back by Marlon Valenzuela MD to Dr. Aayush Chappell, , and understanding confirmed on 04/28/2022 00:51:35 (ET). Electronically Signed: Marlon Valenzuela MD at 0:52 EST ,
--- NOTE | 2022-04-28 00:09 | ED.RN ---
phone call to [facility] at this time
--- NOTE | 2022-04-28 00:14 | ED.VIS.STROK ---
HPI History of Present Illness Chief Complaint: Stroke Alert Informant: EMS Limited: other (Aphasia) Onset/Context/Timing Onset: Today Context: Gradual Onset Timing: Continuous Quality and Location: Positive for Right Arm Weakness, Left Arm Weakness, Right Leg Weakness and Left Leg Weakness Associated Symptoms Associated Symptoms: Negative for Nausea or Vomiting Narrative Narrative: Patient presents with general weakness and aphasia that began today. Patient's last known well was earlier today at 1735. EMS was contacted because he was slurring his speech and having difficulty moving his arms and legs. Patient did not want to be transported at that time. Patient has continued to get worse and now is unable to speak at all. Patient does not follow commands. Patient is a poor informant due to his aphasia. [facility] Medical History (Updated 04/28/22 @ 01:[address] Aayush Chappell DO) Arthritis Back pain Gout Home Medications celecoxib 200 mg capsule 200 mg PO DAILY Arthritis 04/27/20 [History Last Taken 05/09/20 04:30] hydrocodone 10 mg-acetaminophen 325 mg tablet 1 tab PO TID PRN PRN Pain Score 1-10 04/27/20 [History Last Taken 05/09/20 08:00] zolpidem 5 mg tablet 5 mg PO QHS PRN PRN Sleep 04/27/20 [History Last Taken 05/08/20] allopurinol 300 mg tablet 300 mg PO DAILY GOUT 05/09/20 [History Last Taken 05/08/20] nystatin 100,000 unit/mL oral suspension 500,000 unit (5 mL) PO 4X/DAY ##20 05/14/20 [Rx Last Taken Unknown] vitamin E 200 unit capsule 200 unit PO DAILY 04/28/22 [History Last Taken Unknown] Allergy/AdvReac Type Severity Reaction Status Date / Time No Known Allergies Allergy Verified 04/28/22 00:13 Surgical History (Updated 04/28/22 @ 00:20 by Juan R Mcclure) History of ankle fusion Social History Smoking Status: Never smoker ROS ROS ED Review of Systems ROS Unobtainable: due to mental condition and due to mental status EXAM Physical Exam Const Vital Signs: 04/28/22 00:23 04/28/22 00:30 04/28/22 00:36 Temperature 97.7 F L 97.7 F L Temperature Source Temporal Temporal Pulse Rate 71 Respiratory Rate 24 H Blood Pressure 153/68 H Blood Pressure Mean 96 Pulse Ox 97 Oxygen Delivery Method Room Air Room Air 04/28/22 01:15 04/28/22 01:45 Temperature Temperature Source Pulse Rate 78 64 Respiratory Rate 22 H Blood Pressure 155/88 H 118/51 L Blood Pressure Mean 110 73 Pulse Ox 97 96 Oxygen Delivery Method Room Air Room Air Positive well nourished and well developed General Appearance ED: well developed and NAD HEENT Reports moist mucous membranes Eyes PERRL and EOMs intact bilaterally Neck supple and no JVD Resp normal respiratory effort and clear to auscultation bilaterally Cardio Rate: regular rate Rhythm: regular rhythm GI normal to inspection, nondistended, normoactive bowel sounds and soft to palpation Extremity normal to inspection General Extremety ED: Negative for deformity or edema General Extremity: Negative for deformity or edema Neuro CN's II-XII intact bilaterally Sensorium / Orientation: alert Speech: Negative for speech normal Motor Exam: general weakness NIHSS NIHSS Initial: 1a Level of Consciousness: 0 1b LOC Questions (Score 2 if aphasic/stupor): 2 2 Best Gaze (If aphasic, use reflexive mvmts.): 0 4 Facial Palsy: 0 5 Motor Arm Right (UN = amputation/fusion): 2 5 Motor Arm Left: 2 6 Motor Leg Right: 2 6 Motor Leg Left: 2 8 Sensory (Aphasia/stupor=0 or 1, coma=2): 1 9 Best Language: 2 10 Dysarthria (mute, coma=2, intubated=UN): 2 Total Score: 15 MDM MDM MDM Narrative Medical decision making narrative: Prehospital stroke alert was called. CT scan of the brain was obtained. There is no acute intracranial abnormality. This was interpreted by the radiologist and reviewed by myself. CTA of the head neck was obtained. There is no evidence of large vessel occlusion. This was interpreted by the radiologist and reviewed by myself. CBC was within normal limits. PT was INR and PTT were within normal limits. Basic metabolic profile was essentially within normal limits. Lactate was normal. High-sensitivity troponin was normal. Portable 1 view chest x-ray was obtained. On my interpretation, lung mcdaniel are clear. There is normal cardiac silhouette. Bony thorax is normal. There is no acute process noted. Radiologist also interpreted the x-ray and agrees. Case was discussed with the stroke neurologist at [facility]. She feels the patient needs to be admitted for stroke evaluation. Since there is no evidence of large vessel occlusion, the patient can be admitted locally. EKG was obtained. On my interpretation, it showed a normal sinus rhythm with a rate of 65. OR interval, QRS interval, and QTc intervals were all normal. [place]in was normal. There are no acute ST or T wave changes. Case was discussed with the hospitalist. He will admit the patient to PCU. Family understands and is agreeable with the plan. All questions were answered. Lab Data Attestation: I reviewed the patient's lab results. Labs: Laboratory Results - last 24 hr 04/28/22 04/28/22 04/28/22 00:10 00:10 00:10 WBC 7.4 RBC 3.90 L Hgb 13.3 Hct 40.8 MCV 104.6 H MCH 34.1 H MCHC 32.6 RDW Std Deviation 55.5 H RDW Coeff of Bola 14.3 Plt Count 283 MPV 9.3 Immature Gran % (Auto) 0.100 Neut % (Auto) 58.6 Lymph % (Auto) 30.5 [place] % (Auto) 6.7 Eos % (Auto) 3.8 Baso % (Auto) 0.3 Absolute Neuts (auto) 4.3 Absolute Lymphs (auto) 2.24 Nucleated RBC % 0 PT 13.5 INR 1.1 APTT 32.8 Sodium 140 Potassium 4.0 Chloride 104 Carbon Dioxide 27.0 Anion Gap 9 BUN 24 H Creatinine 1.07 Estim Creat Clear Calc 50.62 Est GFR (MDRD) Af Amer 85 Est GFR (MDRD) Non-Af 70 BUN/Creatinine Ratio 22.4 H Glucose 128 H Lactic Acid Calcium 9.0 Troponin I High Sens 7 Urine Color Urine Clarity Urine pH Ur Specific [place] Urine Protein Urine Glucose (UA) Urine Ketones Urine Occult Blood Urine Nitrite Urine Bilirubin Urine Urobilinogen Ur Leukocyte Esterase Urine RBC Urine WBC Ur Squamous Epith Cells Urine Bacteria Urine Mucus 04/28/22 04/28/22 00:10 01:27 WBC RBC Hgb Hct MCV MCH MCHC RDW Std Deviation RDW Coeff of Bola Plt Count MPV Immature Gran % (Auto) Neut % (Auto) Lymph % (Auto) [place] % (Auto) Eos % (Auto) Baso % (Auto) Absolute Neuts (auto) Absolute Lymphs (auto) Nucleated RBC % PT INR APTT Sodium Potassium Chloride Carbon Dioxide Anion Gap BUN Creatinine Estim Creat Clear Calc Est GFR (MDRD) Af Amer Est GFR (MDRD) Non-Af BUN/Creatinine Ratio Glucose Lactic Acid 1.7 Calcium Troponin I High Sens Urine Color Yellow Urine Clarity Clear Urine pH 6.0 Ur Specific [place] 1.010 Urine Protein Negative Urine Glucose (UA) Normal Urine Ketones Negative Urine Occult Blood Negative Urine Nitrite Negative Urine Bilirubin Negative Urine Urobilinogen Normal Ur Leukocyte Esterase Negative Urine RBC 0 SEEN Urine WBC 0 SEEN Ur Squamous Epith Cells 0 SEEN Urine Bacteria RARE Urine Mucus RARE Radiography Diagnostic Testing: Clinical Impression(s) from Imaging Studies Brain CT 04/28/22 00:07 IMPRESSION: No intracranial hemorrhage or acute territorial infarction. Senescent changes. Findings discussed with Dr. Aayush Chappell via phone at 9:21 PM PST 04/27/2022. N.B. : The above Results were Read Back by Marlon Valenzuela MD to Aayush Chappell DO, and understanding confirmed on 04/28/2022 00:25:58 (ET). Electronically Signed: Marlon Valenzuela MD at 0:24 EST , Chest X-Ray 04/28/22 00:07 IMPRESSION: No acute cardiopulmonary disease. Electronically Signed: Marlon Valenzuela MD at 1:32 EST , Head/Neck CTA 04/28/22 00:08 IMPRESSION: No flow-limiting stenosis, aneurysm or dissection in the head and neck. Irregular left thyroid nodule measuring 3.5 cm, should be further characterized with thyroid ultrasound. Findings discussed with Dr. Aayush Chappell by phone at 9:47 PM PST 04/27/2022. N.B. : The above Results were Read Back by Marlon Valenzuela MD to Dr. Aayush Chappell DO, and understanding confirmed on 04/28/2022 00:51:35 (ET). Electronically Signed: Marlon Valenzuela MD at 0:52 EST , ADDENDUM: 04/28/22 0059 IMPRESSION: No flow-limiting stenosis, aneurysm or dissection in the head and neck. Irregular left thyroid nodule measuring 3.5 cm, should be further characterized with thyroid ultrasound. Findings discussed with Dr. Aayush Chappell by phone at 9:47 PM PST 04/27/2022. N.B. : The above Results were Read Back by Marlon Valenzuela MD to Dr. Aayuhs Chappell, , and understanding confirmed on 04/28/2022 00:51:35 (ET). 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
[2022-04-28 00:19] LABS: Absolute Lymphocyte Count 2.24 X10^3/uL (0.83-4.51); Absolute Neutrophil Count 4.3 X10^3/uL (2.0-7.7); Basophil# 0.02 X10^3/uL; Basophil% 0.3 % (0-1); Eosinophil# 0.28 X10^3/uL; Eosinophils% 3.8 % (0-5); Hematocrit 40.8 % (40-54); Hemoglobin 13.3 g/dL (13.0-16.5); Lymphocyte # 2.24 X10^3/ul (0.83-4.51); Lymphocyte % 30.5 % (19-41); Mean Corp Hgb Conc 32.6 g/dL (32-36); Mean Corpuscular Hgb 34.1 pg (27.0-32.0); Mean Corpuscular Volume 104.6 fL (80-94); Mean Platelet Vol. 9.3 fl (6.2-12.0); Monocyte# 0.49 X10^3/uL; Monocyte% 6.7 % (0-10); NRBC Flagged by Analyzer 0 % (0-5); Neutrophil # 4.31 X10^3/uL (2.7-7.7); Neutrophil % 58.6 % (47-70); Platelet Count 283 K/mm3 (150-450); RBC Distribution Width CV 14.3 % (11.6-14.6); RBC Distribution Width SD 55.5 fl (35.1-43.9); White Blood Count 7.4 K/mm3 (4.4-11.0)
[2022-04-28 00:28] LABS: International Normalized Ratio 1.1; Prothrombin Time (Protime)PT. 13.5 SECONDS (11.7-14.9)
[2022-04-28 00:29] LABS: Partial Thromboplast Time 32.8 Seconds (24.1-36.2)
--- NOTE | 2022-04-28 00:31 | ED.RN ---
osu beaming in at this time
[2022-04-28 00:36] LABS: Anion Gap 9 (5-15); BUN 24 mg/dL (7-18); BUN/Creat Ratio 22.4 RATIO (10-20); Chloride 104 mmol/L (98-107); Creatinine, Serum 1.07 mg/dL (0.70-1.30); EST Glomerular Filtration Rate 70 mL/min (>60); Est Glom Filt Rate - Afr Amer 85 mL/min (>60); Estimated Creatinine Clearance 50.62 ml/min; Glucose 128 mg/dL (74-106); Sodium Level 140 mmol/L (136-145); Troponin-I HS 7 pg/mL (3.0-78.0)
[2022-04-28 00:47] LABS: Lactic Acid 1.7 mmol/L (0.4-1.9)
[2022-04-28] MEDS: Morphine 4 MG/ML Syringe IV (00:59)
--- NOTE | 2022-04-28 01:30 | NURSING ---
This RN and MALLORY Llanos attempted to collect covid swab per MD order. Pt was not cooperative and combative, pt and daughter in room told this RN and MALLORY Llanos that the pt does not have covid and they do not want any further attempts made to collect the sample. MD aware.
[2022-04-28 01:32] LABS: Red Blood Cells-Urine 0 SEEN /hpf (0-5); Squamous Epithelial Cells - UA 0 SEEN /hpf (0-5); White Blood Cells 0 SEEN /hpf (0-5)
[2022-04-28 01:34] LABS: Color, Urine Yellow (Yellow); Glucose, Dipstick Normal (Normal); Ketone-Dipstick Negative (Negative); Leukocyte Esterase-Dipstick Negative /ul (Negative); Nitrite-Dipstick Negative (Negative); Occult Blood-Urine Negative /ul (Negative); Protein-Dipstick Negative (Negative); Urine Bilirubin Dipstick Negative (Negative); Urine Clarity Clear (Clear); Urine Urobilinogen Normal (Normal)
[2022-04-28 01:39] LABS: Bacteria RARE /hpf (None Seen); Mucous, Urine RARE /hpf (<or=2+)
--- NOTE | 2022-04-28 01:49 | EKG12_ITS ---
Test Reason : DYSRHYTHMIA Blood Pressure : / mmHG Vent. Rate : 065 BPM Atrial Rate : 277 BPM P-R Int : 000 ms QRS Dur : 084 ms QT Int : 422 ms P-R-T Axes : 005 073 075 degrees QTc Int : 438 ms Atrial flutter Abnormal ECG Confirmed by EVENS CALLAWAY, EZE ([id number]), development editor FRANCES AGUILERA ([id number]) on 04/28/2022 9:13:24 AM Referred By: SUSIE Confirmed By:EZE HORNER MD
--- NOTE | 2022-04-28 02:23 | PCM.HP.STD ---
HPI - General General Date of Admission: 04/28/22 Date of Service: 04/28/22 Chief Complaint: CONFUSION HPI Narrative RUTH GUZMAN, is a 81 M with a significant history of arthritis; and gout who presents to the emergency department with confusion. History was taken from patient's and family who was at the bedside. Reportedly on 04/27/2022 at about 1:30 PM to 3 PM patient was noted to be well. He then slept and woke up around 5:30 PM. When he woke up patient was confused. At dinnertime patient realized that patient could not talk. Paramedics were initially called but patient was uncooperative so he could not be brought to the hospital. Patient was too weak that he could not get up. Paramedics were called again and patient was brought to the hospital. Family denies any focal weakness. At the emergency department patient was moaning and groaning. [facility] Medical History Arthritis Back pain Gout Home Medications celecoxib 200 mg capsule 200 mg PO DAILY Arthritis 04/27/20 [History Last Taken 05/09/20 04:30] hydrocodone 10 mg-acetaminophen 325 mg tablet 1 tab PO TID PRN PRN Pain Score 1-10 04/27/20 [History Last Taken 05/09/20 08:00] zolpidem 5 mg tablet 5 mg PO QHS PRN PRN Sleep 04/27/20 [History Last Taken 05/08/20] allopurinol 300 mg tablet 300 mg PO DAILY GOUT 05/09/20 [History Last Taken 05/08/20] nystatin 100,000 unit/mL oral suspension 500,000 unit (5 mL) PO 4X/DAY ##20 05/14/20 [Rx Last Taken Unknown] vitamin E 200 unit capsule 200 unit PO DAILY 04/28/22 [History Last Taken Unknown] Allergy/AdvReac Type Severity Reaction Status Date / Time No Known Allergies Allergy Verified 04/28/22 00:13 Family History Other Dementia Leukemia Surgical History History of ankle fusion Social History Smoking Status: Never smoker ROS Review of Systems ROS Unobtainable: other Details: Pertinent positives and pertinent negatives that could be provided by patient's family is as noted in HPI. All other systems were reviewed and patient's family did not know or they were negative. Vital Signs Vital Signs Vital Signs: 04/28/22 00:23 04/28/22 00:30 04/28/22 00:36 Temperature 97.7 F L 97.7 F L Temperature Source Temporal Temporal Pulse Rate 71 Respiratory Rate 24 H Blood Pressure 153/68 H Blood Pressure Mean 96 Pulse Ox 97 Oxygen Delivery Method Room Air Room Air 04/28/22 01:15 04/28/22 01:45 Temperature Temperature Source Pulse Rate 78 64 Respiratory Rate 22 H Blood Pressure 155/88 H 118/51 L Blood Pressure Mean 110 73 Pulse Ox 97 96 Oxygen Delivery Method Room Air Room Air Weight Weight: 93 kg Body Mass Index (BMI) 32.1 Physical Exam Narrative Physical exam: General: Well-nourished, well-developed. Head: Normocephalic, atraumatic, no tenderness Eyes: Does not open eyes for examination. ENT, no trauma, moist mucous membranes, no rhinorrhea CVS: Regular rate and rhythm. S1-S2 present. No murmur, gallop or rub. Respiratory : clear to auscultation bilaterally, chest wall nontender, no wheezing Abdomen: Soft, nontender, nondistended, normal bowel sounds, no masses : Deferred Back: Nontender, no CVA tenderness Extremities: Does not follow commands to check range of motion. Skin: Normal color, no trauma, abrasions Neuro: Alert. Does not follow commands to check cranial nerves. Psychiatry: Agitated. Moaning and groaning. Results Lab / Micro Data Result Diagrams: 04/28/22 00:10 04/28/22 00:10 Labs: Laboratory Results - last 24 hr 04/28/22 00:10: WBC 7.4, RBC 3.90 L, Hgb 13.3, Hct 40.8, MCV 104.6 H, MCH 34.1 H, MCHC 32.6, RDW Std Deviation 55.5 H, RDW Coeff of Bola 14.3, Plt Count 283, MPV 9.3, Immature Gran % (Auto) 0.100, Neut % (Auto) 58.6, Lymph % (Auto) 30.5, [place] % (Auto) 6.7, Eos % (Auto) 3.8, Baso % (Auto) 0.3, Absolute Neuts (auto) 4.3, Absolute Lymphs (auto) 2.24, Nucleated RBC % 0 04/28/22 00:10: PT 13.5, INR 1.1, APTT 32.8 04/28/22 00:10: Sodium 140, Potassium 4.0, Chloride 104, Carbon Dioxide 27.0, Anion Gap 9, BUN 24 H, Creatinine 1.07, Estim Creat Clear Calc 50.62, Est GFR (MDRD) Af Amer 85, Est GFR (MDRD) Non-Af 70, BUN/Creatinine Ratio 22.4 H, Glucose 128 H, Calcium 9.0, Troponin I High Sens 7 04/28/22 00:10: Lactic Acid 1.7 04/28/22 01:27: Urine Color Yellow, Urine Clarity Clear, Urine pH 6.0, Ur Specific [place] 1.010, Urine Protein Negative, Urine Glucose (UA) Normal, Urine Ketones Negative, Urine Occult Blood Negative, Urine Nitrite Negative, Urine Bilirubin Negative, Urine Urobilinogen Normal, Ur Leukocyte Esterase Negative, Urine RBC 0 SEEN, Urine WBC 0 SEEN, Ur Squamous Epith Cells 0 SEEN, Urine Bacteria RARE, Urine Mucus RARE Radiology Impression Brain CT 04/28/22 00:07 IMPRESSION: No intracranial hemorrhage or acute territorial infarction. Senescent changes. Findings discussed with Dr. Aayush Chappell via phone at 9:21 PM PST 04/27/2022. N.B. : The above Results were Read Back by Marlon Valenzuela MD to Aayush Chappell DO, and understanding confirmed on 04/28/2022 00:25:58 (ET). Electronically Signed: Marlon Valenzuela MD at 0:24 EST , Chest X-Ray 04/28/22 00:07 IMPRESSION: No acute cardiopulmonary disease. Electronically Signed: Marlon Valenzuela MD at 1:32 EST Reading Location ID and State: [facility] / [place] Tel , Service support , Head/Neck CTA 04/28/22 00:08 IMPRESSION: No flow-limiting stenosis, aneurysm or dissection in the head and neck. Irregular left thyroid nodule measuring 3.5 cm, should be further characterized with thyroid ultrasound. Findings discussed with Dr. Aayush Chappell by phone at 9:47 PM [facility] 04/27/2022. N.B. : The above Results were Read Back by Marlon Valenzuela MD to Dr. Aayush Chappell, DO, and understanding confirmed on 04/28/2022 00:51:35 (ET). Electronically Signed: Marlon Valenzuela MD at 0:52 EST , ADDENDUM: 04/28/22 0059 IMPRESSION: No flow-limiting stenosis, aneurysm or dissection in the head and neck. Irregular left thyroid nodule measuring 3.5 cm, should be further characterized with thyroid ultrasound. Findings discussed with Dr. Aayush Chappell by phone at 9:47 PM [facility] 04/27/2022. N.B. : The above Results were Read Back by Marlon Valenzuela MD to Dr. Aayush Chappell, , and understanding confirmed on 04/28/2022 00:51:35 (ET). Electronically Signed: Marlon Valenzuela MD at 0:52 EST , Assessment & Plan Assessment/Plan (1) Aphasia: (2) Stroke: (3) Encephalopathy acute: PLAN: Plan Aphasia/stroke/acute metabolic encephalopathy Serial NINDS NIH Scale ordered Brain CT; and head and neck CTA was visualized and independently interpreted. There is no brain bleed or hemodynamically significant stenosis. I agree with radiologist interpretation Urinalysis negative. Lipid profile and A1c ordered. Family does not want Physical therapy, occupational therapy and speech therapy to work with patient at this time. Family is seeking that cause of acute disease be only investigated and patient should be made calm. Per family decision may change along the line. Shared decision with family to order morphine and haldol Urine drug screen ordered With aphasia has automatically failed swallow eval. Yet family does not want speech therapy at this time. NPO orderd Rectal aspirin ordered. Consider statin when no longer npo Permissive hypertension. Control blood pressure with labetalol for systolic blood pressure of more than 220 or diastolic blood pressure of more than 120. MRI of head; brain; and neck. Echocardiogram ordered. Thyroid nodule CTA head/neck with irregular left thyroid nodule and for which ultrasound was recommended. Consider ultrasound when patient is less agitated. DVT Prophylaxis: Family is refusing Brian hose; SCD and Lovenox. Per family patient will not tolerate SCD because of restless legs. Charges/Coding Visit Charges Inpatient E&M: 57193 Init Hosp L3
--- NOTE | 2022-04-28 03:39 | MRI_ITS ---
HISTORY: CVA. TECHNIQUE: Multiplanar and multisequence MR images of the brain were obtained without contrast. 281 images. COMPARISON: CT earlier same day. FINDINGS: BRAIN PARENCHYMA: Mild foci and small zones of increased T2 FLAIR signal in the bilateral cerebral white matter. No abnormal focus of restricted diffusion. No acute intracranial hemorrhage identified. CSF SPACES: Mild generalized volume loss. No significant midline shift or other mass effect.No extra-axial fluid collection. VASCULAR SYSTEM: Major intracranial flow voids are maintained. PARANASAL SINUSES AND MASTOID AIR CELLS: No significant air fluid levels. ORBITS: Left lens resection. MRI/Brain without Contrast IMPRESSION: No evidence for acute infarct. Mild chronic involutional and white matter changes. Electronically Signed: Lexie West MD at 10:11 EST ,
--- NOTE | 2022-04-28 03:39 | ECHOD_ITS ---
Reason For Study: TIA/CVA Procedure This was a 2D Doppler, Color Flow transthoracic echocardiogram. Exam performed portable in patient room. Left Ventricle Normal LV size. Left ventricular systolic function is normal. The estimated ejection fraction is 60 %. Stage 1 diastolic dysfunction. No regional wall motion abnormalities noted. Right Ventricle Normal RV size. Normal systolic function. Atria Normal left atrium. Normal right atrium. Bubble contrast study negative for right to left interatrial shunt. Mitral Valve Bileaflet diffuse mitral valve thickening. Mild-Moderate (1-2+) mitral valve insufficiency. Tricuspid Valve Normal tricuspid valve. Mild (1+) tricuspid valve insufficiency. Pulmonary artery systolic pressure is 30 mmHg. Great Vessels Normal aortic root. Pericardium/Pleural No pericardial effusion. Medication Performed a rapid injection of agitated mix of 9 cc saline and 1cc air to assess for atrial septal defect. MMode/2D Measurements & Calculations LVIDd: 4.6 cm IVSd: 0.94 cm Ao root diam: 3.3 cm LVIDs: 2.7 cm LVPWd: 0.99 cm RVDd: 3.4 cm FS: 41.5 % LAV(MOD-bp): 41.0 ml LVAd ap4: 28.5 cm2 SV(MOD-sp4): 53.3 ml LAV(MOD-bp) Indexed: 20.7 ml/m2 LVLd ap4: 8.0 cm LAV(MOD-sp2): 46.9 ml EDV(MOD-sp4): 80.6 ml LAV(MOD-sp4): 33.1 ml EDV(sp4-el): 85.9 ml LVAs ap4: 14.1 cm2 LVLs ap4: 6.0 cm ESV(MOD-sp4): 27.3 ml ESV(sp4-el): 28.3 ml EF(MOD-sp4): 66.1 % EF(sp4-el): 67.0 % SV(sp4-el): 57.5 ml LA dimension(2D): 3.3 cm LA A4 area: 14.3 cm2 RA A4 area: 9.2 cm2 Time Measurements MV dec time: 0.25 sec Doppler Measurements & Calculations MV E max trino: 79.7 cm/sec Lat Peak E' Trino: 9.8 cm/sec Med Peak E' Trino: 7.9 cm/sec MV A max trino: 97.8 cm/sec E/E' lat: 8.2 E/E' med: 10.1 MV E/A: 0.82 Ao V2 max: 154.4 cm/sec LV V1 max: 119.9 cm/sec PA V2 max: 114.3 cm/sec Ao max P.5 mmHg LV V1 max P.7 mmHg Ao V2 mean: 102.1 cm/sec Ao mean P.6 mmHg Ao V2 VTI: 28.8 cm TR max trino: 255.8 cm/sec TR max P.2 mmHg ECHO/Echo Complete Interpretation Summary Normal LV size. Left ventricular systolic function is normal. The estimated ejection fraction is 60 %. Mild-Moderate (1-2+) mitral valve insufficiency. Bubble contrast study negative for right to left interatrial shunt. Stage 1 diastolic dysfunction. Mild (1+) tricuspid valve insufficiency. Ordering Physician: Jeff Carlin Referring Physician: Choco Burgos Performed By: Zohreh Obando, YASIR, RVT
[2022-04-28] MEDS: Morphine 2 MG/ML Syringe IV ×2 (03:51→09:05)
[2022-04-28] MEDS: Haloperidol Lactate 5 MG/ML Vial 2 MG IV ×2 (04:11→09:04)
[2022-04-28 04:30] LABS: Amphetamine Urine VISTA NEGATIVE (<1000 ng/mL); Barbiturate Urine VISTA NEGATIVE (< 200 ng/mL); Benzodiazepine Urine VISTA NEGATIVE (< 200 ng/mL); Cocaine Urine VISTA NEGATIVE (< 300 ng/mL); Ecstacy Urine VISTA NEGATIVE (< 500 ng/mL); Methadone Urine VISTA NEGATIVE (< 300 ng/mL); PCP Urine VISTA NEGATIVE (< 25 ng/mL); THC Urine VISTA NEGATIVE (< 50 ng/mL); Vista UDS pH Range 6
[2022-04-28 06:14] LABS: Absolute Lymphocyte Count 0.76 X10^3/uL (0.83-4.51); Absolute Neutrophil Count 4.3 X10^3/uL (2.0-7.7); Basophil# 0.02 X10^3/uL; Basophil% 0.3 % (0-1); Eosinophil# 0.01 X10^3/uL; Eosinophils% 0.2 % (0-5); Hematocrit 39.9 % (40-54); Hemoglobin 13.5 g/dL (13.0-16.5); Lymphocyte # 0.76 X10^3/ul (0.83-4.51); Lymphocyte % 13.1 % (19-41); Mean Corp Hgb Conc 33.8 g/dL (32-36); Mean Corpuscular Hgb 34.8 pg (27.0-32.0); Mean Corpuscular Volume 102.8 fL (80-94); Mean Platelet Vol. 9.3 fl (6.2-12.0); Monocyte# 0.63 X10^3/uL; Monocyte% 10.9 % (0-10); NRBC Flagged by Analyzer 0 % (0-5); Neutrophil # 4.34 X10^3/uL (2.7-7.7); Neutrophil % 75.2 % (47-70); Platelet Count 271 K/mm3 (150-450); RBC Distribution Width CV 14.1 % (11.6-14.6); RBC Distribution Width SD 53.4 fl (35.1-43.9); Red Blood Count 3.88 M/mm3 (4.6-6.2); White Blood Count 5.8 K/mm3 (4.4-11.0)
[2022-04-28 06:44] LABS: AST(SGOT) 11 U/L (15-37); Alanine Aminotransfer ALT/SGPT 20 U/L (16-61); Albumin, Serum 3.5 g/dL (3.2-5.0); Alkaline Phosphatase 80 U/L (45-117); Anion Gap 5 (5-15); BUN 19 mg/dL (7-18); BUN/Creat Ratio 19.5 RATIO (10-20); Calcium,Total 8.6 mg/dL (8.5-10.1); Chloride 104 mmol/L (98-107); Cholesterol 126 mg/dL (200); Creatinine, Serum 0.98 mg/dL (0.70-1.30); EST Glomerular Filtration Rate 78 mL/min (>60); Est Glom Filt Rate - Afr Amer 95 mL/min (>60); Estimated Creatinine Clearance 59.12 ml/min; Globulin 3.6 g/dL (2.2-4.2); Glucose 127 mg/dL (74-106); High Density Lipoprotein 28 mg/dL; Protein, Total 7.1 g/dL (6.4-8.2); Sodium Level 137 mmol/L (136-145); Triglycerides 135 mg/dL; Very Low Density Lipoprotein 27 mg/dL (5-40)
--- NOTE | 2022-04-28 07:40 | PN.HOSP_ITS ---
Subjective Subjective Follow-up on acute encephalopathy: Patient was seen and examined. Patient's daughter who is a power of workers compensation defense attorney [facility] was at the bedside. Patient remains confused. He received morphine and Haldol this morning. History taken from the daughter and his best friend at the bedside was that patient has no cognitive impairment. He has history of chronic back pain and chronic left foot pain status post surgery with plating. He recently has been out of his surgical boots. Patient is on Vicodin typically. The last time the daughter spoke to him with a day before admission and he sounded normal to her. MRI of the brain has been unremarkable. Urinalysis has been unremarkable and urine tox was positive for opiate. ABGs was unremarkable. Objective Data Objective Data Vital Signs: Vital Signs Temp Pulse Resp BP Pulse Ox O2 Del Method 98.7 F 83 18 156/101 H 93 Room Air 04/28/22 04:00 04/28/22 04:02 04/28/22 04:00 04/28/22 04:00 04/28/22 04:55 04/28/22 05:44 Oxygen Delivery Method Room Air Weight: 86.6 kg Body Mass Index (BMI) 28.2 Lab / Micro Data Result Diagrams: 04/28/22 05:58 04/28/22 05:58 Labs: Laboratory Results - last 24 hr 04/28/22 00:10: WBC 7.4, RBC 3.90 L, Hgb 13.3, Hct 40.8, MCV 104.6 H, MCH 34.1 H , MCHC 32.6, RDW Std Deviation 55.5 H, RDW Coeff of Bola 14.3, Plt Count 283, MPV 9.3, Immature Gran % (Auto) 0.100, Neut % (Auto) 58.6, Lymph % (Auto) 30.5, [place] % (Auto) 6.7, Eos % (Auto) 3.8, Baso % (Auto) 0.3, Absolute Neuts (auto) 4.3, Absolute Lymphs (auto) 2.24, Nucleated RBC % 0 04/28/22 00:10: PT 13.5, INR 1.1, APTT 32.8 04/28/22 00:10: Sodium 140, Potassium 4.0, Chloride 104, Carbon Dioxide 27.0, Anion Gap 9, BUN 24 H, Creatinine 1.07, Estim Creat Clear Calc 50.62, Est GFR (MDRD) Af Amer 85, Est GFR (MDRD) Non-Af 70, BUN/Creatinine Ratio 22.4 H, Glucose 128 H, Calcium 9.0, Troponin I High Sens 7 04/28/22 00:10: Lactic Acid 1.7 04/28/22 01:27: Urine Color Yellow, Urine Clarity Clear, Urine pH 6.0, Ur Specific [place] 1.010, Urine Protein Negative, Urine Glucose (UA) Normal, Urine Ketones Negative, Urine Occult Blood Negative, Urine Nitrite Negative, Urine Bilirubin Negative, Urine Urobilinogen Normal, Ur Leukocyte Esterase Negative, Urine RBC 0 SEEN, Urine WBC 0 SEEN, Ur Squamous Epith Cells 0 SEEN, Urine Bacteria RARE, Urine Mucus RARE 04/28/22 01:27: Urine Opiates Screen POSITIVE H, Urine Methadone Screen NEGATIVE, Ur Barbiturates Screen NEGATIVE, Ur Phencyclidine Scrn NEGATIVE, Ur Amphetamines Screen NEGATIVE, MDMA (Ecstasy) Screen NEGATIVE, U Benzodiazepines Scrn NEGATIVE, Urine Cocaine Screen NEGATIVE, U Cannabinoids Screen NEGATIVE, Ur Drug Screen Comment 04/28/22 05:58: WBC 5.8, RBC 3.88 L, Hgb 13.5, Hct 39.9 L, MCV 102.8 H, MCH 34.8 H, MCHC 33.8, RDW Std Deviation 53.4 H, RDW Coeff of Bola 14.1, Plt Count 271, MPV 9.3, Immature Gran % (Auto) 0.300, Neut % (Auto) 75.2 H, Lymph % (Auto) 13.1 L, [place] % (Auto) 10.9 H, Eos % (Auto) 0.2, Baso % (Auto) 0.3, Absolute Neuts (auto) 4.3, Absolute Lymphs (auto) 0.76 L, Nucleated RBC % 0 04/28/22 05:58: Sodium 137, Potassium 4.0, Chloride 104, Carbon Dioxide 28.0, Anion Gap 5, BUN 19 H, Creatinine 0.98, Estim Creat Clear Calc 59.12, Est GFR (MDRD) Af Amer 95, Est GFR (MDRD) Non-Af 78, BUN/Creatinine Ratio 19.5, Glucose 127 H, Calcium 8.6, Total Bilirubin 0.40, AST 11 L, ALT 20, Alkaline Phosphatase 80, Total Protein 7.1, Albumin 3.5, Globulin 3.6, Albumin/Globulin Ratio 1.0, Triglycerides 135, Cholesterol 126, LDL Cholesterol 71, VLDL Cholesterol 27, HDL Cholesterol 28 L Micro: Microbiology 04/28/22 04:30 Nasal Secretion SARS-CoV-2 & FLU Antigen (Rapid) - Final Radiography Diagnostic Testing: Radiology Impression Brain CT 04/28/22 00:07 IMPRESSION: No intracranial hemorrhage or acute territorial infarction. Senescent changes. Findings discussed with Dr. Aayush Chappell via phone at 9:21 PM PST 04/27/2022. N.B. : The above Results were Read Back by Marlon Valenzuela MD to Aayush Chappell DO, and understanding confirmed on 04/28/2022 00:25:58 (ET). Electronically Signed: Marlon Valenzuela MD at 0:24 EST Reading Location ID and State: [facility] / [place] [employer] , Service support , Chest X-Ray 04/28/22 00:07 IMPRESSION: No acute cardiopulmonary disease. Electronically Signed: Marlon Valenzuela MD at 1:32 EST , Head/Neck CTA 04/28/22 00:08 IMPRESSION: No flow-limiting stenosis, aneurysm or dissection in the head and neck. Irregular left thyroid nodule measuring 3.5 cm, should be further characterized with thyroid ultrasound. Findings discussed with Dr. Aayush Chappell by phone at 9:47 PM PST 04/27/2022. N.B. : The above Results were Read Back by Marlon Valenzuela MD to Dr. Aayush Chappell, , and understanding confirmed on 04/28/2022 00:51:35 (ET). Electronically Signed: Marlon Valenzuela MD at 0:52 EST , ADDENDUM: 04/28/22 0059 IMPRESSION: No flow-limiting stenosis, aneurysm or dissection in the head and neck. Irregular left thyroid nodule measuring 3.5 cm, should be further characterized with thyroid ultrasound. Findings discussed with Dr. Aayush Chappell by phone at 9:47 PM PST 04/27/2022. N.B. : The above Results were Read Back by Marlon Valenzuela MD to Dr. Aayush Chappell DO, and understanding confirmed on 04/28/2022 00:51:35 (ET). Electronically Signed: Marlon Valenzuela MD at 0:52 EST , Physical Exam Narrative Physical exam: General: Alert, confused, not oriented to person, place or time HEENT: Atraumatic Oral: Moist Mucosa Neck: Supple Lungs: Diminished to auscultation Cardiovascular: HS I+II, regular, no murmurs Abdomen: Bowel Sounds Present, Soft, Non Tender Extremities: No edema Skin: No rashes, No breakdown Neurological: Confused, aphasic Psych/Mental Status: Appropriate Assessment & Plan Assessment/Plan (1) Encephalopathy acute: PLAN: Plan 1. Acute encephalopathy, unclear etiology, patient now in hypoactive delirium Patient is not alert oriented to person, place or time. He is said to be very active usually. This is said to have happened suddenly. He was said to be agitated soon after admission CT of the head, CTA of the head and neck, MRI brain have been unremarkable for acute stroke Chest x-ray and UA are negative for infectious etiology Urine tox is unremarkable. COVID-19 PCR is negative. ABGs are negative. LFTs unremarkable TSH is 2.51, vitamin B12 is 295 Will check ammonia levels, stat EEG, x-ray of the left ankle as patient seems to wince in pain We will continue to keep patient n.p.o., IV fluids?D5 half-normal saline Continue scheduled Tylenol 650 rectally 3 times daily, morphine as needed Teleneurology consult 2. Chronic back pain, history of fracture of the ankle, bimalleolar, on the left Tenderness on exam of both joints Would continue with Lidoderm patches to the back 3. History of gout, will continue on allopurinol if able to eat 4. DVT PPx- Heparin SC Charges/Coding Visit Charges Inpatient E&M: 02383 Subs Hosp L3
[2022-04-28 08:21] LABS: Hemoglobin A1c 5.8 % (3.8-5.6)
[2022-04-28] MEDS: 0.9% Saline Lock 10 ML Syringe IV (09:04)
[2022-04-28] MEDS: Aspirin 300 MG Suppository RC (12:01)
[2022-04-28 12:43] LABS: Vitamin B12 295 pg/mL (211-911)
[2022-04-28 12:48] LABS: Thyroid Stim Hormone (TSH) 2.51 uIU/mL (0.358-3.74)
--- NOTE | 2022-04-28 13:03 | TELEMED_ITS ---
[facility] Telemed has confirmed receipt of a request for visit. This document confirms receipt of the order initiating the consult. To find the results of the consultation, please view the patient's reports for the scanned Telemed Consult.
--- NOTE | 2022-04-28 13:25 | CASEMGMT ---
RN CM CHEMICAL LABORATORY TESTER CM to room for initial transition planning/care coordination assessment. Pt is resting in bed, confused, and restless. Staff @ bedside, preparing to do EEG. Zohreh Roman, @ bedside. MALLORY ABREU introduced self and role at [facility]. DtrZohreh, voices understanding and consents to assessment at this time. She states she and her sister, Joann, are POA's. Care providers, pharmacy, and demographics verified/updated at this time. PCP: Dr Burgos Specialists: none at this time Preferred Pharmacy: [facility] Insurance: [facility] Prescription Benefit: Yes Living Will/HPOA: Pt has LW and HCPOA. HCPOA on paperchart. Primary HCPOA listed is pt's late . 1st alternative is dtrZohreh. 2nd alternative is dtrJoann. LNOK: Dtr's/POA's: Zohreh and Joann. Pt is to their step-mother, Joshua. Living Arrangements: Lives w/Joshua in 2-story home w/one threshold step to enter. Bedroom and bathroom on 2nd floor and bathroom also on main floor. Pt was independent w/ADL's and IADL's prior to hospitalization and uses no DME to ambulated. Transportation: Pt was driving prior to hospitalization DME: Zohreh states pt used no DME prior to hospitalization. He does have the following DME available, if needed: walker, shower chair, W/C, knee scooter, toilet riser. Pt also has a BP cuff and pulse ox. HHC/SNF: No hx of either. Zohreh states would like her step-mother, Joshua, to be involved in decision making for discharge planning, when the time comes. Pt remains confused and origin of confusion is unknown at this time. CM to follow for discharge planning. PT/OT evals pending. PLAN: TBD by pt's progress, treatment plan, and progress w/therapy. Naren VASQUES RN, CM
--- NOTE | 2022-04-28 14:15 | RAD_ITS ---
HISTORY: Severe pain -- Portable. TECHNIQUE: XR Ankle 2 Views. COMPARISON: 05/12/2020. FINDINGS: BONES : Cortical plate and screw fixation of chronic nondisplaced distal fibular fracture. Mild periosteal reaction of the distal tibia medially with arthrodesis hardware at the ankle joint. Chronic small sclerosis in the calcaneus with mild calcaneal enthesopathy and ossification of the distal Achilles tendon again noted. JOINTS: No dislocation. Sclerosis and joint space narrowing of the tibiotalar joint. Degenerative changes noted. SOFT TISSUES: Mild soft tissue swelling. RAD/Ankle 2 Views IMPRESSION: Chronic posttraumatic and postoperative changes of the left ankle as above. Soft tissue swelling. Electronically Signed: Lexie West MD at 14:49 EST ,
[2022-04-28 14:30] LABS: Allen Test Y; Blood Gas Specimen Type ART; O2 Delivery Device ROOM AIR; SITE R RADIAL
[2022-04-28 14:31] LABS: Base Excess 1 mmol/L (-2 to +2); Bicarbonate 24.8 mmol/L (22-26); PO2 73 mmHG (75-100); SO2 95 % (95-99); Total Carbon Dioxide 26 mmol/L; pCO2 37.5 mmHg (35-45); pH 7.43 (7.35-7.45)
[2022-04-28] MEDS: Lidocaine 5% Patch 2 PATCH TOPICAL (14:40)
[2022-04-28] MEDS: Dext 5%-0.45% NS 1,000 ML 75 ML IV (14:40)
[2022-04-28] MEDS: Acetaminophen 650 MG Suppository RC ×2 (14:42→22:06)
--- NOTE | 2022-04-28 19:00 | NURSING ---
bedside report completed with Giancarlo Antunez RN. pt repositioned in bed for comfort. pt POC reviewed with spouse at bedside. pt is aware morphine IV was discontinued, tylenol R/s is scheduled for pt discomfort. lidocaine patch is intact to lower back, d/t chronic pain. pt take Vicodin scheduled for pain at home. pt noted to vocalize discomfort with movement. Potential effects of medications and mentality in elderly discussed with spouse at length. per Giancarlo pt is most comfortable on L side. pt spouse aware visitation ends 8pm, pt spouse states, I will not leave, you can call the police. charge nurse aware will monitor.
[2022-04-28] MEDS: Heparin Injection (Vial) 5,000 UNIT/ML VIAL 5000 UNIT SC (22:17)
[2022-04-29] VITALS (10 sets, daily range): BP systolic 120–139; BP diastolic 61–70; PULSE 65–87; RESP 14–20; TEMP 36.6–37.3; O2SAT 94–100; BMI 28.2
[2022-04-29] MEDS: Orphenadrine 60 MG/2 ML Ampul IM (01:08)
[2022-04-29] MEDS: Dext 5%-0.45% NS 1,000 ML 75 ML IV ×2 (03:02→17:01)
[2022-04-29] MEDS: Acetaminophen 650 MG Suppository RC (05:39)
[2022-04-29] MEDS: Heparin Injection (Vial) 5,000 UNIT/ML VIAL 5000 UNIT SC ×3 (05:40→20:54)
[2022-04-29 07:33] LABS: Absolute Lymphocyte Count 1.09 X10^3/uL (0.83-4.51); Absolute Neutrophil Count 6.3 X10^3/uL (2.0-7.7); Basophil# 0.01 X10^3/uL; Basophil% 0.1 % (0-1); Eosinophil# 0.41 X10^3/uL; Eosinophils% 4.7 % (0-5); Hematocrit 40.3 % (40-54); Hemoglobin 13.4 g/dL (13.0-16.5); Lymphocyte # 1.09 X10^3/ul (0.83-4.51); Lymphocyte % 12.6 % (19-41); Mean Corp Hgb Conc 33.3 g/dL (32-36); Mean Corpuscular Volume 102.3 fL (80-94); Mean Platelet Vol. 9.2 fl (6.2-12.0); Monocyte# 0.82 X10^3/uL; Monocyte% 9.5 % (0-10); NRBC Flagged by Analyzer 0 % (0-5); Neutrophil % 72.9 % (47-70); Platelet Count 286 K/mm3 (150-450); RBC Distribution Width CV 13.8 % (11.6-14.6); RBC Distribution Width SD 52.6 fl (35.1-43.9); Red Blood Count 3.94 M/mm3 (4.6-6.2); White Blood Count 8.7 K/mm3 (4.4-11.0)
[2022-04-29 07:50] LABS: AST(SGOT) 15 U/L (15-37); Alanine Aminotransfer ALT/SGPT 18 U/L (16-61); Albumin, Serum 3.8 g/dL (3.2-5.0); Alkaline Phosphatase 79 U/L (45-117); Anion Gap 10 (5-15); BUN 17 mg/dL (7-18); Calcium,Total 8.9 mg/dL (8.5-10.1); Chloride 104 mmol/L (98-107); Creatinine, Serum 0.89 mg/dL (0.70-1.30); EST Glomerular Filtration Rate 87 mL/min (>60); Est Glom Filt Rate - Afr Amer 105 mL/min (>60); Globulin 3.7 g/dL (2.2-4.2); Glucose 122 mg/dL (74-106); Potassium 3.6 mmol/L (3.5-5.1); Protein, Total 7.5 g/dL (6.4-8.2); Sodium Level 139 mmol/L (136-145)
[2022-04-29] MEDS: Lidocaine 5% Patch 2 PATCH TOPICAL (08:33)
[2022-04-29] MEDS: Aspirin 300 MG Suppository RC (12:03)
--- NOTE | 2022-04-29 13:04 | PN.HOSP_ITS ---
Subjective Subjective Follow-up on acute encephalopathy: Patient was seen and examined. He is much more awake, oriented to self but not to place. He remains confused. Objective Data Objective Data Vital Signs: Vital Signs Temp Pulse Resp BP Pulse Ox O2 Del Method 97.8 F 68 14 137/64 H 96 Room Air 04/29/22 08:10 04/29/22 08:10 04/29/22 08:10 04/29/22 08:10 04/29/22 08:10 04/29/22 08:10 Oxygen Delivery Method Room Air Weight: 86.6 kg Body Mass Index (BMI) 28.2 Intake & Output: Intake and Output for Last 24 Hours 04/27/22 04/28/22 04/29/22 23:59 23:59 23:59 Intake Total 927.5 / 927.5 Output Total 450 / 950 500 / 500 Balance -450 / -950 427.5 / 427.5 Lab / Micro Data Result Diagrams: 04/29/22 07:15 04/29/22 07:15 Labs: Laboratory Results - last 24 hr 04/28/22 16:14: Ammonia 23.0 04/29/22 07:15: WBC 8.7, RBC 3.94 L, Hgb 13.4, Hct 40.3, MCV 102.3 H, MCH 34.0 H , MCHC 33.3, RDW Std Deviation 52.6 H, RDW Coeff of Bola 13.8, Plt Count 286, MPV 9.2, Immature Gran % (Auto) 0.200, Neut % (Auto) 72.9 H, Lymph % (Auto) 12.6 L, [place] % (Auto) 9.5, Eos % (Auto) 4.7, Baso % (Auto) 0.1, Absolute Neuts (auto) 6.3, Absolute Lymphs (auto) 1.09, Nucleated RBC % 0 04/29/22 07:15: Sodium 139, Potassium 3.6, Chloride 104, Carbon Dioxide 25.0, Anion Gap 10, BUN 17, Creatinine 0.89, Estim Creat Clear Calc 65.10, Est GFR (MDRD) Af Amer 105, Est GFR (MDRD) Non-Af 87, BUN/Creatinine Ratio 19.0, Glucose 122 H, Calcium 8.9, Total Bilirubin 0.60, AST 15, ALT 18, Alkaline Phosphatase 79, Total Protein 7.5, Albumin 3.8, Globulin 3.7, Albumin/Globulin Ratio 1.0 Micro: Microbiology 04/28/22 01:27 Urine, Clean Catch Urine Culture - Preliminary Culture exhibits no growth. 04/28/22 04:30 Nasal Secretion SARS-CoV-2 & FLU Antigen (Rapid) - Final ABG Data ABG results: ABG 04/28/22 13:04 Specimen Type ART Sample Site R RADIAL pH 7.43 Bicarbonate Actual 24.8 Total CO2 26 Base Excess 1 O2 Saturation 95 ABG pCO2 37.5 ABG pO2 73 L [place] Test Y O2 Delivery Device ROOM AIR Radiography Diagnostic Testing: Radiology Impression Ankle X-Ray 04/28/22 14:15 IMPRESSION: Chronic posttraumatic and postoperative changes of the left ankle as above. Soft tissue swelling. Electronically Signed: Lexie West MD at 14:49 EST Reading Location ID and State: [facility] / [place] Tel , Service support , Physical Exam Narrative Physical exam: General: Alert, confused, oriented to person, but not place or time HEENT: Atraumatic Oral: Moist Mucosa Neck: Supple Lungs: Diminished to auscultation Cardiovascular: HS I+II, regular, no murmurs Abdomen: Bowel Sounds Present, Soft, Non Tender Extremities: No edema Skin: No rashes, No breakdown Neurological: Confused, no focal neurological deficit Psych/Mental Status: Appropriate Assessment & Plan Assessment/Plan (1) Encephalopathy acute: PLAN: Plan 1.? Acute encephalopathy, unclear etiology, slowly improving CT of the head, CTA of the head and neck, MRI brain have been unremarkable for acute stroke Chest x-ray and UA are negative for infectious etiology Urine tox is unremarkable. COVID-19 PCR is negative.? ABGs are negative.? LFTs unremarkable TSH is 2.51, vitamin B12 is 295, ammonia 23 X-ray of the left ankle- chronic posttraumatic and postoperative changes of left ankle ST/OT/PT to re-evaluate Continue scheduled Tylenol 650 rectally 3 times daily, morphine as needed Tele-neurology recommendations reviewed 2.? Chronic back pain, history of fracture of the ankle, bimalleolar, on the left Tenderness on exam of both joints Would continue with Lidoderm patches to the back 3.? History of gout, will continue on allopurinol if able to eat 4. DVT PPx- Heparin SC Charges/Coding Visit Charges Inpatient E&M: 72405 Subs Hosp L3
[2022-04-29] MEDS: Acetaminophen 500 MG Tablet 1000 MG PO ×2 (15:05→20:54)
--- NOTE | 2022-04-29 18:31 | NURSING ---
Daughter and in with patient. Discussed poc for tonight nurse asked for patient to have less stimulation tonight since has not slept last night or took a nap today.. Encouraged to go home to sleep. states she is staying discussed policy of no patient families staying at this time . Patients states she will stay and does not care what the policy is. she feels it is a safety thing for him and she is staying. Explained that we have him on the camera and lightest bed alarm setting. Nurse said ok just wanted you to know what the policy is at this time. Daughter did not speak instead was in corner with her father. Earlier today Daughter spoke with this nurse and apologized about how patients acted yesterday to the doctor and staff. Daughter states that she is the POA not the . has only been for 1 year. is not to make any health decisions per daughter.
[2022-04-30] VITALS (7 sets, daily range): BP systolic 114–131; BP diastolic 50–76; PULSE 58–84; RESP 15–20; TEMP 36.6–37.3; O2SAT 95–99; BMI 28.2
[2022-04-30 05:03] LABS: Absolute Lymphocyte Count 1.57 X10^3/uL (0.83-4.51); Absolute Neutrophil Count 4.6 X10^3/uL (2.0-7.7); Basophil# 0.02 X10^3/uL; Basophil% 0.3 % (0-1); Eosinophil# 0.52 X10^3/uL; Hematocrit 40.2 % (40-54); Hemoglobin 13.8 g/dL (13.0-16.5); Lymphocyte # 1.57 X10^3/ul (0.83-4.51); Lymphocyte % 21.2 % (19-41); Mean Corp Hgb Conc 34.3 g/dL (32-36); Mean Corpuscular Hgb 35.4 pg (27.0-32.0); Mean Corpuscular Volume 103.1 fL (80-94); Mean Platelet Vol. 9.5 fl (6.2-12.0); Monocyte# 0.71 X10^3/uL; Monocyte% 9.6 % (0-10); NRBC Flagged by Analyzer 0 % (0-5); Neutrophil # 4.59 X10^3/uL (2.7-7.7); Neutrophil % 61.8 % (47-70); Platelet Count 292 K/mm3 (150-450); RBC Distribution Width CV 13.9 % (11.6-14.6); RBC Distribution Width SD 52.6 fl (35.1-43.9); White Blood Count 7.4 K/mm3 (4.4-11.0)
[2022-04-30 05:28] LABS: ALB/GLOB Ratio 0.9 RATIO (0.9-2.4); AST(SGOT) 16 U/L (15-37); Alanine Aminotransfer ALT/SGPT 19 U/L (16-61); Albumin, Serum 3.5 g/dL (3.2-5.0); Alkaline Phosphatase 75 U/L (45-117); Anion Gap 9 (5-15); BUN 21 mg/dL (7-18); BUN/Creat Ratio 22.2 RATIO (10-20); Calcium,Total 8.5 mg/dL (8.5-10.1); Chloride 105 mmol/L (98-107); Creatinine, Serum 0.95 mg/dL (0.70-1.30); EST Glomerular Filtration Rate 81 mL/min (>60); Est Glom Filt Rate - Afr Amer 98 mL/min (>60); Estimated Creatinine Clearance 60.98 ml/min; Globulin 3.7 g/dL (2.2-4.2); Glucose 127 mg/dL (74-106); Potassium 3.5 mmol/L (3.5-5.1); Protein, Total 7.2 g/dL (6.4-8.2); Sodium Level 137 mmol/L (136-145)
[2022-04-30] MEDS: Heparin Injection (Vial) 5,000 UNIT/ML VIAL 5000 UNIT SC (06:24)
[2022-04-30] MEDS: Dext 5%-0.45% NS 1,000 ML 75 ML IV (06:24)
[2022-04-30] MEDS: Acetaminophen 500 MG Tablet 1000 MG PO (06:24)
[2022-04-30] MEDS: Lidocaine 5% Patch 2 PATCH TOPICAL (10:22)
[2022-04-30] MEDS: Aspirin E.C. 81 MG Tablet PO (10:29)
--- NOTE | 2022-04-30 11:08 | DCINST_ITS ---
Discharge Instructions Diet Discharge Diet: No restrictions Activity Discharge Activity: Return to Normal Activity Follow Up Care Test Results: Test results from this visit will be discussed in further detail at your follow- up appointment, if applicable. Discharge Plan Admission Admit Date/Time: 04/28/22 01:59 Primary Reason for Your Visit: Acute encephalopathy Attending Provider: Oly Gonzalez Primary Care Provider: Choco Burgos Consulting Providers: Jeff Carlin Instructions Additional Instructions / Restrictions: Continue to keep yourself hydrated You can take extra-srength Tylenol twice a day as needed for pain Follow-up with your PCP within 1 week Discharge Orders/Prescriptions Prescriptions: Continued celecoxib 200 MG capsule 200 mg PO DAILY hydrocodone-acetaminophen 1 EACH tablet 1 tab PO TID PRN PRN (Reason: Pain Score 1-10) allopurinol 300 MG tablet 300 mg PO DAILY vitamin E 200 unit Capsule 200 unit PO DAILY nystatin 500,000 UNIT/5 ML suspension 500,000 unit PO 4X/DAY Discontinued zolpidem 5 MG tablet 5 mg PO QHS PRN PRN (Reason: Sleep) Referrals / Follow Up: Choco Burgos DO [Primary Care Provider] - In 1 Week Disposition Disposition (needs filled in before D/C Order can be placed): Home, Self Care
--- NOTE | 2022-04-30 11:33 | DS.PCM_ITS ---
Providers Date of Admission: 04/28/22 Date of Discharge: 04/30/22 Primary Care Physician: Dr. Choco Burgos, Reason For Visit: ACUTE CVA Diagnosis Discharge Diagnosis (1) Encephalopathy acute: Status: Acute Code(s): G93.40 - Encephalopathy, unspecified Plan 1.?Acute encephalopathy, unclear etiology 2.?Chronic back pain, history of fracture of the ankle, bimalleolar, on the left 3.?History of gout Medications at Discharge Home Medications celecoxib 200 mg capsule 200 mg PO DAILY Arthritis 04/27/20 hydrocodone 10 mg-acetaminophen 325 mg tablet 1 tab PO TID PRN PRN Pain Score 1- 10 04/27/20 allopurinol 300 mg tablet 300 mg PO DAILY GOUT 05/09/20 vitamin E 200 unit capsule 200 unit PO DAILY vitamin 04/28/22 lidocaine 5 % topical patch (Lidoderm) 2 patch topical DAILY 15 days #30 ea 04/30/22 nystatin 100,000 unit/mL oral suspension 500,000 unit PO 4X/DAY sore mouth 04/30/22 Hospital Course Operations None Procedures 2-D Echocardiogram Summary of Care Provided Minutes Spent on Discharge: 45 Hospital Course: 81-year-old male with past medical history of recent left ankle fracture status postsurgery, history of gout who comes in with confusion. On the day of admission, patient was last known well about 1:30pm-3pm. He slept and woke up around 5:30 PM was found to be very confused and could not talk. The paramedics were called to the house and patient was found to be agitated. He appeared very weak and unable to wake up. In the emergency room patient's CT of the brain as well as CT of the head were unremarkable. Urine tox was positive for opiates. Patient is on Vicodin at home. Chest x-ray and UA were negative for infectious etiology. COVID-19 PCR, ABGs, LFTs were unremarkable. Patient was admitted to the progressive care unit and monitored on acute stroke protocol. MRI brain was unremarkable. Patient continued to be encephalopathic and hypoactive, not responding positive to commands. TSH was 2.51, vitamin B12 was 295. Ammonia was 23. EEG was suggestive of mild to moderate diffuse encephalopathy. No epileptiform discharges seizure or lateralizing sign. Tele-neurology was consulted. Recommended IV thiamine; patient was started. Patient was kept off oxycodone. He was kept on scheduled Tylenol as well as Lidoderm patches to the back. Patient gradually improved and was back to his baseline at discharge. Patient was discharged home to follow-up with his primary care doctor within 1 week. Physical Exam Narrative Physical exam: General: Alert, oriented to person, place, time HEENT: Atraumatic Oral: Moist Mucosa Neck: Supple Lungs: Diminished to auscultation Cardiovascular: HS I+II, regular, no murmurs Abdomen: Bowel Sounds Present, Soft, Non Tender Extremities: No edema Skin: No rashes, No breakdown Neurological: Confused, no focal neurological deficit Psych/Mental Status: Appropriate Weight / BMI Weight Weight: 86.6 kg Body Mass Index (BMI) 28.2 ABG / Lab / Microbiology Data Result Diagrams: 04/30/22 04:37 04/30/22 04:37 Laboratory: Laboratory Results - last 24 hr 04/30/22 04:37: WBC 7.4, RBC 3.90 L, Hgb 13.8, Hct 40.2, MCV 103.1 H, MCH 35.4 H , MCHC 34.3, RDW Std Deviation 52.6 H, RDW Coeff of Bola 13.9, Plt Count 292, MPV 9.5, Immature Gran % (Auto) 0.100, Neut % (Auto) 61.8, Lymph % (Auto) 21.2, [place] % (Auto) 9.6, Eos % (Auto) 7.0 H, Baso % (Auto) 0.3, Absolute Neuts (auto) 4.6, Absolute Lymphs (auto) 1.57, Nucleated RBC % 0 04/30/22 04:37: Sodium 137, Potassium 3.5, Chloride 105, Carbon Dioxide 23.0, Anion Gap 9, BUN 21 H, Creatinine 0.95, Estim Creat Clear Calc 60.98, Est GFR (MDRD) Af Amer 98, Est GFR (MDRD) Non-Af 81, BUN/Creatinine Ratio 22.2 H, Glucose 127 H, Calcium 8.5, Total Bilirubin 0.50, AST 16, ALT 19, Alkaline Phosphatase 75, Total Protein 7.2, Albumin 3.5, Globulin 3.7, Albumin/Globulin Ratio 0.9 Microbiology: Microbiology 04/28/22 01:27 Urine, Clean Catch Urine Culture - Final Culture exhibits no growth. 04/28/22 00:50 Blood Culture (Wb) - Right Forearm Blood Culture - Preliminary No growth in 48 hours. 04/28/22 00:37 Blood Culture (Wb) - Anticubital Left Blood Culture - Preliminary No growth in 48 hours. 04/28/22 04:30 Nasal Secretion SARS-CoV-2 & FLU Antigen (Rapid) - Final D/C Instructions Discharge Diet: No restrictions Meaningful Use Info Meaningful Use Diagnoses (Choose all that apply): None applicable Discharge Plan Admission Admit Date/Time: 04/28/22 01:59 Primary Reason for Your Visit: Acute encephalopathy Attending Provider: Oly Gonzalez Primary Care Provider: Choco Burgos Consulting Providers: Jeff Carlin Instructions Additional Instructions / Restrictions: Continue to keep yourself hydrated You can take extra-srength Tylenol twice a day as needed for pain Follow-up with your PCP within 1 week Patient Problems: Altered Health Status related to Hospitalization Patient Goals: *Optimal Level of Health *Keep Appointments *Medication Compliance *Remain Safe Discharge Orders/Prescriptions Prescriptions: New lidocaine [Lidoderm] 5 % adhesive patch,medicated 2 patch topical DAILY 15 Days Qty: 30 0RF Rx Instructions: leave on most painful area for up to 12 hrs Continued celecoxib 200 MG capsule 200 mg PO DAILY hydrocodone-acetaminophen 1 EACH tablet 1 tab PO TID PRN PRN (Reason: Pain Score 1-10) allopurinol 300 MG tablet 300 mg PO DAILY vitamin E 200 unit Capsule 200 unit PO DAILY nystatin 500,000 UNIT/5 ML suspension 500,000 unit PO 4X/DAY Discontinued zolpidem 5 MG tablet 5 mg PO QHS PRN PRN (Reason: Sleep) Referrals / Follow Up: Choco Burgos DO [Primary Care Provider] - In 1 Week Disposition Disposition (needs filled in before D/C Order can be placed): Home, Self Care Charges/Coding Visit Charges Inpatient E&M: 32056 Disch Hosp
--- NOTE | 2022-04-30 12:16 | CASEMGMT ---
MALLORY ABREU NOTE: Pt being discharged. PT/OT has worked w/pt and feel pt is safe to return home. ST eval reviewed and additional OP ST recommended for expressive aphasia. MALLORY ABREU to room to talk w/pt and , who is at bedside. Pt sitting up in recliner chair in room, awake/alert/oriented at this time. Discussed discharge planning. states does not feel pt needs any OP PT or OT. She was made aware of ST recommendations and states they may be interested in doing OP ST, but she wants to see how pt does @ home 1st and then they will decide. She did accept OP Script for ST and made aware they can take to any location of choice, if they decide to have pt go. She also was made aware to f/u with PCP if they decide they want pt to do OP PT or ST. She voices appreciation and denies having any additional discharge planning needs or concerns. Naren VASQUES RN, CM
== END 2022-04-30 13:20 | disposition home or self-care (01) | DRG 71 ==
LOC: ED 02:11 → PCU 02:24
PROVIDERS: Admitting Provider Hospitalist; Emergency Provider Emergency Medicine; PCP Family Medicine; Visit Provider Internal Medicine
DX: G93.40 Encephalopathy, unspecified (principal); R47.01 Aphasia; M10.9 Gout, unspecified; E04.1 Nontoxic single thyroid nodule; M54.9 Dorsalgia, unspecified; Z79.1 Long term (current) use of non-steroidal anti-inflammatories (NSAID); G89.29 Other chronic pain
CPT/HCPCS: 36415; 36600; 70450; 70496; 70498; 70551; 71045; 73600; 80048; 80053; 80061; 80307; 81001; 82140; 82607; 82803; 83036; 83605; 84443; 84484; 85025; 85610; 85730; 87040; 87086; 87428; 87493; 92526; 93005; 93306; 94762; 95819; 97116; 97162; 97166; 97530; 99285; Q9967; A4216; J3490; J7799

== ENCOUNTER → 2023-05-26 | Outpatient (CLI) | payer MEDICARE, SELFPAY ==
[2023-05-26 12:38] LABS: Absolute Lymphocyte Count 2.13 X10^3/uL (0.83-4.51); Absolute Neutrophil Count 1.9 X10^3/uL (2.0-7.7); Basophil# 0.03 X10^3/uL; Basophil% 0.6 % (0-1); Eosinophil# 0.27 X10^3/uL; Eosinophils% 5.4 % (0-5); Hematocrit 40.1 % (40-54); Hemoglobin 13.2 g/dL (13.0-16.5); Lymphocyte # 2.13 X10^3/ul (0.83-4.51); Lymphocyte % 42.5 % (19-41); Mean Corp Hgb Conc 32.9 g/dL (32-36); Mean Corpuscular Hgb 34.8 pg (27.0-32.0); Mean Corpuscular Volume 105.8 fL (80-94); Mean Platelet Vol. 9.9 fl (6.2-12.0); Monocyte# 0.67 X10^3/uL; Monocyte% 13.4 % (0-10); NRBC Flagged by Analyzer 0 % (0-5); Neutrophil % 37.9 % (47-70); Platelet Count 289 K/mm3 (150-450); RBC Distribution Width CV 13.2 % (11.6-14.6); RBC Distribution Width SD 51.4 fl (35.1-43.9); Red Blood Count 3.79 M/mm3 (4.6-6.2)
[2023-05-26 13:00] LABS: ALB/GLOB Ratio 1.2 RATIO (0.9-2.4); AST(SGOT) 19 U/L (15-37); Alanine Aminotransfer ALT/SGPT 20 U/L (16-61); Albumin, Serum 3.9 g/dL (3.2-5.0); Alkaline Phosphatase 65 U/L (45-117); Anion Gap 5 (5-15); BUN 27 mg/dL (7-18); BUN/Creat Ratio 22.7 RATIO (10-20); Calcium,Total 8.3 mg/dL (8.5-10.1); Chloride 107 mmol/L (98-107); Creatinine, Serum 1.19 mg/dL (0.70-1.30); EST Glomerular Filtration Rate 62 mL/min (>60); Est Glom Filt Rate - Afr Amer 75 mL/min (>60); Globulin 3.3 g/dL (2.2-4.2); Glucose 83 mg/dL (74-106); Potassium 4.2 mmol/L (3.5-5.1); Protein, Total 7.2 g/dL (6.4-8.2); Sodium Level 140 mmol/L (136-145); T4 Free Direct 0.84 ng/dL (0.76-1.46); Thyroid Stim Hormone (TSH) 3.62 uIU/mL (0.358-3.74)
== END | disposition home or self-care (01) ==
LOC: BFHLAB 09:00
PROVIDERS: PCP Family Medicine; Visit Provider Family Medicine
DX: I10 Essential (primary) hypertension (principal); E06.3 Autoimmune thyroiditis
CPT/HCPCS: 36415; 80053; 84439; 84443; 85025

== ENCOUNTER → 2023-10-21 | Outpatient (CLI) | payer MEDICARE, SELFPAY | END | disposition home or self-care (01) | PROVIDERS: PCP Family Medicine; Referring Provider Internal Medicine Cardiovascular Disease; Visit Provider Internal Medicine Cardiovascular Disease | DX: R00.1 Bradycardia, unspecified (principal) | CPT/HCPCS: 93225; 93226 ==

== ENCOUNTER → 2024-05-28 | Outpatient (CLI) | payer MEDICARE, SELFPAY ==
[2024-05-28 15:17] LABS: Absolute Lymphocyte Count 2.26 X10^3/uL (0.83-4.51); Absolute Neutrophil Count 2.1 X10^3/uL (2.0-7.7); Basophil# 0.01 X10^3/uL; Basophil% 0.2 % (0-1); Eosinophil# 0.25 X10^3/uL; Eosinophils% 4.7 % (0-5); Hematocrit 40.6 % (40-54); Hemoglobin 13.3 g/dL (13.0-16.5); Lymphocyte # 2.26 X10^3/ul (0.83-4.51); Lymphocyte % 42.9 % (19-41); Mean Corp Hgb Conc 32.8 g/dL (32-36); Mean Corpuscular Hgb 35.2 pg (27.0-32.0); Mean Corpuscular Volume 107.4 fL (80-94); Mean Platelet Vol. 9.8 fl (6.2-12.0); Monocyte# 0.62 X10^3/uL; Monocyte% 11.8 % (0-10); NRBC Flagged by Analyzer 0 % (0-5); Neutrophil # 2.12 X10^3/uL (2.7-7.7); Neutrophil % 40.2 % (47-70); Platelet Count 302 K/mm3 (150-450); RBC Distribution Width CV 13.5 % (11.6-14.6); RBC Distribution Width SD 53.9 fl (35.1-43.9); Red Blood Count 3.78 M/mm3 (4.6-6.2); White Blood Count 5.3 K/mm3 (4.4-11.0)
[2024-05-28 15:51] LABS: ALB/GLOB Ratio 1.2 RATIO (0.9-2.4); AST(SGOT) 17 U/L (15-37); Alanine Aminotransfer ALT/SGPT 30 U/L (16-61); Albumin, Serum 3.7 g/dL (3.2-5.0); Alkaline Phosphatase 65 U/L (45-117); Anion Gap 3 (5-15); BUN 23 mg/dL (7-18); BUN/Creat Ratio 18.7 RATIO (10-20); Calcium,Total 8.7 mg/dL (8.5-10.1); Chloride 105 mmol/L (98-107); Creatinine, Serum 1.23 mg/dL (0.70-1.30); EST Glomerular Filtration Rate 60 mL/min (>60); Est Glom Filt Rate - Afr Amer 72 mL/min (>60); Globulin 3.2 g/dL (2.2-4.2); Glucose 135 mg/dL (74-106); Potassium 4.1 mmol/L (3.5-5.1); Protein, Total 6.9 g/dL (6.4-8.2); Sodium Level 139 mmol/L (136-145); T4 Free Direct 0.82 ng/dL (0.76-1.46)
== END | disposition home or self-care (01) ==
LOC: BFHLAB 11:38
PROVIDERS: PCP Family Medicine; Visit Provider Family Medicine
DX: D75.89 Other specified diseases of blood and blood-forming organs (principal); E83.51 Hypocalcemia; R79.9 Abnormal finding of blood chemistry, unspecified; E06.3 Autoimmune thyroiditis
CPT/HCPCS: 36415; 80053; 84439; 84443; 85025

== ENCOUNTER → 2025-06-03 | Outpatient (CLI) | payer MEDICARE, SELFPAY ==
[2025-06-03 15:11] LABS: Hematocrit 41.9 % (40-54); Hemoglobin 13.9 g/dL (13.0-16.5); Immature Granulocytes Count 0.010 X10^3/uL (0.0-0.0); Mean Corp Hgb Conc 33.2 g/dL (32-36); Mean Corpuscular Volume 107.4 fL (80-94); Mean Platelet Vol. 9.9 fl (6.2-12.0); NRBC Flagged by Analyzer 0 % (0-5); Platelet Count 315 K/mm3 (150-450); RBC Distribution Width CV 13.4 % (11.6-14.6); RBC Distribution Width SD 53.1 fl (35.1-43.9); Red Blood Count 3.90 M/mm3 (4.6-6.2); White Blood Count 5.3 K/mm3 (4.4-11.0)
[2025-06-03 15:39] LABS: AST(SGOT) 21 U/L (<=37); Alanine Aminotransfer ALT/SGPT 19 U/L (<=46); Albumin, Serum 4.4 g/dL (3.4-4.8); Alkaline Phosphatase 67 U/L (40-129); Anion Gap 10 (7-18); BUN 27 mg/dL (4-19); BUN/Creat Ratio 29.2 RATIO (10-20); Calcium,Total 9.1 mg/dL (7.6-11.0); Carbon Dioxide 25.9 mmol/L (20.0-29.0); Chloride 103 mmol/L (96-106); Globulin 2.8 g/dL (2.2-4.2); Glucose 90 mg/dL (70-99); Potassium 4.1 mmol/L (3.5-5.1); Uric Acid 4.1 mg/dL (3.5-7.2)
== END | disposition home or self-care (01) ==
LOC: BFHLAB 11:19
PROVIDERS: PCP Family Medicine; Visit Provider Family Medicine
DX: E03.9 Hypothyroidism, unspecified (principal); M10.9 Gout, unspecified; Z51.81 Encounter for therapeutic drug level monitoring
CPT/HCPCS: 36415; 80053; 84439; 84443; 84550; 85025